=== PATIENT | male | born 1945 | race Caucasian/White ===

== ENCOUNTER 2018-09-05 14:09 | Inpatient (IN) | payer MEDICARE, OTHER ==
[~2018-09-05] VITALS: Ht 172.7 cm; Wt 86.2 kg
--- OUTSIDE RECORDS SUMMARY | ~2018-09-05 | XMS | Clinical Summary ---
Demographics + + + | Address | [address] | | | [place] [address] | + + + | Home Phone | | + + + | Preferred Language | Unknown | + + + | Marital Status | Single | + + + | Protestant Affiliation | Unknown | + + + | Race | Unknown | + + + | Ethnic Group | Unknown | + + + Author + + + | Author | [facility] | + + + | Organization | [facility] | + + + | Address | Unknown | + + + | Phone | Unavailable | + + + Support + + +---------+ + | Name | Relationship | Address | Phone | + + +---------+ + | Guero Lazo | ECON | Unknown | | + + +---------+ + Care Team Providers + +------+ + | Care Computer Equipment Repairer Name | Role | Phone | + +------+ + | Dr. Darshan | PP | Unavailable | + +------+ + Allergies Not on File Current Medications Not on file Active Problems Not on file Social History + +-------+ +--------+------+ | Tobacco Use | Types | Packs/Day | Years | Date | | | | | Used | | + +-------+ +--------+------+ | Never Assessed | | | | | + +-------+ +--------+------+ + + + | Sex Assigned at | Date Recorded | | | | + + + | Not on file | | + + + Plan of Treatment Not on file Results Not on filefrom Last 3 Months"
--- OUTSIDE RECORDS SUMMARY | ~2018-09-05 | XMS | Clinical Summary ---
Demographics + + + | Address | [address] | | | [place] [address] | + + + | Home Phone | | + + + | Preferred Language | Unknown | + + + | Marital Status | Single | + + + | Catholic Affiliation | Unknown | + + + | Race | Unknown | + + + | Ethnic Group | Unknown | + + + Author + + + | Author | [facility] | + + + | Organization | [facility] | + + + | Address | Unknown | + + + | Phone | Unavailable | + + + Support + + +---------+ + | Name | Relationship | Address | Phone | + + +---------+ + | Guero Lazo | ECON | Unknown | | + + +---------+ + Care Team Providers + +------+ + | Care Foreman Shipping Department Name | Role | Phone | + [...]
--- OUTSIDE RECORDS SUMMARY | ~2018-09-05 | XMS | Clinical Summary ---
Demographics + + + | Address | [address] | | | [place] [address] | + + + | Home Phone | | + + + | Preferred Language | Unknown | + + + | Marital Status | Single | + + + | Spiritism Affiliation | Unknown | + + + | Race | Unknown | + + + | Ethnic Group | Unknown | + + + Author + + + | Author | [facility] | + + + | Organization | [facility] | + + + | Address | Unknown | + + + | Phone | Unavailable | + + + Support + + +---------+ + | Name | Relationship | Address | Phone | + + +---------+ + | Guero Lazo | ECON | Unknown | | + + +---------+ + Care Team Providers + +------+ + | Care Gear Hobber Name | Role | Phone | + [...]
--- NOTE | 2018-09-05 18:20 | NUR ---
1811: PT ARRIVED TO MED-SURG VIA STRETCHER. HE STATES HIS ABD DISTENTION IS RATED AT 3/10 WHICH HE STATES IS ACCEPTABLE AND DENIES THE NEED FOR ANYTHING FOR IT AT THIS TIME. NG TUBE IN PLACE. NERUO INTACT.
--- NOTE | 2018-09-05 18:30 | NUR ---
NG CONNECTED TO LIWS AT THIS TIME. IV LR BOLUS STARTED OREDED.
--- NOTE | 2018-09-05 19:20 | NUR ---
BEDSIDE REPORT RECEIVED FROM OFFGOING RN. PT LYING IN BED, PARTICIPATES IN REPORT. DENIES NEEDS AT THIS TIME. CALL LIGHT IN REACH.
--- NOTE | 2018-09-05 20:28 | NUR ---
PT CALLED, IV WAS ALARMING, REQUESTED THE URINAL. STATES HE IS ABLE TO USE URINAL ON HIS OWN. INSTRUCTED TO CALL WHEN DONE.
--- NOTE | 2018-09-05 21:39 | NUR ---
PT ASSESSMENT COMPLETE. PT RESTING WITH EYES CLOSED. PT WAKES EASILY TO VOICE. PT RATES PAIN 2-3/10 TO ABD. DENIES SOB OR NAUSEA. PT ABD SEVERLY DISTENDED. BT'S ACTIVE. PT REPORTS TENDERNESS TO PALPTION. NG TO LIWS WITH SMALL AMOUNT OF LIGHT BROWN TO CLEAR DRAINAGE PRESENT. PT DENIES NEEDS AT THIS TIME. CALL LIGHT IN REACH. POC FOR THIS SHIFT DICUSSED WITH PT. PT DENIES QUESTIONS, UNDERSTANDING STATED.
--- NOTE | 2018-09-05 22:53 | NUR ---
V/S AND OUTPUT TAKEN AND RECORDED. ICE CHIPS REFILLED. NO OTHER NEEDS AT THIS TIME.
--- NOTE | 2018-09-05 23:15 | NUR ---
PT RESTING IN BED WITH EYES CLOSED. RESPIRATIONS EVEN AND UNLABORED. PT APPEARS TO BE SLEEPING. CALL LIGHT IN REACH.
--- NOTE | 2018-09-06 02:00 | NUR ---
PT RESTING IN BED WITH EYES CLOSED. RESPIRATIONS EVEN AND UNLABORED. PT APPEARS TO BE SLEEPING. CALL LIGHT WITHIN REACH.
--- NOTE | 2018-09-06 03:46 | NUR ---
PT ASSESSMENT COMPLETE. PT RESTING IN BED, AWAKE. PT REPORTS PAIN INCREASED TO 3/10. REQUESTS PRN PAIN MEDICATION, ADMINISTERED ORDERED. PT DENIES SOB. REPORTS OCCASIONAL NAUSEA, DENIES AT THIS TIME. LUNG SOUNDS DIMINISHED IN BILATERAL BASES. NG TUBE CONTINUES TO PUT OUT VERY LIGHT BROWN DRAINAGE. DRESSING SLIGHTLY COMING OFF, REAPPLIED BY THIS MONORAIL CAR OPERATOR. PT STATES HE HAD A "SNEEZING FIT" AND WAS WORRIED TUBE HAD BECOME DISLODGED. PT REASSURED BY THIS MONORAIL CAR OPERATOR THAT TUBE HAD ACTIVE DRAINAGE PRESENT. BT'S ACTIVE. ABD REMAINS TENDER TO PALPATION. PT DENIES NEEDS AT THIS TIME. CALL LIGHT IN REACH.
--- NOTE | 2018-09-06 06:25 | NUR ---
PT TO XRAY VIA WC. IV SL. NG TUBE DISCONNECTED.
--- NOTE | 2018-09-06 06:26 | NUR ---
PT SLEPT WELL THIS SHIFT. TORADOL X 1 FOR PAIN 3/10 TO ABD. BT'S ACTIVE. ABD SEVERLY DISTENDED, TENDER TO PALPATION. NG TUBE TO LIWS, CLEAR OUTPUT WITH SLIGHT BROWN TINGE. USING URINAL APPROPRIATELY, NEEDS ENCOURAGEMENT TO ATTEMPT TO VOID. SBA. D5LR@ 125. NPO WITH ICE CHIPS. VS Q4 NON ROUTINE. ZOSYN.
--- NOTE | 2018-09-06 06:49 | NUR ---
PT RETURNED FROM XRAY, RECONNECTED TO IV AND NG TO LIWS. PT ENCOURAGED TO VOID, NO VOID SINCE 199. PT STATES HE WILL TRY.
--- NOTE | 2018-09-06 07:49 | NUR ---
PATIENT IN BED RESTING WITH EYES CLOSED. CALL LIGHT IN REACH. NO FURTHER NEEDS AT THIS TIME.
--- NOTE | 2018-09-06 08:40 | NUR ---
PT RESTING QUIETLY IN BED. AROUSES EASILY TO VOICE. DENIES PAIN OR NAUSEA AT THIS TIME. NGT TO LOW INTERMITTENT SUCTION. SCANT AMOUNT OF PALE GREEN/YELLOW OUTPUT NOTED. ABD SEVERELY DISTENDED, HYPERACTIVE BT NOTED. PT DENIES FLATUS. IV INFUSING WNL. PT ALERT AND ORIENTED. CALL LIGHT WITHIN REACH.
--- NOTE | 2018-09-06 09:58 | NUR ---
PATIENT IN BED RESTING. CALL LIGHT IN REACH. NO FURTHER NEEDS AT THIS TIME. PATIENT REFUSED SHOWER AT THIS TIME.
--- NOTE | 2018-09-06 11:23 | NUR ---
FIRST TAP WATER ENEMA COMPLETED AT THIS TIME. INSERTED TIP 4INCH INTO RECTUM. ADMINISTERED 250ML OF TAP WATER, FLUID BEGAN LEAKING FROM ANUS. STOPPED FLUID FOR A COUPLE MINUTES AND ATTEMPTED TO ADMINISTER MORE BUT FLUID BEGAN LEAKING AGAIN. PT DENIED PAIN OR CRAMPING THROUGHOUT PROCEDURE. PT CURRENTLY RESTING IN BED ON LEFT SIDE. CALL LIGHT WITHIN REACH.
--- NOTE | 2018-09-06 12:15 | NUR ---
PT SBA TO RESTROOM. PASSED MOSTLY WATER FROM ENEMA, LIGHT BROWN LIQUID. SECOND TAP WATER ENEMA COMPLETED AT THIS TIME. AGAIN WAS ONLY ABOUT TO ADMINISTER APPROX 250ML OF WATER, MODERATE AMOUNT OF WATER CAME BACK OUT OF THE RECTUM UPON ADMINISTRATION. PT DENIED PAIN OR CRAMPING. NOW RESTING IN BED, CALL LIGHT WITHIN REACH.
--- NOTE | 2018-09-06 12:45 | NUR ---
PT SBA TO RESTROOM TO PASS ENEMA. MINIMAL STOOL NOTED. PT BACK TO BED. DENIES PAIN OR NAUSEA. NGT TO SUCTION PER ORDERS. CALL LIGHT WITHIN REACH.
--- NOTE | 2018-09-06 13:00 | NUR ---
PT ONLY HAD 50ML URINE OUT. BLADDER SCANNED FOR 60ML. DR. PINA NOTIFIED. 500ML LR BOLUS ORDERED.
--- NOTE | 2018-09-06 13:22 | NUR ---
CHESTER JESUS REQUESTED I NOT VISIT PT AT THIS TIME-HE IS INVOLVED IN BOWL PREP FOR SCOPE LATER TODAY. WILL FOLLOW NEEDED
--- NOTE | 2018-09-06 13:27 | NUR ---
PATIENT IN BED RESTING. CALL LIGHT IN REACH. NO FURTHER NEEDS AT THIS TIME.
--- NOTE | 2018-09-06 14:07 | NUR ---
PT OFF THE UNIT AT THIS TIME WITH MISSY BRIGGS FROM SURGERY.
--- NOTE | 2018-09-06 15:04 | NUR ---
PT COMPLETED PREOP WIPES. AMB TO STRETCHER AND TRANSPORTED TO OR AT THIS TIME.
--- NOTE | 2018-09-06 15:43 | NUR ---
09/06/18 1543 Samanta Ferreira 1515 PT ARRIVED IN PACU SLEEPY LAYING ON LEFT SIDE. ABD FIRM AND DISTENDED. NGT TO LCS. 1525 REPOSITIONED TO BACK. 1540 ANESTHESIA AT BEDSIDE WITH NEW ORDERS.
--- NOTE | 2018-09-06 16:29 | NUR ---
PT RETURNED FROM PACU VIA STRETCHER, AMB WITH MINIMAL ASSIST TO HOSPITAL BED. PT DROWSY BUT ORIENTED TO ALL. DENIES PAIN BUT REPORTS "A LOT OF DISCOMFORT" IN ABD. ABD SEVERLY DISTENDED AND FIRM. HYPER ACTIVE BT NOTED THROUTOUT. PT NOTED TO HAVE MOIST COUGH, STATES "I HAVE HAD A COLD FOR A FEW DAYS." SMALL AMOUNT OF SPUTUM PRODUCTION PER PT. DENIES SOB OR OTHER CONCERNS. CALL LIGHT WITHIN REACH.
--- NOTE | 2018-09-06 16:37 | NUR ---
NGT TO LOW INTERMITTENT WAL SUCTION PER ORDERS. PUTTING OUT BRIGHT GREEN DRAINAGE.
--- NOTE | 2018-09-06 17:00 | NUR ---
PT ATTEMPTED TO VOID UPON ARRIVING FROM PACU. UNABLE TO. BLADDER SCANNED FOR 170ML, DR. PINA AWARE.
--- NOTE | 2018-09-06 19:10 | NUR ---
REPORT RECEIVED FROM OFFGOING RN. PT IN SURGERY AT THIS TIME.
--- NOTE | 2018-09-06 19:22 | HP ---
[facility] [address], [place] [address] Signed ADMISSION DATE: 09/05/2018 REASON FOR ADMISSION: Colonic obstruction with rectosigmoid process. 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 He is well known to me socially for many years. He has had 48 hours of increasing abdominal pain, distention, and bloating. He had no associated nausea or vomiting. He presented to the emergency room, where he was evaluated by Dr. Jones. His abdominal distention was not associated with tenderness on examination. His stools have been very small and pellet-like, and he has had what he describes as "hemorrhoids," mainly manifestation of episodic rectal bleeding, but no protruding hemorrhoids that he is aware of. He was told that he had hemorrhoids on a free prostate exam a number of years ago, possibly 10 years ago. The patient has never had colonoscopy. His evaluation in the emergency room included a CT scan of the abdomen, which showed severe circumferential wall thickening in the rectosigmoid with surrounding fat stranding, and a 9 mm extraluminal fluid collection and gas suggestive of diverticulitis or peridiverticular abscess. There were diverticula described though not readily apparent to my examination. He had proximal obstructive findings including extreme small-bowel dilation and dilated colon as well. All of the stomach was not markedly distended, a nasogastric tube was passed and 200 mL of clear fluid was removed. Implement is not painful to him now that it is placed. Notable on CT scan, which I have reviewed, was the absence of any metastatic lesions to the liver nor other intraabdominal abnormalities. His laboratory studies show an elevated white count of 17.3 and hematocrit of 41.8. Liver enzymes are normal. He is admitted for further evaluation and care for rectosigmoid obstruction related either to neoplasm or diverticular process. PAST MEDICAL HISTORY: Significant for left inguinal hernia repair with mesh in [place], [place], about 8-10 years ago. He has no other medical problems that he is aware of. FAMILY HISTORY: Negative for colon cancer. His mother had breast cancer and his father lung cancer. A brother has had alcoholism and drug substance issues. Electronically Signed By: SUAD PINA MD 09/06/181921 PATIENT NAME: CLAUDIO PAZ HISTORY AND PHYSICAL DATE OF : 43 REPORT #: [id number] PHYSICIAN: SUAD PINA MD PCP: NO PRIMARY CARE PHYSICIAN REPORT IS CONFIDENTIAL AND NOT TO BE RELEASED WITHOUT AUTHORIZATION [facility] [address], [place] [address] Signed ALLERGIES: The patient has no known drug allergies. MEDICATIONS: He takes no medications on a routine basis. REVIEW OF SYSTEMS: He denies any shortness of breath or chest pain. He has felt "rundown" lately. He denies any prior or recent problems of cough, hematemesis, but has had occasions of blood per rectum in minimal amounts. PHYSICAL EXAMINATION: GENERAL: Pleasant white man, who does not look systemically toxic. HEENT: Trachea is midline. Mucous membranes are somewhat dry. NECK: He has no carotid bruit. There is no cervical adenopathy. CHEST: Clear. HEART: Regular without murmur. ABDOMEN: Tense and distended. It is not tender. There is no palpable mass. I detect no ascites clinically. EXTREMITIES: Show no clubbing, cyanosis, or edema. LABORATORY DATA: Lab studies show white count of 17.3, hematocrit 41.8, platelets 420,000. Electrolytes, creatinine 0.8, potassium 3.4, bicarb 22. Liver enzymes are normal. Albumin 3.8. DIAGNOSTIC DATA: I have reviewed the CT scan myself as well as the report as noted by Rebecca Le M.D., [facility]'s radiologist. ASSESSMENT AND PLAN: The patient has had progressive constipation and abdominal distention and now has rectosigmoid obstruction. The circumferential thickening of the colon is worrisome in my view for colon cancer, though the possibility of a diverticular process accounting for this is possible as well. A nasogastric tube was placed on the basis of his significant abdominal distention. He will likely benefit from fluid resuscitation, antibiotics, and consideration for a limited endoscopic evaluation to affirm or refute the possibility of obstructing neoplasm. If this does represent a diverticulitis issue rather than neoplasm, he may settle with antibiotics alone. Conversely, if obstruction persists or does not improve, then operative management may be required on that basis as well. I discussed all of this with him in detail. It is notable that he has no family history of colon cancer, but similarly has never had Electronically Signed By: SUAD PINA MD 09/06/181921 PATIENT NAME: CLAUDIO PAZ HISTORY AND PHYSICAL DATE OF : 43 REPORT #: [id number] PHYSICIAN: SUAD PINA MD PCP: NO PRIMARY CARE PHYSICIAN REPORT IS CONFIDENTIAL AND NOT TO BE RELEASED WITHOUT AUTHORIZATION [address] [address] Signed colon evaluation. He has no primary physician either, though admittedly he does appear to be in robust health otherwise. MD CLYDE Britt/LLUVIAL /[id number] cc: [facility] Copies: ~ Electronically Signed By: SUAD PINA MD 09/06/18 1922 PATIENT NAME: JACKSONCLAUDIO HISTORY AND PHYSICAL DATE OF : 43 REPORT #: [id number] PHYSICIAN: SUAD PINA MD PCP: NO PRIMARY CARE PHYSICIAN REPORT IS CONFIDENTIAL AND NOT TO BE RELEASED WITHOUT AUTHORIZATION
--- NOTE | 2018-09-06 19:24 | NUR ---
09/06/181923 Samanta Ferreira 190 PT ARRIVED IN PACU NON RESPOSIVE TO VERBAL/TACTILE STIMULI. SNORING. REU. 191 PT RESPOSIVE TO VERBAL STIMULI. FALLS BACK TO SLEEP WHEN NOT STIMULATED. 1919 PT WITH NO C/O'S AT THIS TIME.
--- NOTE | 2018-09-06 20:28 | NUR ---
PT ARRIVED TO FLOOR FROM PACU. PT PRIMARY RN, AND CREDENTIALING ANALYST PASSING OFF REPORT. PT ON 2 LITERS O2, WITH A HAY CATH. PT ABLE TO ASSIST IN SLIDING SELF OVER TO THE BED FROM THE STRETCHER. AWAKE, AWARE OF SURROUNDINGS.
--- NOTE | 2018-09-06 20:54 | NUR ---
PT ASSESSMENT COMPLETE. PT RETURNED FROM SURGERY AT 2024. PT STATES THAT PAIN IS WELL CONTROLLED, 1-06/06. O2 IN PLACE @ 2LPM VIA NC. CPOX IN PLACE. PT DENIES SOB. PT DENIES NAUSEA. BT'S ACTIVE. ABD MODERATELY DISTENDED. STOMA IS RED AND MOIST. COLOSTOMY BAG IN PLACE. PT STATES THAT HE "FEELS MUCH BETTER THAN HE HAS" WITHIN THE PAST FEW DAYS. PT PROVIDED WITH ICE WATER. PT TALKED ON THE PHONE WITH HIS SISTER AND UPDATED HER REGARDING SURGERY. PT DENIES QUESTIONS AT THIS TIME. CALL LIGHT IN REACH. POSTOP CARE AND POC DISCUSSED WITH PT.
--- NOTE | 2018-09-06 21:30 | NUR ---
INFORMED BY MUSICAL INSTRUMENT MAKER OR REPAIRER THAT COLOSTOMY BAG IS LEAKING. UPON ASSESSMENT, RED DRAINAGE LEAKING FROM SPACER APPARATUS BETWEEN WAFER AND COLLECTION BAG. SPACER PRESSED DOWN AROUND ALL EDGES. DOES NOT APPEAR TO BE LEAKING ANY FURTHER AT THIS POINT. STOMA IS LONGO RED, APPEARS MOIST, AND IS UNCHANGED FROM PREVIOUS. PT ASKS APPROPRIATE QUESTIONS ABOUT COLOSTOMY CARE AND INFECTION RISKS. EDUCATION PROVIDED. PT DENIES FURTHER NEEDS AT THIS TIME.
--- NOTE | 2018-09-06 22:30 | NUR ---
COLOSTOMY BAG ASSESSED. NO LONGER APPEARS TO BE LEAKING FROM SPACER, EXCEPT WHEN BAG AND SPACER ARE MANUALLY MANIPULATED. CHUX PLACED UDNER PT AND 2X2 GAUZE PLACED AT SPACER SITE IN CASE OF FURTHER DRAINAGE. PT READING A BOOK AT THIS TIME. DENIES FURTHER NEEDS. CALL LIGHT WITHIN REACH.
--- NOTE | 2018-09-07 00:45 | NUR ---
PT RESTING IN BED WITH PILLOW OVER HIS FACE. SA02 94%, HR 67. PT DOES NOT WAKE WHILE HUMAN CAPITAL CONSULTANT IN ROOM. APPEARS TO BE SLEEPING. CALL LIGHT IN REACH.
--- NOTE | 2018-09-07 02:49 | NUR ---
PT ASSESSMENT COMPLETE. PT DECLINES PAIN AT THIS TIME. STATES THAT HE EXPERIENCED SOME PAIN WHILE COUGHING. EDUCATION REGARDING SPLINTING THE ABDOMEN PROVIDED. PT STATES UNDERSTANDING. PT DENIES SOB OR NAUSEA. LUNG SOUNDS DIMINISHED IN BILATERAL BASES. O2 IN PLACE AT 2 LPM WITH SA02 OF 95%, O2 WEANED TO 1 LPM. ABDOMEN MODERATELY DISTENDING. BT'T ACTIVE. PT REPORTS TENDERNESS UPON PALPATION. STOMA IS RED AND MOIST, UNCHANGED FROM PREVIOUS. BLOOD TINGED FLUID WELL STOOL PRESENT IN COLOSTOMY BAG. COLOSTOMY APPLIANCE NO LONGER LEAKING. PT ICE WATER REFILLED, DENIES FURTHER NEEDS AT THIS TIME. CALL LIGHT IN REACH.
--- NOTE | 2018-09-07 03:40 | NUR ---
PT REPORTS FEELING "WAKEFUL". PT DENIES NEEDS AT THIS TIME. STATES THAT HE IS NOT UNCOMFORTABLE OR PAINFUL, JUST "WAKEFUL". CALL LIGHT IN REACH.
--- NOTE | 2018-09-07 05:45 | NUR ---
PT SLEPT WELL EARLY IN SHIFT. REPORTS ONLY "RESTING" AFTER 2 AM. NO REPORTS OF PAIN, NAUSEA, OR SOB. TOLERATING RA WELL. CPOX IN PLACE POST OP. LUNG SOUNDS DIM IN BASES. ABD MODERATELY DISTENDED. BT'S ACTIVE. PT REPORTS ABD TENDERNESS UPON PALPATION. STOMA RED AND MOIST. SANGUINEOUS DRAINAGE AND STOOL PRESENT IN COLOSTOMY BAG.HAY CATH WITH CONCENTRATED URINE.
--- NOTE | 2018-09-07 08:04 | NUR ---
PATIENT IN BED RESTING. CALL LIGHT IN REACH. NO FURTHER NEEDS AT THIS TIME.
--- NOTE | 2018-09-07 08:41 | NUR ---
PATIENT UP TO CHAIR FOR BREAKFAST. LINENS CHANGED. CALL LIGHT IN REACH. NO FURTHER NEEDS AT THIS TIME.
--- NOTE | 2018-09-07 10:00 | NUR ---
PT SITTING UP IN BED AWAKE. STATES "I'M FEELING MUCH BETTER." DENIES PAIN OR NAUSEA. TOLERATING CLEARS WELL. ABD DISTENTION HAS GREATLY IMPROVED. COLOSTOMY TO LEFT LOWER QUAD. OSTOMY APPLIANCE CDI. OSTOMY BRIGHT PINK/RED, MOIST. MODERATE AMOUNT OF AIR AND STOOL MOVEMENT FROM STOMA. BROWN LIQUID OUTPUT. SUTURES AND RED RUBBER TUBE NOTED AROUND EDGE OF STOMA.
[2018-09-07] MEDS ORDERED: IBU-200200 MG PO (10:27)
[2018-09-07] MEDS ORDERED: GUMMI BEAR MUL1 EACH PO (10:27)
--- NOTE | 2018-09-07 10:28 | NUR ---
MED REC COMPLETE
--- NOTE | 2018-09-07 12:10 | NUR ---
NOTED STOOL DRAINAGE UNDER COLOSTOMY APPLIANCE. APPLIANCE REMOVED, SKIN CLEANED THOROUGHLY AND NEW APPLIANCE APPLIED WITH SPACER ATTACHMENT. STOMA SITE BRIGHT RED AND MOIST, GOOD AIR AND STOOL MOVEMENT NOTED. PT REPORTS ONLY MILD TENDERNESS AT SITE WITH APPLIANCE CHANGE, OTHERWISE COMFORTABLE AND WITHOUT PAIN. SATNAM DECKER BY [facility] MANAGER FILM WITH SUPERVISION BY THIS RN. PT NOW RESTING IN BED WITH MULTIPLE VISITORS AT BEDSIDE. CALL LIGHT WITHIN REACH.
--- NOTE | 2018-09-07 13:34 | NUR ---
PT IS RESTING IN BED-NG TUBE OUT. PT WELCOMED ME IN, HAD JUST A MOMENT WITH HIM AND PHONE RANG. PT TOOK CALL, TOLD HIM I WOULD COME BACK. I LEFT, A PULP MIXER AND SOME OTHER VISITORS CAME TO CARE FOR PT. WILL CONTINUE TO FOLLOW NEEDED
--- NOTE | 2018-09-07 14:20 | NUR ---
PT SITTING UP IN BED. STOMA SITE REMAINS UNCHANGED. PT DENIES PAIN OR OTHER NEEDS OR CONCERNS. CALL LIGHT WITHIN REACH.
--- NOTE | 2018-09-07 16:00 | EKG ---
[facility] [address] [address] [place] [address] Signed Normal sinus rhythm Incomplete right bundle branch block Borderline ECG No previous ECGs available Confirmed by ANNELIESE FRASER MD ([id number]) on 09/07/2018 4:00:38 PM Electronically Signed By: ANNELIESE FRASER MD 09/07/18 1600 PATIENT NAME: CLAUDIO PAZ Electrocardiogram DATE OF : 43 PHYSICIAN: ANNELIESE FRASER MD REPORT #: [id number] REPORT IS CONFIDENTIAL AND NOT TO BE RELEASED WITHOUT AUTHORIZATION
--- NOTE | 2018-09-07 16:20 | NUR ---
PT AMB HALLWAY WITH SBA, KIRSTEN WELL.
--- NOTE | 2018-09-07 16:28 | NUR ---
PATIENT AMBLUATED IN HALLWAY 3 LAPS, SBA. NEW GOWN PROVIDED. PATIENT NOW IN BED RESTING. FRESH WATER GIVEN. CALL LIGHT IN REACH. NO FURTHER NEEDS AT THIS TIME.
--- NOTE | 2018-09-07 17:54 | OR ---
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 PROCEDURE PERFORMED: Decompressive loop, left-sided colostomy. ANESTHESIA: General endotracheal; Ivon Pereyra CRNA. INDICATION: This 72-year-old Kimmy montemayor was admitted by me yesterday, on September 05, 2018, presented to the emergency room and evaluated by Dr. Jones with marked abdominal distention. A CT scan showed obstruction in the region of the rectosigmoid. There appeared to be pericolonic and perirectal fat stranding and concern was maintained for possible diverticular process causing obstruction versus neoplasm. He was given a nasogastric tube for decompression, broad-spectrum antibiotics, and shows no improvement of his distention. Earlier today, he underwent limited colonoscopy after tap water enema preparation confirming a nearly completely obstructing rectosigmoid cancer starting in the midrectum. He has significant abdominal distention, persistent white cell elevation, decreased urine output, and emergency decompression is recommended. I discussed with him a tentative plan for emergency decompression of the colon, subsequent neoadjuvant chemoradiation therapy, and ultimately resection. He agrees to our current plan. FINDINGS: Marked abdominal distention was noted. Left colon was easily identified and a loop colostomy formed through a left-sided low lateral incision. A midline incision was not performed. The colostomy was matured allowing for some decompression and abdominal distention. Passage of a red rubber catheter retrograde and antegrade allowed for irrigation and decompression. I expect more full decompression to occur in the next day Electronically Signed By: SUAD PINA MD 09/07/18 1754 PATIENT NAME: CLAUDIO PAZ OPERATIVE REPORT DATE OF : 43 REPORT #: [id number] PHYSICIAN: SUAD PINA MD PCP: NO PRIMARY CARE PHYSICIAN REPORT IS CONFIDENTIAL AND NOT TO BE RELEASED WITHOUT AUTHORIZATION [facility] [address], [place] [address] Signed or two. DESCRIPTION OF PROCEDURE: The patient was brought to the operating room, given a general endotracheal anesthetic. Zosyn antibiotic was administered in the operating room close to his scheduled dose. A Hou catheter was placed by myself, which showed some turbid somewhat concentrated urine. The abdomen was clipped and prepared for chlorhexidine solution and draped sterilely. The anterior superior iliac spine and costal margin were marked and a relationship appropriate for colostomy identified. A transverse incision was made over that area in the left lateral abdomen. Dissection carried through the subcutaneous tissue with electrocautery. A somewhat Gridiron type incision was used allowing for entry into the peritoneal cavity. Inflammatory fluid was noted, but no purulence, no sign of perforation noted. Gram-stain and cultures were obtained. With careful manipulation, a segment of left colon was identified and gently grasped on the teniae libera with Tombstone clamp. The segment of colon was then rocked into position extruding it completely from the abdomen. It was tense and distended as would be expected. Kody clamps were applied to the inner table of the abdominal wall and using 3-0 silk sutures a portion of teniae was secured. A mesenteric window was created with blunt electrocautery dissection and a large red rubber catheter beneath the loop. Portions of the unopened colon were secured to the dermis with interrupted 3-0 silk suture and then a longitudinal colotomy made on the teniae libera. Egress of a small amount of stool and air was noted. The colostomy was then matured with interrupted 3-0 silk suture. A red rubber catheter was passed antegrade (downstream) allowing for egress of some liquid stool and air. Catheter was withdrawn and directed retrograde into the proximal colon and with more effort and irrigation and so forth decompression undertaken more fully. The abdomen was much softer than at the time of operation, but remains distended as might be expected. I will expect for good decompression over the next 24 hours. The colostomy was completely matured. The red rubber catheter was secured to the skin with 2-0 nylon suture and trimmed to appropriate length and an ostomy appliance applied. The patient was ultimately allowed to emerge from anesthesia, extubated, and transported to recovery in good condition having suffered no complications. Sponge, needle, and instrument counts reported as correct x3. Suad Pina MD Electronically Signed By: SUAD PINA MD 09/07/18 1754 PATIENT NAME: CLAUDIO PAZ OPERATIVE REPORT DATE OF : 43 REPORT #: [id number] PHYSICIAN: SUAD PINA MD PCP: NO PRIMARY CARE PHYSICIAN REPORT IS CONFIDENTIAL AND NOT TO BE RELEASED WITHOUT AUTHORIZATION [address] [address] Signed CLYDE/ANJUM /[id number] cc: [facility] Copies: ~ Electronically Signed By: SUAD PINA MD 09/07/18 1754 PATIENT NAME: CLAUDIO PAZ OPERATIVE REPORT DATE OF : 43 REPORT #: [id number] PHYSICIAN: SUAD PINA MD PCP: NO PRIMARY CARE PHYSICIAN REPORT IS CONFIDENTIAL AND NOT TO BE RELEASED WITHOUT AUTHORIZATION
--- NOTE | 2018-09-07 17:54 | OR ---
[facility] [address], [place] [address] Signed DATE OF OPERATION: 09/06/2018 SURGEON: Suad Pina MD PREOPERATIVE. DIAGNOSIS: Obstructed colon at rectosigmoid tumor versus diverticular process. POSTOPERATIVE DIAGNOSIS: Obstructing mid to low rectal neoplasm. PROCEDURE: Partial colonoscopy with biopsy of rectal mass and excision of rectal polyp. ANESTHESIA: Propofol infusion. 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 This was highly suspicious for obstructing neoplasm in my estimation, but was considered a diverticular process as there are peridiverticular inflammatory changes as well. The patient has had some rectal bleeding over time. He has never had colonoscopy and has no primary care physician. Fluid resuscitation was undertaken and broad-spectrum antibiotic Zosyn given. He maintains an elevated white count today at 18,000 and yesterday 17,000. A plain abdominal x-ray shows continued colonic obstruction. I have recommended colonoscopy to affirm and refute the etiology of the obstruction as neoplasm versus a diverticular phlegmon. The risks of bleeding, infection, and perforation were reviewed with him. He understands and wished to proceed. FINDINGS: Tumor was the obstructing problem. The tumor is in the mid to upper rectum. It is reachable by digital examination at the extent of my finger, which in aggregate is about 9 cm. There was a small polyp in the rectum additionally, which was separately excised. The colonoscope could not pass through the lesion to allow for decompression, though there is a slight window for such eventuality. Electronically Signed By: SUAD PINA MD 09/07/18 1754 PATIENT NAME: CLAUDIO PAZ OPERATIVE REPORT DATE OF : 43 REPORT #: [id number] PHYSICIAN: SUAD PINA MD PCP: NO PRIMARY CARE PHYSICIAN REPORT IS CONFIDENTIAL AND NOT TO BE RELEASED WITHOUT AUTHORIZATION [facility] [address], [place] [address] Signed DESCRIPTION OF PROCEDURE: The patient was brought to the endoscopy suite and placed in lateral decubitus position. He was given intravenous sedation with full cardiopulmonary monitoring by the accessioner with propofol infusional technique. Initial digital examination showed no sign of low rectal mass. An Olympus video colonoscope was passed in the rectum and passed into the rectosigmoid junction where immediately noted was a circumferential friable neoplasm. The scope was able to manipulate through the tumor to a degree, but then nearly complete obstruction was noted cephalad to that. The scope was withdrawn and a somewhat pedunculated polyp was noted inferior to the lesion itself. This was excised. Biopsies were then taken of the friable circumferential cancer. Scope was removed. Digital examination was again once undertaken this time extending the exam as high as possible in which case a somewhat fixed circumferential lesion could be identified on palpation. Mindful of the depth of the examination, I believe the tumor to be about at most 9 cm from the anal verge. The patient was taken to recovery room in good condition. CONCLUDING DIAGNOSIS: Nearly obstructing rectal cancer. PLAN: Decompression will likely be needed on an emergent basis. Standard therapy would be considered a neoadjuvant chemoradiation therapy and single stage resection in the future. I will review his options with him. MD CLYDE Britt/MODL /[id number] cc: [facility] Electronically Signed By: SUAD PINA MD 09/07/18 1754 PATIENT NAME: JACKSONCLAUDIO OPERATIVE REPORT DATE OF : 43 REPORT #: [id number] PHYSICIAN: SUAD PINA MD PCP: NO PRIMARY CARE PHYSICIAN REPORT IS CONFIDENTIAL AND NOT TO BE RELEASED WITHOUT AUTHORIZATION [facility] [address] [place], [place] [address] Signed Copies: ANNELIESE JOHNS MD Electronically Signed By: SUAD PINA MD 09/07/18 1754 PATIENT NAME: CLAUDIO PAZ OPERATIVE REPORT DATE OF : 43 REPORT #: [id number] PHYSICIAN: SUAD PINA MD PCP: NO PRIMARY CARE PHYSICIAN REPORT IS CONFIDENTIAL AND NOT TO BE RELEASED WITHOUT AUTHORIZATION
--- NOTE | 2018-09-07 18:47 | NUR ---
PATIENT IN BED RESTING. DINNER ERICK AT BEDSIDE. FRESH WATER GIVEN. CALL LIGHT IN REACH. NO FURTHER NEEDS AT THIS TIME.
--- NOTE | 2018-09-07 18:58 | NUR ---
PT SITTING UP IN BED. FINISHING CLEAR LIQUID TRAY. DENIES NAUSEA OR OTHER CONCERNS. COLOSTOMY CONT TO PUT OUT BROWN LIQUID STOOL AND MODERATE AMOUNT OF AIR. APPLIANCE INTACT. STOMA SITE BRIGHT RED, MOIST. CALL LIGHT WITHIN REACH.
--- NOTE | 2018-09-07 19:51 | NUR ---
ROUNDED CHARGE. PATIENT IS RESTING IN BED WITH EYES CLOSED. RR 18. CALL LIGHT IN REACH.
--- NOTE | 2018-09-07 19:55 | NUR ---
REPORT RECEIVED FROM DAY SHIFT RN. PT LAYING IN BED. PT ALERT AND ORIENTED, USING INCENTIVE SPIROMETER. PATIENT HAS COURSE SOUNDING PRODUCTIVE COUGH. PT DENIES PAIN OR NAUSEA. NO OTHER REQUESTS OR COMPLAINTS AT THIS TIME. CALL LIGHT IN REACH.
--- NOTE | 2018-09-07 21:16 | NUR ---
ASSESSMENT COMPLETE. BOWEL TONES ACTIVE, 50 ML STOOL EMPTIED FROM COLOSTOMY. PT MENTIONED THAT HE PASSED A SMALL AMOUNT OF BLOODY DRAINAGE FROM HIS ANUS. PT DENIES PAIN OR NAUSEA. PT AMBULATED 4X AROUND THE NURSING UNIT WITHOUT C/O DIZZINESS OR PAIN. PT DID OWN PM CARE, BACK TO BED. SCD'S IN PLACE. CALL LIGHT IN REACH.
--- NOTE | 2018-09-07 22:30 | NUR ---
PT OOB TO AMBULATE TO THE BR WITH MINIMAL ASSIST TO VOID 100 ML YELLOW URINE. PT C/O "BURNING" DURING URINATION. EXPLAINED TO PT THE HAY CATHETAR CAN CAUSE IRRITATION TO THE URETHRA BUT TO LET STAFF KNOW IF IT PERSISTS. 50 ML OF LIQ BROWN STOOL EMPTIED FROM COLOSTOMY. PT DENIES PAIN OR NAUSEA. BACK TO BED, SCD'S IN PLACE, CALL LIGHT IN REACH.
--- NOTE | 2018-09-08 01:20 | NUR ---
PT RESTING IN BED WTIH EYES CLOSED, RR EVEN AND UNLABORED. CALL LIGHT IN REACH.
--- NOTE | 2018-09-08 04:15 | NUR ---
PT BUMPED IV IN LEFT HAND, IV STARTED LEAKING FLUID AND BECAME SORE. IV IN LEFT HAND DC'D, NEW 22G IV STARTED BY SOULEYMANE BRIGGS IN RIGHT WRIST. PT KIRSTEN WELL, IV FLUIDS INFUSING WITHOUT DIFFICULTY. PT DENIES OTHER NEEDS AT THIS TIME, CALL LIGHT IN REACH.
--- NOTE | 2018-09-08 04:40 | NUR ---
PT CALLED TO REPORT PAIN IN THE RIGHT WRIST WHERE THE NEW IV HAD BEEN PLACED. MINIMAL SWELLING AND SLIGHT REDNESS NOTED, PT STATES "IT JUST THROBS:. IV DC'D, CATHETAR INTACT. WARM PACK PROVIDED FOR COMFORT. AWAITING RN FOR RE-START. CALL LIGHT IN REACH.
--- NOTE | 2018-09-08 05:56 | NUR ---
PT HAS RESTED WELL THROUGH OUT THE NIGHT WITH NO COMPLAINTS OF PAIN OR NAUSEA. BOWEL TONES ARE ACTIVE, COLOSTOMY DRAINING BROWN LIQUID STOOL AND AIR. PT MENTIONED BURNING WITH URINATION HAS GOTTEN BETTER OVER NIGHT, URINE OUTPUT HAS INREASED OVER NIGHT. STOMA IS RED AND MOIST, RED RUBBER TUBE IS STILL IN TACT. ABDOMEN REMAINS DISTENDED AND SOFT, TENDER NEAR THE STOMA UPON PALPATION. PT ON RA.
--- NOTE | 2018-09-08 07:38 | NUR ---
REPORT RECEIVED FROM ROSS. PT ASLEEP WITH PILLOW ON HEAD.
--- NOTE | 2018-09-08 09:14 | NUR ---
DID ASSESSMENT AND MED PASS WITH STUDENT CHESTER GREENFIELD. PT AWAKE AND DENIES PAIN OTHER THAN SLIGHT WITH MOVEMENT. EDUCATED PT AND STUDENT ON OSTOMY. STOMA WNL, RED AND BEEFY. PT GIVEN GREEN TEA. LUNGS CLEAR, BT HYPOACTIVE.
--- NOTE | 2018-09-08 10:11 | NUR ---
PT RESTING WITH EYES CLOSED. WILL GO FOR WALK BEFORE LUNCH.
--- NOTE | 2018-09-08 11:28 | NUR ---
ADMINSITERED ZOSYN PER ORDER WNL. FATHER DESIRAE IN VISITING PT.
--- NOTE | 2018-09-08 13:02 | NUR ---
FINALLY TALKED PT INTO NO VISITORS FOR AWHILE, HAD BEEN UNABLE TO WALK FOR ALL THE GUESTS. WALKED FOUR LAPS IN JORD[place]. PASSED MORE STOOL AND COPIOUS FLATUS. PT NOW SITTING UP IN CHAIR. CALL LIGHT IN REACH. EMPTIED AND BURPED OSTOMY BAG TWICE AND SHOWED PT EACH TIME. WILL HAVE HIM DO NEXT TIME.
--- NOTE | 2018-09-08 14:14 | NUR ---
TRIED NUMEROUS TIMES TO VISIT PT. HE HAS HAD NUMEROUS VISITORS. CHESTER CHRISTENSEN PLACED NO VISITORS SIGN TO GIVE PT SOME REST TIME. WILL CONTINUE TO FOLLOW NEEDED
--- NOTE | 2018-09-08 14:39 | NUR ---
PT UP TO SHOWER. SITTING ON SHOWER CHAIR. CALL LIGHT IN REACH.
--- NOTE | 2018-09-08 15:36 | NUR ---
PT SITTING UP IN CHAIR. REHOOKED TO IVF. OSTOMY EMPTIED. STOMA WNL. PT STATES HE WALKED AROUND IN ROOM FOR 10 MINUTES. WOULD NOW LIKE TO TAKE A NAP IN CHAIR.
--- NOTE | 2018-09-08 18:55 | NUR ---
PALEOLOGY PROFESSOR REPORTED TEMP ON 99.9. PT EDUCATED ON IS USE. WILL CONT TO MONITOR
--- NOTE | 2018-09-08 19:25 | NUR ---
REPORT RECEIVED FROM DAY SHIFT RN, ANDREE. PT RESTING IN BED WITH EYES CLOSED. ELEVATED TEMP OF 99.6 NOTED, ENCOURAGED PT TO AMBULATE, PT AGREED. POST AMBULATION TEMP NOTED AT 98.6. WILL CONTINUE TO MONITOR TEMP. PT DENIES PAIN OR NAUSEA. NO OTHER COMPLAINTS OR REQUESTS AT THIS TIME. CALL LIGHT IN REACH.
--- NOTE | 2018-09-08 21:25 | NUR ---
ASSESSMENT COMPLETE. PM MEDICATIONS GIVEN WITHOUT DIFFICULTY. PT DENIES PAIN OR NAUSEA. BOWEL TONES HYPOACTIVE. PT STATES HE "HASN'T BEEN GASSY TODAY". IV CHANGED TO RIGHT WRIST PER PT REQUEST DUE TO LEFT AC OCCLUDING. FLOAT CHESTER ROSAS PUT A 22 G IN THE RIGHT WRIST, IVF INFUSING WITHOUT ISSUE. STOMA APPEARS PINK AND MOIST, PT HAS BEEN TENDING TO HIS OSTOMY INDEPENDENTLY. NO OTHER REQUESTS AT THIS TIME. CALL LIGHT IN REACH.
--- NOTE | 2018-09-08 21:30 | NUR ---
SPOKE WITH DR PINA ABOUT PT'S TEMP AND THE PT'S LACK OF SLEEP THE NIGHT PRIOR. AGREED TO LET THE PT SLEEP WITHOUT DISTURBING HIM FOR VS'S, IF THE PATIENT HAPPENS TO WAKE ASSESS THE TEMP AT THAT POINT.
--- NOTE | 2018-09-08 21:47 | NUR ---
ROUNDED CHARGE. PATIENT DENIES ANY COMMENTS, QUESTIONS OR CONCERNS. ALISON RN IN ROOM TO PLACE NEW IV. ROSS STUDENT RN IN ROOM TO ASSES PATIENT. NO NEEDS NOTED. CALL LIGHT IN REACH.
--- NOTE | 2018-09-08 23:26 | NUR ---
PT UP TO BR INDEPENDENTLY TO VOID 400 ML OF YELLOW URINE AND DRAIN 150 ML OF BROWN LIQUID STOOL FROM OSTOMY. IV BEEPING OCCLUDED, FLUSHED WITH 10 ML OF NS. SITE REMAINS PATENT. INSTRUCTED PT TO CALL FOR ASSISTANCE WHEN GETTING OOB DUE TO IV AND SCD'S. PT CONFIMS UNDERSTANDING. CALL LIGHT IN REACH.
--- NOTE | 2018-09-09 00:10 | NUR ---
PT RESTING IN BED WITH PILLOW OVER HIS HEAD. RR EVEN AND UNLABORED. CALL LIGHT IN REACH.
--- NOTE | 2018-09-09 03:31 | NUR ---
IN TO ADMINISTER IV ABX, PT RESTING WITH PILLOW OVER HIS HEAD. WARM BLANKETS PROVIDED PER PT REQUEST. TEMP 98.5 NO OTHER COMPLAINTS OR REQUESTS AT THIS TIME. CALL LIGHT IN REACH.
--- NOTE | 2018-09-09 05:27 | NUR ---
PT HAS RESTED WELL ALL NIGHT WITH NO COMPLAINTS OF PAIN OR NAUSEA. STOMA IS RED AND BEEFY. OSTOMY DEVIDE REMAINS PATENT. PT INDEPENDENTLY BURPRING AND EMPTYING APPLIANCE. PT WAS NOTED TO BE FEBRILE LAST EVENING. PT WAS ENCOURAGED TO AMBULATE AND CONTINUE TO USE THE IS WHICH BROUGHT HIS TEMP DOWN BELOW 98.6. ABDOMEN STILL DISTENDED WITH HYPOACTIVE BOWEL TONES.
--- NOTE | 2018-09-09 06:43 | NUR ---
PT UP TO BR WITH MINIMAL ASSISTANCE TO VOID 220 ML AND EMPTY 250 ML OF LIQUID BROWN STOOL FROM OSTOMY DEVICE. PT C/O OF URGENCY AND "BLADDER IRRITATION" WHEN VOIDING. WILL PASS ALONG IN MORNING CHARGE NURSE REPORT TO DISCUSS WITH MD.
--- NOTE | 2018-09-09 08:07 | NUR ---
PATIENT UP TO CHAIR FOR BREAKFAST, SBA. STUDENT NURSE IN ROOM. CALL LIGHT IN REACH. NO FURTHER NEEDS AT THIS TIME.
--- NOTE | 2018-09-09 08:36 | NUR ---
PT IS UP SITTING IN CHAIR FOR BREAKFAST. CALL LIGHT IS IN REACH
--- NOTE | 2018-09-09 08:50 | NUR ---
PT SITTING IN CHAIR. PT DENIES PAIN. PT ON ROOM AIR, LUNG SOUNDS CLEAR. PT TOLERATING FULL LIQUID DIET, DENIES NAUSEA. PT ABLE TO EMPTY COLOSTOMY, DISCUSSED PLAN ON FURTHER EDUCATION REGARDING APPLIANCE CHANGES AND EMPTYING BAG. PT WITHOUT EDEMA, CMS INTACT. IV INFUSING D5LR 125. PT INDEPENDENT IN ROOM. DISCUSSED PLAN OF CARE FOR THE DAY. PT DENIES OTHER NEEDS AT THIS TIME.
--- NOTE | 2018-09-09 08:54 | NUR ---
YESTERDAY I CALLED AND GOT AN APPOINTMENT WITH DR RO AND FAXED THEM THE RECORDS THEY NEEDED. I CALLED TO ESTABLISH CARE WITH DR CANADA IN [place] AND THEY NEEDED PATHOLOGY RECORDS. THEY WERE NOT AVAILABLE YESTERDAY AND TODAY THEY WERE ON THE CHART. FAXED THEM THIS MORNING AND THEY WILL CONTACT HIM WITH AN APPOINTMENT AFTER THE DOCTOR REVIEWS THE RECORDS.
--- NOTE | 2018-09-09 09:15 | NUR ---
PT SALINE LOCKED PER ORDER. PV DESIGN AND INSTALLATION TECHNICIAN ADMINISTERED PEPCID WITH SUPERVISION. PT DNEIES OTHER NEEDS AT THIS TIME.
--- NOTE | 2018-09-09 09:23 | NUR ---
PT IS SALINE LOCKED. SITTING IN CHAIR WITH VISITOR IN ROOM. CALL LIGHT IS IN REACH.
--- NOTE | 2018-09-09 09:34 | NUR ---
THE ROLLING MILL OPERATOR FROM DR CANADA OFFICE CALLED TO REQUEST A DEMOGRAPHIC SHEET, SHE WILL BE CALLING ME BACK TO SET UP AN APPOINTMENT.
--- NOTE | 2018-09-09 09:41 | NUR ---
SCHEDULED PATIENT WITH DR CANADA FOR NEXT THURSDAY AT 12:30 IN [place]
--- NOTE | 2018-09-09 10:30 | NUR ---
THIS RN ASSUMING CARE OF PT. REPORT RECEIVED FORM CHESTER LYON. THIS RN TO ROOM WITH MD FOR ROUNDS. PT UPDATED ON PLAN OF CARE. FURTHER EXPLANATION OFFERED BY THIS RN. PT VERBALIZES UNDERSTANDING AND STATES HIS QUESTIONS HAVE BEEN ANSWERED. PT VISITING WITH WORKSITE WELLNESS PRACTITIONER. NO ADDITIONAL REQUESTS OR COMPLAINTS AT THIS TIME. CALL LIGHT WITHIN REACH.
--- NOTE | 2018-09-09 12:12 | NUR ---
MEDICATIONS DUE. GIVEN ORDERED (SEE MAR). PT TALKING WITH VISITORS AND EATING LUNCH. NO ADDITIONAL REQUESTS OR COMPLAINTS AT THIS TIME. CALL LIGHT WITHIN REACH.
--- NOTE | 2018-09-09 13:17 | NUR ---
CHESTER DÍAZ TAKING OVER CARE OF PT. REPORT GIVEN. QUESTIONS ASKED AND ANSWERED.
--- NOTE | 2018-09-09 14:19 | NUR ---
PT SITTING IN CHAIR-ALERT, ORIENTED AND VISITING WITH A FRIEND. JUST WANTED TO CHECK IN BRIEFLY WITH PT, HAD POSITIVE TIME. HE HASN'T LOST HIS SENSE OF HUMOR AND SEEMS TO ENJOY COMPANY-MAYBE A LITTLE TOO MUCH! EXTENDED A BLESSING, WILL FOLLOW NEEDED
--- NOTE | 2018-09-09 15:28 | NUR ---
THIS RN ASKED TO ASSIST WITH IV START. PIV STARTED PER PROTOCOL IN RIGHT HAND. BLOOD RETURN NOTED. PIV SALINE LOCKED AT THIS TIME. PTS RN, BRE, INFORMED. PT STATES HE HAS NO ADDITIONAL REQUESTS OR COMPLAINTS AT THIS TIME.
--- NOTE | 2018-09-09 15:50 | NUR ---
POTASSIUM INFUSION RESTARTED TO RIGHT HAND IV. PT ON PHONE.
--- NOTE | 2018-09-09 16:27 | NUR ---
POTASSIUM INFUSION DUE. THIS RN TO BEDSIDE TO ASSIST PRIMARY RN. SBA UP TO RESTROOM AND BACK TO BED. MEDICATION STARTED (SEE MAR). PT REQUESTS TIME TO REST. NO ADDITIONAL REQUESTS OR COMPLAINTS AT THIS TIME. CALL LIGHT WITHIN REACH.
--- NOTE | 2018-09-09 17:34 | NUR ---
PT GIVEN AUGMENTIN PER ORDER. PT EATING DINNER, PT DENIES NEEDS AT THIS TIME.
--- NOTE | 2018-09-09 17:44 | NUR ---
PT ALERT/ORIENTED. PT ON ROOM AIR, LUNG SOUNDS CLEAR. PT ADVANCED TO REGULAR DIET, TOLERATING WELL, BOWEL TONES ACTIVE. PT DOING SELF CARE FOR OSTOMY EMPTYING, ORDER GIVEN TO DAYSURGERY FOR OUTPATIENT OSTOMY CARE, PLAN TO START TOMORROW. PT INDEPENDENT IN ROOM. IV FLUIDS DC, POTASSIUM RIDER AND MAG RIDER GIVEN. PT HAS NOT REQUIRED PRN PAIN MEDICATION, DENIES PAIN. PLAN FOR DC TOMORROW.
--- NOTE | 2018-09-09 19:08 | NUR ---
RECIEVED BEDSIDE REPORT FROM BRE BRIGGS. PATIENT LAYING AWAKE IN BED. FRESH WATER PROVIDED TO PATIENT. OSTOMY ASSESSED, WNL. WHITE BOARD UPDATED. CALL LIGHT WITHIN REACH. PATIENT DENIES ANYMORE NEEDS AT THIS TIME.
--- NOTE | 2018-09-09 20:51 | NUR ---
ASSESSMENT COMPLETE. MEDICATION ADMINISTERED PER ORDER. PT DENIES HAVING PAIN, CHEST PAIN, SHORTNESS OF BREATH, OR DIFFICULTY BREATHING. PATIENT DENIES ABD TENDERNESS, PT REPORTS PASSING FLATUS. STOMA ASSESSED, WNL, PINK IN COLORATION, APPLICATION AROUND STOMA IS WNL AND DRAINING STOOL. PT DENIES HAVING ANY QUESTIONS ABOUT COLOSTOMY AT THIS TIME, PT REPORT EMPTING COLOSTOMY INDEPENDENTLY. PT DENIES NUMBNESS AND TINGLING IN EXTREMITIES. DENIES NAUSEA. FOOD TRAY REMOVED FROM ROOM. IV ASSESSED, WNL. PT REFUSED TO WEAR SCDs. CALL LIGHT WITHIN REACH. PT DENIES ANYMORE NEEDS AT THIS TIME.
--- NOTE | 2018-09-09 22:08 | NUR ---
VITALS AND I&OS DONE AND CHARTED. INFORMED CHESTER SCHNEIDER OF B\P AND TEMP. HELPED PT TO THE BATHROOM AND BACK TO BED. BEDSIDE TABLE AND CALL LIGHT IN REACH.
--- NOTE | 2018-09-10 00:15 | NUR ---
ROUNDED ON PATIENT RESTING IN BED WITH EYES CLOSED, RESPIRATORY RATE IS EVEN AND UNLABORED. CALL LIGHT WITHIN REACH. NO SIGNS OF DISTRESS.
--- NOTE | 2018-09-10 02:55 | NUR ---
ASSESSMENT COMPLETE. PT DENIES CHEST PAIN, SHORTNESS OF BREATH, OR DIFFICULTY BREATHING. ORAL TEMPERATURE OF "99.3", ASKED PT IF PT WOULD LIKE TO REMOVE EXTRA BLANKETS AND PT DECLINED, DISCUSSED WITH CHARGE NURSE BARB, PRN TYLENOL ADMINISTRED PER ORDER. CLEAR LUNG SOUNDS NOTED, NO SIGNS OF DISTRESS. ACTIVE BOWEL TONES NOTED, PT REPORTS PASSING FLATUS. PT DENIES NAUSEA. PT REPORTS TENDERNESS AROUND STOMA IN LLQ AND DENIES TENDERNESS IN ALL OTHER QUADRANTS. STOMA ASSESSED, WNL. COLOSTOMY IN PLACE AND FUNCTIONING WNL. CALL LIGHT WITHIN REACH. POSSESSIONS AT BEDSIDE. PT DENIES ANYMORE NEEDS AT THIS TIME.
--- NOTE | 2018-09-10 03:00 | NUR ---
FRESH WATER AT BEDSIDE PER PT REQUEST. PT DENIES ADDITIONAL NEEDS, CALL LIGHT IN REACH. DOOR SHUT PER PT REQUEST.
--- NOTE | 2018-09-10 05:42 | NUR ---
VITALS AND I&OS DONE AND CHARTED. GARBAGES EMPTIED. BEDSIDE TABLE AND CALL LIGHT IN REACH.
--- NOTE | 2018-09-10 07:41 | NUR ---
Report recieved from Adela BRIGGS. Pt sleeping at this time, call pham within reach.
--- NOTE | 2018-09-10 09:31 | NUR ---
PT DENIES ANY PAIN AT THIS TIME. LARGE RED RASH NOTED ON THE PT'S BACK WHICH IS CAUSING SOME ITCHING. THE RASH DOES NOT APPEAR ANYWHERE ELSE. DR PINA NOTIFIED AND THE PT'S MEDICATIONS WERE CHANGED DUE TO THIS, SEE EMAR. PT DENIES ANY OTHER PROBLEMS.
--- NOTE | 2018-09-10 10:07 | NUR ---
PT DID 4 LAPS THIS MORNING INDEPENDENTLY. PT JUST SHOWERED. BED WAS CHANGED
--- NOTE | 2018-09-10 10:25 | NUR ---
WALKED WITH PT HE AMBULATED DOWN THE JORDAN. HE HAS PROCESSED HIS HEALTH NEWS AND IS READY TO TAKE THE NEXT STEP. PT MENTIONED HE WILL START RADIATION NEXT WEEK AND MEET CANCER CLINIC HERE IN HOUSE. HAD POSITIVE VISIT-COLLEGUE TO COLLEGUE, FRIEND TO FRIEND. PLAN IS TO DC TODAY, AND HE HAS A RIDE ARRANGED. I EXTENDED A BLESSING, WILL FOLLOW NEEDED
--- NOTE | 2018-09-10 10:53 | NUR ---
PT RESTING IN HIS CHAIR WITH NO COMPLAINTS AT THIS TIME.
--- NOTE | 2018-09-10 11:00 | NUR ---
PT CONTINUES TO DENIE ANY PAIN.
--- NOTE | 2018-09-10 11:14 | NUR ---
CALL LIGHT ANSWERED. PATIENT ASKS FOR LUNCH. PATIENT'S LUNCH ORDERED. CALL LIGHT WITHIN REACH. NO OTHER NEEDS AT THIS TIME
--- NOTE | 2018-09-10 13:01 | NUR ---
PT'S OSTOMY SITE WAFER AND BAG CHANGED ORDERED WITH CATALINO BRIGGS FROM DAY SURGERY ASSISTING. PT TOLERATED THE CHANGE WELL AND HE WAS GIVEN TEACHING WHILE THE CHANGE WAS TAKING PLACE. THE STOMA SITE APPEARS LA RED IN COLOR WITH AND THE SURROUNDING TISSUE IS INTACT WITH NO S/S OF INFECTION NOTED. THERE IS A RED RUBBER TUBE IN PLACE FROM HIS SURGERY.
--- NOTE | 2018-09-10 13:07 | NUR ---
PATIENT HAS APPOINTMENTS FOR THE NEXT 6 WEEKS IN DAY SURGERY AT 1330 OR AFTER HE IS DONE WITH [facility] FOR HSI COLOSTOMY BAG CHANGES. HE IS EDUCATED THAT SHOULD HE HAVE A PROBLEM BETWEEN DRESSINGS CHANGES THAT HE CAN COME IN AT ANYTIME AND THIS RN WOULD COME IN AND HELP HIM CHANGE/PROBLEM SHOOT HIS COLOSTOMY BAG.
--- NOTE | 2018-09-10 13:41 | NUR ---
PATIENT SITTING UP IN CHAIR. VITAL SIGNS AND I&O DONE. ICE WATER AND ORANGE SHERBET GIVEN. CALL LIGHT WITHIN REACH. NO OTHER NEEDS AT THIS TIME
[2018-09-10] MEDS ORDERED: LEVOFLOXACIN500 MG PO (14:07)
[2018-09-10] MEDS ORDERED: TYLENOL325 MG PO (14:08)
[2018-09-10] MEDS ORDERED: POTASSIUM CHLO10 ME1 PO (14:08)
[2018-09-10] MEDS ORDERED: METRONIDAZOLE250 MG PO ×2 (14:08→14:24)
[2018-09-10] MEDS ORDERED: CHANTIX1 MG PO (14:10)
[2018-09-10] MEDS ORDERED: IBUPROFEN600 MG PO (14:11)
--- NOTE | 2018-09-10 14:40 | NUR ---
PT RESTING IN HIS CHAIR WITH NO COMPLAINTS AT THIS TIME. PT HAD A TEMP OF 100.0 PER THE AUTOMATIC SERGING MACHINE OPERATOR. PT ENCOUARGED TO DEEP BREATH AND COUGH AND USE HIS IS.
--- NOTE | 2018-09-10 16:26 | NUR ---
1545: PT'S RASH ON HIS BACK APPEARS UNCHANGED. THE PT STATES THAT THE ITCHING HAS NOW DECREASED.
--- NOTE | 2018-09-14 11:41 | DS ---
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 He is well known to me socially for many years. He was admitted to the hospital with 48 hours of increasing abdominal pain, distention, and bloating. A CT scan performed under the direction of Dr. Jones in the emergency room showed findings of obstruction of the colon in the distal portion. It is uncertain whether this represented a diverticular inflammatory process or neoplasm. He is admitted for further evaluation and care. PERTINENT PHYSICAL EXAMINATION: GENERAL: Showed a pleasant white man who did not look systemically toxic. HEENT/NECK: Trachea is midline. Mucous membranes are dry. He had no carotid bruit. No cervical adenopathy. CHEST: Clear. HEART: Regular without murmur. ABDOMEN: Tense and distended, but not tender. There is no palpable mass. There is no ascites clinically. LABORATORY STUDIES: Showed a white count of 17.3, hematocrit 41.8, platelets 420,000. Electrolytes, 0.8 creatinine, potassium 3.5, bicarbonate 22. Liver enzymes normal. Albumin 3.8. HOSPITAL COURSE: The patient had marked abdominal distention and nasogastric tube was placed to allow for gastric decompression. About 200 mL of clear fluid was aspirated from there, but there was no impact on his distention. Broad-spectrum antibiotics were initiated on the possibility he may have perforated diverticulitis based on CT scan findings. He did not have generalized free air, however. He was admitted late in the evening. By morning, he felt somewhat better but he still had markedly tense distention of his abdomen. Abdominal x-ray showed no sign of improvement particularly. His white count had actually gone up to 18.2, hematocrit decreased to 37.2. My initial suspicion was this represented an obstructing rectosigmoid cancer,though considered less likely a diverticular process causing obstruction. He underwent tap water enemas and flexible sigmoidoscopy to determine which. Procedure was performed at approximately 03:30 p.m. and confirmed the suspicion of Electronically Signed By: SUAD PINA MD 09/14/18 1141 PATIENT NAME: CLAUDIO PAZ DISCHARGE SUMMARY DATE OF : 43 REPORT #: [id number] PHYSICIAN: SUAD PINA MD PCP: NO PRIMARY CARE PHYSICIAN REPORT IS CONFIDENTIAL AND NOT TO BE RELEASED WITHOUT AUTHORIZATION [facility] [address], [place] [address] Signed obstructing neoplasm. The process was in the rectum and rectosigmoid. Limited colonoscopy confirmed a rectal cancer extending from approximately 9 cm from the anal verge more proximally. The scope could not go beyond the obstruction. Digital examination confirmed the lesion to be at the very distal portion of index finger on my examination, which could be approximately 9 cm from the anal verge. It was circumferential and not fully fixed, but definitely not mobile. He underwent emergent decompression of the colon that evening with a decompressive left-sided loop colostomy. This was placed through the ostomy site itself on the left abdomen without midline incision. He had egress of stool and air quite promptly. He had progressive improvement from that point forward with decompression of the colon quite markedly. He was noted to have some level of hypokalemia and therefore was repleted with intravenous magnesium and potassium and subsequently oral potassium repletion initiated. The plan has been outlined to anticipate neoadjuvant chemoradiation therapy. The chemotherapeutic agent will be an oral agent after conferring with Dr. Ro. He has an appointment to see Dr. Ro and Dr. Akhtar, radiation oncologist in [place] in the coming week. Arrangements have been made for assistance with his colostomy as an outpatient through day surgery area. Prior to discharge, his ostomy appliance was changed. He does have ostomy supplies at the time of discharge as well. The patient has no wound to care for, since he has a colostomy that goes through the left-sided abdominal incision site forming the ostomy itself. It is noted that there is a red rubber catheter as a strut for the loop, which will be removed in due course. Additional plans were anticipated to perform low anterior resection with primary anastomosis with or without a protective ileostomy no sooner than 4 and probably no later than 6 weeks after completion of his chemoradiation therapy. Additionally, the patient is noted to smoke 1/2 pack of cigarettes a day. He has had successful smoking cessation in the past with Chantix, being abstinent of smoking for 3 years prior to resumption of his smoking in the past few years. He is interested and is encouraged to maintain a smoking cessation pattern at this point. Given the inflammatory mass, it appeared to be a possible localized perforation with extraluminal free air (very small). Antibiotic therapy was maintained, which included initially Timentin, subsequently Augmentin, ultimately changed to Flagyl and Levaquin based on a Electronically Signed By: SUAD PINA MD 09/14/18 1141 PATIENT NAME: CLAUDIO PAZ DISCHARGE SUMMARY DATE OF : 43 REPORT #: [id number] PHYSICIAN: SUAD PINA MD PCP: NO PRIMARY CARE PHYSICIAN REPORT IS CONFIDENTIAL AND NOT TO BE RELEASED WITHOUT AUTHORIZATION [facility] [address], [place] [address] Signed rash the patient developed on his back, likely related to Augmentin, that will be maintained for 5 days. DISCHARGE MEDICATIONS: 1. Levofloxacin 500 mg p.o. daily. 2. Flagyl 250 mg p.o. t.i.d. with meals #15. 3. Chantix 1 mg p.o. daily #30, refill 2. 4. Motrin 600 mg p.o. q.6 hours as needed for pain. 5. Tylenol plain 650 mg p.o. q.6 hours as needed for pain. 6. Potassium chloride 10 mEq tablets two tablets p.o. t.i.d. #15, no refill. 7. He will resume his usual multivitamin. DISCHARGE DIAGNOSES: 1. 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 2. Smoking history. 3. Perioperative hypokalemia, now treated. 4. Perirectal and sigmoidal inflammatory process, uncertain if localized perforation (treated). FOLLOWUP PLANS: He is to return to see Dr. Mcclelland and Dr. Ro next week. I will be seeing him in the next 2-3 weeks. He will have ostomy assistance through Day Surgery at [facility] in the meantime. MD CLYDE Britt/ANJUM /[id number] cc: Kylie Ro MD [facility] Electronically Signed By: SUAD PINA MD 09/14/18 1141 PATIENT NAME: CLAUDIO PAZ DISCHARGE SUMMARY DATE OF : 43 REPORT #: [id number] PHYSICIAN: SUAD PINA MD PCP: NO PRIMARY CARE PHYSICIAN REPORT IS CONFIDENTIAL AND NOT TO BE RELEASED WITHOUT AUTHORIZATION [address] [address] Signed Roxanna Akhtar M.D. Copies: KYLIE RO MD ~ Electronically Signed By: SUAD PINA MD 09/14/18 1141 PATIENT NAME: CLAUDIO PAZ DISCHARGE SUMMARY DATE OF : 43 REPORT #: [id number] PHYSICIAN: SUAD PINA MD PCP: NO PRIMARY CARE PHYSICIAN REPORT IS CONFIDENTIAL AND NOT TO BE RELEASED WITHOUT AUTHORIZATION
== END 2018-09-10 15:55 | disposition home or self-care (01) | DRG 329 ==
LOC: ED 14:09 → MS 17:51
PROVIDERS: ADMIT Surgery
PROC: 0D9N0ZZ Drainage of Sigmoid Colon, Open Approach (ICD-10-PCS; 2018-09-06)
PROC: 0DBP8ZX Excision of Rectum, Via Natural or Artificial Opening Endoscopic, Diagnostic (ICD-10-PCS; 2018-09-06)
PROC: 0D1N0Z4 Bypass Sigmoid Colon to Cutaneous, Open Approach (ICD-10-PCS; principal; 2018-09-06 15:30)
DX: C20 Malignant neoplasm of rectum (principal); K63.1 Perforation of intestine (nontraumatic); F17.210 Nicotine dependence, cigarettes, uncomplicated; L27.0 Generalized skin eruption due to drugs and medicaments taken internally; T36.0X5A Adverse effect of penicillins, initial encounter; Y92.239 Unspecified place in hospital as the place of occurrence of the external cause; E87.6 Hypokalemia
CPT/HCPCS: 00840; 36415; 71045; 74018; 74019; 74177; 80048; 80053; 82247; 82378; 82465; 83615; 83690; 83735; 84100; 84478; 84550; 85025; 87070; 87075; 87205; 88305; 93005; 93010; 94762; 99285-25; 99406; J0131; J0330; J0694; J0744; J1100; J1885; J2405; J2543; J2704; J2795; J3475; J3480; J7030; J7060; J7120

== ENCOUNTER 2019-01-11 07:49 | Inpatient (IN) | payer MEDICARE, OTHER ==
[~2019-01-11] VITALS: Ht 172.7 cm; Wt 81.7 kg
[~2019-01-11 07:49] MED LIST: BENEFIBER1 EAC1 PO; CHANTIX1 MG PO; GUMMI BEAR MUL1 EACH PO; IBU-200200 MG PO; IBUPROFEN600 MG PO; LEVOFLOXACIN500 MG PO; METRONIDAZOLE250 MG PO; POTASSIUM CHLO10 ME1 PO; PROBIOTIC1 EAC1 PO; TYLENOL325 MG PO; XELODA150 MG PO; XELODA500 MG PO
--- NOTE | 2019-01-18 13:05 | NUR ---
01/18/19 1305 Samanta Ferreira 1249 PT ARRIVED IN PACU NON RESPONSIVE TO VERBAL/TACTILE STIMULI. 1300 PT REACTIVE.
--- NOTE | 2019-01-18 14:00 | NUR ---
PT ARRIVED TO UNIT VIA HOSPITAL BED. PT DROSWY BUT ORIENTED TO ALL. REPORTS SOME PAIN IN LOWER BACK BUT OTHERWISE NO CONCERNS. DENIES NAUSEA. LARGE MIDLINE ABD DRESSING, DRESSED WITH MEPILEX AND OPSITE. BOTTOM PORTION OF MIDLINE INCISION DRESSED WITH SILVER DRESSING AND OPSITE. GAUZE AND TAPE DRESSING TO RIGHT LOWER QUAD WHERE PREVIOUS COLECTOMY WAS, CDI. BRADEN DRAIN TO RIGHT LOWER QUAD, MODERATE AMOUNT OF SEROSANGUINOUS DRAINAGE NOTED. ILEOSTOMY TO LEFT UPPER QUADRANT. VERY SMALL AMOUNT OF PINK AND BROWN MUCOUSY OUTPUT. OSTOMY SITE IS BRIGHT PINK AND APPEARS MOIST, OSTOMY APPLIANCE INTACT. BOTH IV SITES INTACT, FLUSH EASILY, IVF INFUSING WNL. HAY PUTTING OUT SMALL AMOUNT OF DARK YELLOW, CLOUDY URINE. WILL CONTINUE TO MONITOR. PT EDUCATED ON PLAN OF CARE, PT AGREEABLE. CALL LIGHT WITHIN REACH.
--- NOTE | 2019-01-18 15:39 | NUR ---
PATIENT REQUESTED TO AMBULATE IN THE HALLWAY. THIS HAND CROCHETER SAT PATIENT UP AND ASKED IF HE FELT LOOPY STILL HE SAID "A LITTLE". I ALSO ASKED IF HE FELT DIZZY AND NAUSEATED PATITENT STATED THAT HE DID. I TOLD PATIENT THAT HE SHOULD REST A LITTLE LONGER BEFORE AMBULATING IN THE HALLWAY AND HE AGREED. PATIENT SITTING UP IN CHAIR WITH LEGS ELEVATED. CALL LIGHT IN REACH. PATIENT WILL CALL IF HE WOULD LIKE ANY ANTI NAUSEA MEDICATION. NO OTHER NEEDS AT THIS TIME.
--- NOTE | 2019-01-18 15:40 | NUR ---
PT UP TO CHAIR WITH ASSISTANCE TO HELP WITH BACK PAIN. PT REPORTS DIZZINESS AND NAUSEA WITH AMB. DR. PINA AWARE. PT SITTING UP IN CHAIR LOOKING OUT WINDOW. PT KIRSTEN WATER AND CLEAR LIQUIDS AT THIS TIME. CALL LIGHT WITHIN REACH.
--- NOTE | 2019-01-18 17:26 | NUR ---
PT REPORTS NUMBNESS OF THUMB AND FIRST AND MIDDLE FINGER ON LEFT HAND. AFTER ABOUT 30 MIN REPORTED THAT THE NUMBESS HAD MOVED UP TO FOREARM AND RIGHT THUMB WELL. NEURO ASSESSMENT COMPLETED AND BENIGN. GOOD CAP REFILL AND MOVEMENT OF BILAT UPPER AND LOWER EXTREMITIES. NOTIFIED CHARGE NURSE FERMIN AND DR. PINA. NO NEW ORDERS AT THIS TIME, WILL CONTINUE TO MONITOR CLOSELY. PT SITTING UP IN RECLINER LOOKING OUT WINDOW. CALL LIGHT WITHIN REACH.
--- NOTE | 2019-01-18 17:38 | NUR ---
SITTING UP IN CHAIR CHATTING WITH A COUPLE VISITORS. REPORTS NUMBNESS UNCHANGED. NO OTHER CONCERNS AT THIS TIME. CALL LIGHT WITHIN REACH.
--- NOTE | 2019-01-18 18:44 | NUR ---
DR. PINA ROUNDING ON PT. QUESTIONS ANSWERED. PT DENIES NEEDS OR CONCERNS AT THIS TIME.
--- NOTE | 2019-01-18 19:15 | NUR ---
IN ROOM FOR REPORT, PT'S VISITORS ARE LEAVING. PT WOULD LIKE TO MOVE BACK TO THE BED AND OK TO WAIT A FEW MIN UNTIL THIS RN CAN RETURN WITH MATHS TUTOR TO ASSIST INCASE HE NEEDS MORE HELP. CALL LIGHT IS CLOSE.
--- NOTE | 2019-01-18 19:24 | NUR ---
pt assessed pt 99% on ra with clear breath sounds. pt fred is 2. per protocol stopbang orders will be dc'd
--- NOTE | 2019-01-18 20:02 | NUR ---
IN ROOM TO ADMINISTER MEDICATIONS AND ASSESS PT. HE REPORTS PAIN AT 1/10 AT THIS TIME AND NUMBESS IN HIS LEFT FOREARM AND ALL FINGERS EXEPT PINKY. IELOSTOMY LOOKS BEEFY RED AND IS DRAINING SOME BROWN LIQUID. DRESSINGS ARE CDI AND THERE IS SOME SHADOWING ON LLQ DRESSING. PT DENIES FURTHER NEEDS AT THIS TIME. CALL LIGHT IS WITHIN REACH.
--- NOTE | 2019-01-18 20:48 | NUR ---
warm pack for patient's back, provided.
--- NOTE | 2019-01-18 22:10 | NUR ---
PT CALLED BECAUSE ABOUT A BEEPING COMING FROM HIS ROOM. CORRECTED THE PROBLEM AND PT REPORTS 4/10 BACK PAIN AT THIS TIME. ADMINISTERED OFIRMEV IV. PT DENIES FURTHER NEEDS. CALL LIGHT IS WITHIN REACH.
--- NOTE | 2019-01-18 23:06 | NUR ---
PT REPORTS PAIN IS NOT BETTER WITH TYLENOL. ADMINISTERED TORADOL IV FOR 4/10 BACK PAIN. ALSO GAVE PT NEW HEAT PACK. HE DENIES FURTHER NEEDS AT THIS TIME. IV IS INFUSING FINE AND PT DENIES FURTHER NEEDS. CALL LIGHT IS WITHIN REACH.
--- NOTE | 2019-01-19 00:15 | NUR ---
PT CALLED REPORTING A FEELING OF HICUPS/SPASMS. HE SAYS THEY WENT ON FOR A WHILE SO HE DECIDED TO CALL AND UPON ENTERING THE ROOM HE SAID IT STOPPED. HE WAS WORRIED THAT IT IS RELATED TO THE TORADOL HE HAD AT 11PM. LOOKED UP ADVERSE REACTIONS AND DID NOT SEE ANYTHING THAT SEEMED RELATED. TOLD PT THAT WE CAN WATCH FOR IT NEXT TIME TORADOL IS ADMINISTERED AND SEE IF IT RETURNS. PT DENIES FURTHER NEEDS, IV IS INFUSING FINE AND CALL LIGHT IS CLOSE.
--- NOTE | 2019-01-19 02:15 | NUR ---
IN ROOM TO ASSESS PT, GET VS/I&O'S, AND ADMINISTER IV ABX. PT DENIES NEEDS AT THIS TIME. INCISIONS REMAIN THE SAME AND 10MLS EMPTIED FROM BRADEN DRAIN. NO CHANGES TO LEFT ARM NUMBNESS. PT DENIES NEEDS, IV IS INFUSING FINE, AND CALL LIGHT IS CLOSE.
--- NOTE | 2019-01-19 04:25 | NUR ---
PT CALLED TO REPORT THAT THE HICCUPS/SPASMS HAVE RETURNED FOR 30 MINUTES OR SO. WE TALKED ABOUT HOW IT MAY BE GAS OR JUST THE NERVES AND MUSLCES FROM THE MANIPULATION OF SURGERY. PT AGREED TO WALK THE HALLS TO SEE IF IT WOULD HELP. HE FELT THE SPASMS GO AWAY SHORTLY AFTER STARTING TO WALK. HE WALKED 2 LAPS AND REPORTED BURPING. ADMINISTERED OFIRMEV FOR 3/10 PAIN. PT DENIES FURTHER NEEDS AT THIS TIME. CALL LIGHT IS WITHIN REACH AND IV IS INFUSING FINE.
--- NOTE | 2019-01-19 05:31 | NUR ---
PT DID NOT SLEEP MUCH LAST NIGHT. HE HAD SPASMS/HICCUPS ON AND OFF. HIS BACK PAIN WAS WELL CONTROLLED WITH OFIRMEV AND TORADOL AND HE HAD VERY LITTLE ABD PAIN D/T BLOCK. OSTOMY IS DRAINING A SMALL AMOUNT OF BROWN/GREEN AND IS BEEFY RED IN COLOR. HE IS A SBA WITH FWW IN THE HALLS, HE AMBULATED X2 LAPS WHICH STOPPED HELPED SPASMS. HE HAS D5LA INFUSING AT 125 AND IS WEARING SCDS. HE HAS A HAY CATHETER IN PLACE AND UO IS GOOD. HE IS TOLERATING CLEAR LIQUIDS. DRESSINGS ARE CDI, BUT BRADEN IN LLQ HAS A SMALL SPOT OF DRIED DRAINAGE.
--- NOTE | 2019-01-19 06:30 | NUR ---
PATIENT AMBUALTED X2 LAPS IN THE HALLWAY A SBA. PATIENT HAS THE HICCUPS WHICH ARE CAUSING DOSCOMFORT. PATIENT IS BACK IN RECLINER RESTING. PATIENT PROVIDED WITH WARM PACK AND WARM TEA. PATIENT DENIES ANY FURTHER NEEDS. CALL LIGHT IN REACH.
--- NOTE | 2019-01-19 07:30 | NUR ---
PATIENT SITTING UP IN CHAIR. PATIENT'S BREAKFASR ORDERED. CALL LIGHT WITHIN REACH. NO OTHER NEEDS AT THIS TIME
--- NOTE | 2019-01-19 08:21 | NUR ---
Pt resting reclined in chair, pt assessment completed. Am meds adminsitered. Pt reports some gas, crampinmg and hiccups that come and go. Pt states it is tolerable at this time and denies needs for pain medications. Colostomy appears to be producing gas and some small green liquid stool. Pt denies nausea. Call light and h2o in reach. Pt denies needs or concerns at this time.
--- NOTE | 2019-01-19 10:00 | NUR ---
SPOKE WITH PATIENT IN ROOM. PATIENT UP TO CHAIR. 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 NO STAIRS, NO AMBULATION ISSUES. PATIENT DOES NOT HAVE PCP, DISCUSSED IMPORTANCE OF THIS. HE WILL FOLLOW UP WITH DR PINA AT DISCHARGE. NO KNOWN BARRIERS TO RETURNING HOME DESIRED AT DISCHARGE. HE WILL LET STAFF KNOW OF ANY CONCERNS OR QUESTIONS. WILL FOLLOW DESIRED.
--- NOTE | 2019-01-19 10:16 | NUR ---
PATIENT SITTING UP IN CHAIR. VITAL SIGNS AND I&O TAKEN BY RN STUDENT BUT CHARTING BY THIS STAFF TOXICOLOGIST. CALL LIGHT WITHIN REACH. NO OTHER NEEDS AT THIS TIME
--- NOTE | 2019-01-19 12:53 | NUR ---
Pt reports increased pain to abdomen, pt requested and received IV toradol. Call light and h2o in reach. Pt educated on burping colostomy bag and BRADEN drain emptied of 10 mls of ss drainage. Call light and h2o in reach. No further needs or concerns voiced. SCD's in place and on. IVF continue to infuse at prescribed rate.
--- NOTE | 2019-01-19 14:14 | NUR ---
PATIENT RESTING IN BED. VISITORS IN ROOM. VITAL SIGNS AND I&O TAKEN BY STUDENT RN BUT CHARTING BY THIS PRODUCTION COUNTER. CALL LIGHT WITHIN REACH. NO OTHER NEEDS AT THIS TIME
--- NOTE | 2019-01-19 14:22 | NUR ---
PT RESTING IN SEMIFOWLERS POSITION IN BED, ALERT AND ORIENTED AND SPEAKING ON CELL PHONE. VISITORS AT BEDSIDE WITH PATIENT. ASSESSMENT COMPLETED. PT STATES HIS PAIN LEVEL IS NOW TOLERABLE AND THAT HE IS NO LONGER EXPERIENCING SPASMING, HICCUPS OR PAIN. NO SOB OR NAUSEA REPORTED AND PT APPEARS TO BE IN NO ACUTE DISTRESS.
--- NOTE | 2019-01-19 18:52 | NUR ---
PATIENT AMBULATING IN THE HALLWAY. ONE PERSON ASSISTING. PATIENT BACKS TO BED. HOT TE GIVEN. CALL LIGHT WITHIN REACH. NO OTHER NEEDS AT THIS TIME
--- NOTE | 2019-01-19 19:05 | NUR ---
PT REPORTS 4/10 ABD PAIN NO PAIN MEDS AVAILABLE SO SILVANA NOTIFIED, NEW ORDER FOR PRN IV AND PO ACETAMINOPHEN -SEE ORDERS.
--- NOTE | 2019-01-19 19:31 | NUR ---
IN ROOM FOR REPORT, PT IS AWAKE IN BED. HE DENIES NEEDS AT THIS TIME. CALL LIGHT IS WITHIN REACH. IV IS INFUSING FINE.
--- NOTE | 2019-01-19 20:34 | NUR ---
IN ROOM TO ASSESS PT AND ADMINISTER MEDICATIONS. HE REPORTS PAIN AT 0 AT THIS TIME AFTER RECEIVING THE OFIRMEV. MIDLINE DRESSING IS PEELING BACK SOME ON THE SIDE OF THE OSTOMY BUT THE REST IS INTACT. GAS IS NOTED IN THE OSTOMY BAG AND BT ARE ACTIVE. PT DENIES NEEDS AT THIS TIME. CALL LIGHT IS WITHIN REACH AND IV IS INFUSING FINE.
--- NOTE | 2019-01-19 23:01 | NUR ---
PT CALLED REQUESTING PAIN MEDICINE FOR 4/10 PAIN. ADMINISTERED TORADOL AND PT DENIES FURTHER NEEDS AT THIS TIME. IV IS INFUSING FINE. CALL LIGHT IS CLOSE.
--- NOTE | 2019-01-19 23:10 | NUR ---
PT REPORTS FEELING SOB BUT DENIES OTHER SYMPTOMS. HE IS LAYING IN BED WITH HEAD ELEVATED AND LOOKS TO BE A LITTLE LOWER THAN HE SHOULD BE PLACING PRESSURE ON HIS ABD/CHEST. ASKED PT IF HE COULD SCOOT UP A LITTLE TO TAKE THE PRESSURE OFF HIS ABDOMEN. HE TRIED BUT SAYS HE HAS LESS SPASMS IN THIS POSITION. HAD PT TAKE SOME DEEP BREATHS IN AND OUT AND CHECK O2 SAT WHICH WAS BETWEEN 95 TO 97%. ASKED PT IF HE WOULD LIKE TO TRY WALKING AND HE AGREED. WILL SEE IF CHRISS SPECIFICATIONS WRITER CAN WALK WITH HIM.
--- NOTE | 2019-01-19 23:25 | NUR ---
WALKED WITH THE PT AROUND THE MED SURG FLOOR WITH HIS FWW. 2 LAPS, PER HIS REQUEST. HELPED PT BACK TO BED. SCD'S PLUGGED BACK IN. BEDSIDE TABLE AND CALL LIGHT IN REACH. PT NEEDS NOTHING MORE AT THIS TIME.
--- NOTE | 2019-01-20 00:49 | NUR ---
PT IS RESTING WITH EYES CLOSED, RESPIRATIONS ARE EVEN AND NONLABORED. IV IS INFUSING FINE AND CALL LIGHT IS WITHIN REACH.
--- NOTE | 2019-01-20 01:20 | NUR ---
PT'S IV PUMP WAS BEEPING, NEW BAG OF DRLR IS NOW INFUSING. PT CONTINUES TO REPORT SOME NUMBNESS TO HIS LEFT INDEX FINGER AND THUMB. ILEOSTOMY IS PRODUCING GAS AND SMALL AMTS OF BROWN DRAINAGE. BRADEN HAS A SMALL AMOUNT OF SEROUS DRANAGE WITH SOME DRIED DRAINAGE NOTED ON GAUZE. PT DENIES NEEDS AT THIS TIME, PAIN IS WELL CONTROLLED. CALL LIGHT IS CLOSE.
--- NOTE | 2019-01-20 02:35 | NUR ---
PT IS RESTING WITH EYES CLOSED, RESPIRATIONS ARE EVEN AND NONLABORED. CALL LIGHT IS WITHIN REACH.
--- NOTE | 2019-01-20 05:35 | NUR ---
PT CALLED REQUESTING TYLENOL FOR 4/10 PAIN. HE DENIES FURTHER NEEDS AT THIS TIME. CALL LIGHT IS WITHIN REACH.
--- NOTE | 2019-01-20 06:10 | NUR ---
PT STATES HE SLEPT BETTER LAST NIGHT THAN PREVIOUS NIGHT. HE HAD SOME NAUSEA WHICH DID NOT REQUIRE ZOFRAN. BRADEN ONLY PUT OUT 5MLS OVER NIGHT. HE AMBULATED IN THE HALLS LAST NIGHT SBA WITH FWW. HE HAS D5LR INFUSING AT 125. HIS PAIN IS WELL CONTROLLED WITH TYLENOL AND TORADOL.
--- NOTE | 2019-01-20 06:55 | NUR ---
BEDSIDE HANDOFF REPORT RECEIVED FROM CHOIR DIRECTOR RN. PT SLEEPING, LEFT UNDISTURBED.
--- NOTE | 2019-01-20 08:30 | NUR ---
PT RESTING IN BED. PT RATING PAIN 3/10, STATES HE FEELS LIKE THE IV TYLENOL IS STARTING TO WEAR OFF, GIVEN IV TORADOL PER EMAR. PT ON ROOM AIR, LUNG SOUNDS CLEAR. PT WITH OCCASIONAL NAUSEA, STATES HE FEELS NAUSEATED WITH PAIN, DECLINING NAUSEA MEDICATION AT THIS TIME, BOWEL TONES ACTIVE. PT WITH ILEOSTOMY TO RIGHT ABD, DRAINING GREENISH/BROWN FLUID. MIDLINE INCISION CDI. LEFT ABD DRESSING CDI. LEFT BRADEN DRAIN WITH SEROSANGUINOUS FLUID. CMS INTACT, PT STATES NUMBNESS TO LEFT HAND HAS RESOLVED. IV FLUIDS INFUSING D5LR AT 125ML/HR. PT REQUESTING TO GET TO CHAIR WHEN PAIN IS A LITTLE BETTER. DISCUSSED PLAN OF CARE FOR THE DAY. PT DENIES OTHER NEEDS AT THIS TIME.
--- NOTE | 2019-01-20 10:44 | NUR ---
PT ASSITED TO CHAIR, SBA WITH WALKER. PT DENIES OTHER NEEDS AT THIS TIME.
--- NOTE | 2019-01-20 11:30 | NUR ---
MD TO BEDSIDE. PLAN TO ADVANCE TO REGULAR DIET. PT DENIES OTHER NEEDS AT THIS TIME.
--- NOTE | 2019-01-20 12:56 | NUR ---
MED REC COMPLETE
--- NOTE | 2019-01-20 14:17 | NUR ---
I HAVE KNOWN FR SMITH MANY YEARS. WHEN I WAS IN LAST I SAW SOME ON HIS PARRISHENERS AND THEY ASKED ME TO VISIT HIM. HE IS IN GOOD SPIRITS AND DOING WELL. I KEPT VISIT SHORT SO HE CAN GET REST. I PRAYED WITH HIM BEFORE I LEFT, THAT HE HAVE A GOOD AND COMPLETE RECOVERY.
--- NOTE | 2019-01-20 17:48 | NUR ---
PT ON ROOM AIR, LUNG SOUNDS CLEAR. PT PAIN WELL CONTROLLED WITH TORADOL, TRANSITIONED TO ORAL TYLENOL. PT WITH MIDLINE INCISION DRESSING CDI. ILEOSTOMY TO RIGHT ABD, BRADEN DRAIN TO LLQ. PT AMBULATED IN JORDAN AND SAT IN CHAIR FOR MOST OF SHIFT. HAY CATH DRAINING QS. D5LR INFUSING AT 125ML/HR. ADVANCED TO REGULAR DIET TOLERATED.
--- NOTE | 2019-01-20 19:25 | NUR ---
SHIFT REPORT RECEIVED FROM KRISTY DÍAZ AT BEDSIDE. PT RESTING IN BED, APPEARS COMFORTABLE. NO DISTRESS NOTED. IV FLUIDS INFUSING, IV SITE WNL. MEPILEX TO ABDOMEN, SITE C/D/I. OLD YELLOW-KIRK SHADOWING TO BRADEN GAUZE SITE. BRADEN CONTENTS SEROSANGUINEOUS IN COLOR. OSTOMY SITE WNL, LIQUID OUTPUT BROWN IN COLOR. NO NEEDS AT THIS TIME. CALL LIGHT IN REACH.
--- NOTE | 2019-01-20 20:38 | NUR ---
VITALS AND I&OS DONE AND CHARTED. TEA GIVEN PER PT REQUEST. BEDSIDE TABLE AND CALL LIGHT IN REACH.
--- NOTE | 2019-01-21 00:57 | NUR ---
NEW BAG OF IV FLUIDS INFUSING AT 125 MLS/HR, IV SITE WNL. HAY CATHETER EMPTIED, 800 MLS OUTPUT RECORDED. PT DENIES PAIN OR ADDITIONAL NEEDS. CALL LIGHT IN REACH.
--- NOTE | 2019-01-21 03:19 | NUR ---
PT RESTING IN BED, EYES CLOSED. RR WNL, PT APPEARS COMFORTABLE, NO DISTRESS NOTED. IV FLUIDS INFUSING PER MD ORDERS, IV SITE WNL. CALL LIGHT IN REACH.
--- NOTE | 2019-01-21 04:52 | NUR ---
ASSESSMENT COMPLETE, NO NEW CHANGES OR CONCERNS. VSS, PT ON RA. AFEBRILE. IV FLUIDS INFUSING PER MD ORDERS, IV SITE WNL. PT A/OX4. DENIES PAIN. NO CHANGES REGARDING ABDOMINAL DRESSINGS, SEE ASSESSMENT FOR DETAILS. CALL LIGHT IN REACH.
--- NOTE | 2019-01-21 06:00 | NUR ---
PT CALLED REQUESTING TYLENOL FOR 4/10 PAIN. HE STATES HE DID NOT TAKE A WALK LAST NIGHT. OFFERED TO WALK WITH PT AND HE AGREED. HE AMBLATED A LAP AROUND THE UNIT SBA WITH FWW. HE IS BACK IN THE ROOM NOW WITH THE ASSISTANCE OF CHRISS DICK.
--- NOTE | 2019-01-21 07:36 | NUR ---
RECIEVED BEDSIDE REPORT FROM CHESTER RICK. PT IS AWAKE AND ALERT. DRESSINGS ARE CLEAN/DRY/INTACT. PT IS SLOWING TRANSITIONING TO SOLID FOOD, TOLERATING WELL.
--- NOTE | 2019-01-21 11:57 | NUR ---
PT VOIDING AFTER HAY REMOVAL, TOTAL OF 300ML SINCE HAY REMOVED. PT IS OUT OF THE SHOWER.
--- NOTE | 2019-01-21 15:48 | NUR ---
PT UP AMBULATING WITH RN, 2 LAPS AROUND THE UNIT. PT TOLERATED WELL, MENTIONED THE SKIN OF HIS ABD WAS TENDER. PT WANTED BACK IN BED.
--- NOTE | 2019-01-21 18:23 | NUR ---
DRESSINGS DC, EXCEPT ONE GUAZE ON LEFT SIDE, HAY DC. VOIDING WELL. UP AMBULATING IN HALLS. MULTIPLE VISITORS AND PHONE CALLS, ASK PRIOR TO ALLOWING VISITORS.
--- NOTE | 2019-01-21 19:07 | NUR ---
RECEIVED REPORT FROM CHESTER FLAHERTY. pt RESTING IN BED. RATED PAIN 2/10. NO REQUESTS AT THIS TIME. WHITEBOARD UPDATED. CALL LIGHT WITHIN REACH.
--- NOTE | 2019-01-21 20:40 | NUR ---
ASSESSMENT DONE. pt REPORTED 4/10 PAIN, PRN MED GIVEN WITH SCHEDULED MEDS (SEE JUN). MIDLINE INCISION CDI WITH STERISTRIPS. LEFT WOUND COVERED, CDI. OSTOMY BAG EMPTIED. DRAIN EMPTIED, SEROSANGUINOUS OUTPUT. MD ASSESSED pt, AFTER MD LEFT ROOM pt REPORTED HE WAS "UNSURE IF I'M READY TO GO HOME, I HOPE IT IS THURSDAY AND NOT THURSDAY" DISCUSSED RECOVERY. pt REPORTED FEELING "DISCOMFORT" WHEN MOVING SUGGESTED WAYS TO MODIFY PAIN MANAGMENT. pt AGREABLE TO SUGGESTIONS. UP TO AMBULATE IN [place] WITH OFFICE RN, 1PA FWW.
--- NOTE | 2019-01-21 21:17 | NUR ---
SBA AMBULATED AROUND THE NURSE'S STATION X3.
--- NOTE | 2019-01-21 21:37 | OR ---
[facility] [address], [place] [address] Signed DATE OF OPERATION: 01/18/2019 SURGEON: Suad Pina MD PREOPERATIVE DIAGNOSES: 1. Low rectal carcinoma. 2. History of total colonic obstruction with diverting loop sigmoid colostomy. 3. Status post neoadjuvant chemoradiation therapy completed on November 13, 2018. POSTOPERATIVE DIAGNOSES: 1. Low rectal carcinoma. 2. History of total colonic obstruction with diverting loop sigmoid colostomy. 3. Status post neoadjuvant chemoradiation therapy completed on November 13, 2018. 4. Marked radiation related perirectal fibrosis. PROCEDURES PERFORMED: 1. Rigid proctoscopy. 2. Very low anterior resection with side-to-end coloproctostomy (stapled 29 mm). 3. Mobilization of splenic flexure. 4. Removal of loop sigmoid colostomy with repair of abdominal wall defect. 5. Formation of protective diverting loop ileostomy, right abdominal area. 6. Flexible sigmoidoscopy (fiberoptic). 7. Omental pedicle graft to pelvis. RETAIL TEAM LEADER: Zeke Pina MD. ANESTHESIA: 1. General endotracheal; Ivon AguilaersonCONSTANTIN. 2. Tap block postoperatively. 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 Digital rectal examination revealed a low rectal mass, complete obstruction, and colonoscope was unable to pass through the obstructed area. He underwent on September 05, 2018, a diverting loop sigmoid colostomy for decompression of his completely obstructed colon. CT scan showed no evidence of metastatic disease, but an obviously large mass in the rectum and rectosigmoid. There was no evidence of distant metastatic disease. Electronically Signed By: SUAD PINA MD 01/21/19 2137 PATIENT NAME: CLAUDIO PAZ OPERATIVE REPORT DATE OF : 43 REPORT #: [id number] PHYSICIAN: SUAD PINA MD PCP: NO PRIMARY CARE PHYSICIAN REPORT IS CONFIDENTIAL AND NOT TO BE RELEASED WITHOUT AUTHORIZATION [facility] [address], [place] [address] Signed Given the clinical findings, neoadjuvant chemoradiation therapy was initiated under the direction of Dr. Ferraro and Dr. Cross. His treatment concluded on November 13, 2018. He underwent repeat CT scan showing inflammatory changes in the rectosigmoid and perirectal areas as would be expected and had uncertain lesion in the dome of the liver. Attempts at colonoscopy per rectum still showed obstruction of the rectum. Colonoscopy via the colostomy itself both antegrade and retrograde showed no sign of other lesions, particularly no synchronous lesions in the more proximal colon. We waited 8 weeks between the end of his chemoradiation therapy for definitive resection based on current data showing advantage as regards survival with that interval of time anticipating definitive resection. The patient is now admitted to undergo a rectosigmoid resection with low coloproctostomy and probably a protective diverting loop ileostomy. The risks of bleeding, infection, anastomotic leak, failure to cure the problem, and other unforeseen complications were reviewed with him in great detail on several occasions. Of note, in the past two weeks, he has had a fair amount of urinary frequency, which was initially improved by antibiotics, but still with some urgency likely related to radiation therapy. He has had no pneumaturia. A repeat CT scan was recently performed showing thickening of the bladder wall as might be expected and the lesion on the dome of the liver was in fact found to be almost certainly hemangioma rather than a metastatic lesion. FINDINGS: A dense brick like mass was noted in the rectosigmoid and at the pelvic peritoneum. He has a narrow pelvis as well. Despite the odds, complete resection was undertaken and I believe most of the density was related to fibrosis from radiation rather than malignancy in any way. Low resection was required. All of the sigmoid, small amount of the descending, and all of the rectosigmoid and rectum down to the lowest portion of the rectum was resected. A side-to-end coloproctostomy was accomplished with a 29 mm stapling device in a side-to-end configuration. The left ureter was identified and unharmed. There was no direct penetration into the bladder, but there was marked fibrosis likely related to radiation therapy in the posterior wall of the bladder. Sigmoidoscopy to evaluate the anastomosis was accomplished and small air leak anteriorly was secured with silk sutures additionally. A drain was placed via the left lower quadrant into the deep pelvis. An omental pedicle graft was fashioned to the anastomosis also. The diverting loop colostomy was resected allowing for a low pelvic anastomosis after splenic flexure mobilization. Electronically Signed By: SUAD PINA MD 01/21/19 2134 PATIENT NAME: CLAUDIO PAZ OPERATIVE REPORT DATE OF : 43 REPORT #: [id number] PHYSICIAN: SUAD PINA MD PCP: NO PRIMARY CARE PHYSICIAN REPORT IS CONFIDENTIAL AND NOT TO BE RELEASED WITHOUT AUTHORIZATION [address] [address] Signed A diverting loop ileostomy was accomplished as well, which has good projection. A drain was placed in the pelvis as well. DESCRIPTION OF PROCEDURE: The patient was brought to the operating room, given a general endotracheal anesthetic. He underwent a complete bowel prep including oral antibiotics at home. Fleets enemas were used at home as well. After satisfactory general endotracheal anesthesia, a Hou catheter was placed. The legs were placed in Yellofin stirrups. Rigid proctoscopy was undertaken showing the lowest portion of the neoplasm to be about 6 to 8 cm from the anal verge. There was no retained fecal material in the rectum, thanks to the enemas that have been given. The legs were put into a neutral safe position and the abdomen was then prepared with Betadine based solution. A small gauze was placed over the loop colostomy site after reducing it as it had a somewhat proboscoid appearance. An Ioban dressing was then applied. A specialized drape was placed over the abdominal wall including that modified for pelvic access. An incision was made cephalad to the umbilicus and dissected through the subcutaneous tissue with electrocautery entering the abdomen without problem. A Bookwalter retractor was used for exposure. Intraabdominal inspection showed no sign of ascites or carcinomatosis. Small bowel appeared normal. A rock like mass was noted at the rectosigmoid with significant fibrotic changes in the anterior lateral pelvic sidewall areas. The small bowel was packed to the right side of the abdomen. The loop colostomy was well visualized emanating through the abdominal wall. The sigmoid was mobilized with electrocautery incising the white line of Toldt. Dissection was carried to the left anterolateral aspect. Firm fibrotic peritoneum was noted, no doubt related to radiation therapy. Dissection anteriorly showed a dense inflammatory connection to the posterior wall of the bladder, but no sign of direct penetration of tumor into the bladder. Meticulous care was made dissecting laterally. Ultimately, it was deemed most advisable to dissect from the posterior aspect. The distal descending colon was transected with a DAO stapling device and the sigmoid mesentery sequentially clamped and secured with 0 silk ties, dissecting down to the presacral space. With a total mesorectal excision technique, the mesorectum was freed from the sacral hollow. Dissection was notable for inflammatory changes related no doubt to the radiation therapy. This allowed for good purchase on the lateral side, and using electrocautery and blunt dissection, reasonable dissection plane could be obtained. Wide resection of the perirectal fat was undertaken to the limits of the pelvic sidewalls. He had a very deep and narrow pelvis indeed. Dissection was then undertaken more anteriorly, ultimately freeing the rectum from the posterior aspect of the bladder area. The left ureter was identified and unharmed. Further dissection was undertaken posteriorly and the tip of the coccyx could be palpated. The distal extent of the tumor could be ultimately determined. Fibrotic and the tevin rectal tissue with Electronically Signed By: SUAD PINA MD 01/21/19 2137 PATIENT NAME: CLAUDIO PAZ OPERATIVE REPORT DATE OF : 43 REPORT #: [id number] PHYSICIAN: SUAD PINA MD PCP: NO PRIMARY CARE PHYSICIAN REPORT IS CONFIDENTIAL AND NOT TO BE RELEASED WITHOUT AUTHORIZATION [address] [address] Signed fibrosis and fibrotic lymph nodes maintained in continuity with the specimen itself. Flexible sigmoidoscopy was undertaken to better demarcate the distal margin. It was emphasized this was a very low and deep dissection in relation to the rectum itself. Once the adequate distal margin was determined, a plan for transection was made. Using a TA 60 stapling device, the rectum was transected. There was blue dye related to injection in the past in the region of the tumor previously noted. The specimen was then explanted from the pelvis, opened on the back table, and found to have a generous margin distally at least 2 cm and possibly more. There was no untoward bleeding in the pelvis. Photographs were taken. The pelvis was packed with laparotomy pack and attention turned towards the loop colostomy. The loop colostomy was freed from the abdominal wall using electrocautery and the open ends ultimately secured with a stapling device and pulled back into the abdominal cavity. The distal segment of diverted colon was then transected with the DAO stapling device and the mesentery corresponded to it secured with 0 silk ties as well. Although there was the ability for the colon edges to stretch to the pelvic brim, more mobility was required. On that basis, using electrocautery and blunt dissection, the splenic flexure was freed allowing for completely tension-free anastomosis. Irrigation was undertaken. There was no sign of untoward bleeding or other problems. The left ureter was identified and found to be unharmed. The area of pelvic sidewall on the right side which had particular fibrosis was excised and sent as separate specimen, so as to ascertain this did not represent any sign of local infiltration of tumor. Plans were then made for anastomosis. The stapled end of the colon was excised and a 29 mm anvil was inserted into the colonic segment exiting the teniae libera. The open site for anvil access was transected with a DAO stapling device. A side-to-end coloproctostomy was deemed most appropriate. assistant director of public works manipulated the EEA stapling device into the rectum from below, noting that there was retained rectum, but not very much of it. The two portions of the stapling device were secured per manufacture's instructions and gently closed and transection undertaken. Extraction of the device allowed for inspection of the excised donuts. Proximal and distal segments both had intact donuts. Flexible sigmoidoscopy was then once again performed with occlusion of the distal left colon and installation of saline into the pelvis. There were few bubbles leaking in the anterior aspect of the anastomosis, but it was otherwise quite optimal. Electronically Signed By: SUAD PINA MD [id number] PATIENT NAME: CLAUDIO PAZ OPERATIVE REPORT DATE OF : 43 REPORT #: [id number] PHYSICIAN: SUAD PINA MD PCP: NO PRIMARY CARE PHYSICIAN REPORT IS CONFIDENTIAL AND NOT TO BE RELEASED WITHOUT AUTHORIZATION [facility] [address], [place] [address] Signed Interrupted 3-0 silk suture was used to bolster the anastomosis anteriorly. Irrigation was undertaken more fully. Gloves were changed several times in the course of these maneuvers to maintain a sterile abdominal cavity. Through a left lower quadrant incision, a 7 mm flat Chato drain was placed and manipulated into the pelvis. The omentum was mobilized on the left side and a long vascularized pedicle secured to the pelvic anastomosis with interrupted 3-0 Vicryl suture. The defect in the left abdominal wall was freed of its peritoneal lining and the muscular edges reapproximated with running #1 PDS suture. Peritoneum was then closed with running 0 PDS suture. On the external aspect, the muscular layers were reapproximated with interrupted 0 PDS suture. Subcutaneous tissue was later debrided of its peritoneal sac. Attention was then turned towards formation of the loop ileostomy. Approximately 15 to 20 cm from the terminal ilium proper as identified by the antimesenteric fat pad of Angela, a loop of ileum was designated as appropriate for a diverting loop protective ileostomy. An incision was made in the right lateral abdominal wall freeing a circular piece of dermis and skin. An opening was created in the right rectus abdominis in a cruciate fashion, and through the rectus abdominis muscle, 2 finger dilation undertaken. A [place] clamp was used to deliver the segment of ileum to the outside of the abdominal wall. The upper and lower ends of the ileum were well identified. The ileostomy was matured after a transverse incision of the ileum. A projecting nipple of the proximal segment of ileum was fashioned with good patency proximally and distally. Interrupted 3-0 Vicryl was used for that purpose. Inspection on the internal aspect showed no sign of torsion or other problem. Gloves were changed. Once again, irrigation was undertaken of the abdomen. Photographs were taken throughout the operation as well. The drain was manipulated into optimal position and plans were then made for closure. The midline fascia was reapproximated with running bidirectional #1 PDS suture. Subcutaneous tissue was irrigated and skin closed with running subcuticular 3-0 Vicryl. Steri-Strips were applied. An ostomy wafer was applied to the ileostomy site as well. The wound in the left abdomen with having had the takedown of the colostomy was packed with some gauze after single interrupted 3-0 Vicryl in deep dermis in the midportion. The patient was then given a TAP block by the cable reeler. Sponge, needle, and instrument counts reported as correct x3. Blood loss was estimated about 100 mL. The operation was prolonged, complicated, and difficult lasting from approximately 8 a.m. to 12:45 p.m. but was accomplished Electronically Signed By: SUAD PINA MD 01/21/19 2137 PATIENT NAME: CLAUDIO PAZ OPERATIVE REPORT DATE OF : 43 REPORT #: [id number] PHYSICIAN: SUAD PINA MD PCP: NO PRIMARY CARE PHYSICIAN REPORT IS CONFIDENTIAL AND NOT TO BE RELEASED WITHOUT AUTHORIZATION [facility] [address] [place], [place] [address] Signed safely. MD CLYDE Britt/ANJUM /[id number] cc: Pedro Carlos MD [facility] MD Griselda, FACS Copies: PEDRO CARLOS MD ~ Electronically Signed By: SUAD PINA MD 01/21/19 2137 PATIENT NAME: CLAUDIO PAZ SUAD OPERATIVE REPORT DATE OF : 43 REPORT #: [id number] PHYSICIAN: SUAD PINA MD PCP: NO PRIMARY CARE PHYSICIAN REPORT IS CONFIDENTIAL AND NOT TO BE RELEASED WITHOUT AUTHORIZATION
--- NOTE | 2019-01-21 23:22 | NUR ---
ROUNDED ON pt. RESTING WITH EYES CLOSED, SNORING. RESPIRATIONS REGULAR AND UNLABORED. CALL LIGHT WITHIN REACH.
--- NOTE | 2019-01-22 02:03 | NUR ---
ROUNDED ON pt. ALERT LAYING IN BED. REPORTED VOIDING MULTIPLE TIMES. EMPTIED OSTOMY BAG. REPORTED SMALL AMOUNT OF URINARY INCONTINENCE. DENIED PAIN AT THIS TIME. ASSESSMENT DONE. DRESSING CDI. CALL LIGHT WITHIN REACH.
--- NOTE | 2019-01-22 05:46 | NUR ---
pt RESTED MOST OF SHIFT. UP TO VOID INDEPENDENTLY. AMBULATED IN HALLS. PAIN CONTROLLED WITH PRN TYLENOL. MIDLINE INCISION CDI, STERISTRIPS. OSTOMY DRAINING BROWN STOOL, pt CARING FOR OSTOMY BAG. USES CALL LIGHT APPROPRIATELY.
--- NOTE | 2019-01-22 06:00 | NUR ---
WOKE pt FOR VITALS, I&O RECORDED. pt UP TO VOID. REQUESTED PAIN MEDS FOR 4/10 PAIN (SEE MAR). NO FURTHER REQUESTS AT THIS TIME. CALL LIGHT WITHIN REACH.
--- NOTE | 2019-01-22 07:35 | NUR ---
RECIEVED BEDSIDE REPORT FROM CHESTER GUERRA. PT IS SLEEPING SOUNDLY. RN REPORTED A GOOD NIGHT, UP SEVERAL TIMES TO VOID. ANXIOUS ABOUT POSSIBLE DC, BUT DISCUSSED OTHER MEDICATIONS WE HAVE TO REDUCE DISCOMFORT DURING MOVEMENT.
--- NOTE | 2019-01-22 10:55 | NUR ---
PATIENT IN CHAIR. FRESH WATER GIVEN. LINENS CHANGED. PATIENT UP TO BATHROOM EARLIER AND DID AM CARE AND SHAVED. PATIENT REFUSED SHOWER. CALL LIGHT IN REACH. NO FURTHER NEEDS AT THIS TIME.
--- NOTE | 2019-01-22 14:54 | NUR ---
PATIENT AMBULATED IN HALLWAY, IND. PATIENT NOW IN BED READING. CALL LIGHT IN REACH. NO FURTHER NEEDS AT THIS TIME.
--- NOTE | 2019-01-22 14:57 | NUR ---
RN WENT IN TO DO TEACHING ON OSTOMY AND WOUND CARE. PT STATED HE WAS COMFORTABLE WITH HIS OSTOMY CARE AND HAS SUPPLIES AT HOME. PT WAS IN BATHROOM INDEPENDENTLY EMPTYING HIS OSTOMY WHEN RN WENT IN THE ROOM. BOND CLERK TEACHING. DISCUSSED WASHING HANDS PRIOR TO STARTING, ONE PIECE OF GUAZE FOLDED OVER AND APPLYING TAPE TO THE GAUZE. PT VERBALIZED UNDERSTANDING OF INSTRUCTIONS.
--- NOTE | 2019-01-22 18:53 | NUR ---
PATIENT IND IN ROOM. FRESH WATER GIVEN. CALL LIGHT IN REACH. NO FURTHER NEEDS AT THIS TIME.
--- NOTE | 2019-01-22 19:45 | NUR ---
RECEIVED UPDATE ON pt FROM CHESTER DÍAZ. pt UP AMBULATING IN [place]. STATES "I'M DOING OKAY" NO REQUESTS AT THIS TIME.
--- NOTE | 2019-01-22 21:52 | NUR ---
V/S AND I&O TAKEN AND RECORDED.
--- NOTE | 2019-01-22 22:00 | NUR ---
ASSESSMENT DONE. VITALS AND I&O RECORDED. MIDLINE INCISION CDI, LEFT WOUND DRESSED, SLIGHT SHADOWING NOTED. OSTOMY BAG HAS SMALL AMOUNT OF BROWN DRAINAGE. pt REQUESTED PAIN MEDS FOR 3/10 PAIN, GIVEN WITH SCHEDULED MEDS (SEE MAR). NO FURTHER REQUESTS AT THIS TIME. CALL LIGHT WITHIN REACH.
--- NOTE | 2019-01-22 22:14 | NUR ---
DIE MAKER APPRENTICE ROUNDING NOTE. PT'S CELL PHONE PLUGGED INTO THE WOOD HEEL ATTACHER, FRESH WATER PROVIDED, MARTIN WATERED PER REQUEST. PT DENIES FURTHER NEEDS, QUESTIONS OR CONCERNS. CALL LIGHT IN REACH. WHITE BOARD UPDATED.
--- NOTE | 2019-01-23 00:05 | NUR ---
ROUNDED ON pt. AMBULATING TO TOILET. NO REQUESTS AT THIS TIME. CALL LIGHT WITHIN REACH.
--- NOTE | 2019-01-23 00:16 | NUR ---
CALL LIGHT ANSWERED. PATIENT EMPTIED ILEOSTOMY BAG AND VOIDED. THIS CHECK WRITER EMPTIED THE VOIDINGS, DUMPED THE OSTOMY CONTENTS AND RECORDED. NO OTHER NEEDS AT THIS TIME.
--- NOTE | 2019-01-23 02:13 | NUR ---
ROUNDED ON pt. RESTING WITH EYES CLOSED, RESPIRATIONS REGULAR AND UNLABORED. CALL LIGHT WITHIN REACH.
--- NOTE | 2019-01-23 04:24 | NUR ---
ROUNDED ON pt. RESTING IN BED, REPORTED HAVING JUST VOIDED, HAT EMPTIED. DENIES PAIN AT THIS TIME. CALL LIGHT WITHIN REACH.
--- NOTE | 2019-01-23 06:36 | NUR ---
ASSESSMENT DONE. VITALS AND I&O RECORDED. pt DENIED PAIN AT THIS TIME. OPTIMISTIC ABOUT GOING HOME TODAY. NO REQUESTS AT THIS TIME. CALL LIGHT WITHIN REACH.
--- NOTE | 2019-01-23 06:39 | NUR ---
pt RESTED WELL DURING SHIFT. DRESSING CDI. PAIN CONTROLLED WITH PRN X1, DENIED PAIN THIS AM. INDEPENDENT IN ROOM. IV SL. USES CALL LIGHT APPROPRIATELY.
--- NOTE | 2019-01-23 07:13 | NUR ---
RECIEVED BEDSIDE REPORT FROM CHESTER GUERRA. PT AWAKE AND PLEASANT. VERY HAPPY WITH HIS CARE. PAIN IS WELL CONTROLLED.
--- NOTE | 2019-01-23 08:52 | NUR ---
PT IS AWAKE AND ALERT. UP TO CHAIR. WILLING TO TRY TO CHANGE THE DRESSING WITH GUIDEANCE AFTER BREAKFAST.
--- NOTE | 2019-01-23 09:25 | NUR ---
PT ABLE TO DO DRESSING CHANGE INDEPENDENTLY WITH RN WATCHING. STATED HE FEELS COMFORTABLE CHANGING THE DRESSING AT HOME. HE STATES HE IS COMFORTABLE CHANGING HIS OSTOMY DEVICE.
--- NOTE | 2019-01-23 10:00 | NUR ---
PT IS WALKING INDEPENDENTLY IN THE HALLS.
[2019-01-23] MEDS ORDERED: FERROUS SULFAT325 MG PO (12:46)
[2019-01-23] MEDS ORDERED: IBUPROFEN600 MG PO (12:47)
[2019-01-23] MEDS ORDERED: VITAMIN C250 MG PO (12:48)
--- NOTE | 2019-01-23 14:30 | NUR ---
DISCHARGE TEACHING COMPLETE, IV REMOVED CATH ITACT. DISCUSSED FOLLOW UP, WHEN TO CALL THE DOCTOR, MEDICAITONS, AND ACTIVITY. PT HAD QUESTIONS ABOUT AMOUNT OF ACTIVITY, RN ANSWERED. VS TAKEN AND CHARTED.
--- NOTE | 2019-01-23 14:33 | NUR ---
[facility] HAS BEEN CALLED, THEY ARE ON THEIR WAY. WILL TAKE PT AND BELONGINGS OUT ONCE THE [facility] GETS HERE.
--- NOTE | 2019-01-24 08:34 | DS ---
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 A low rectal mass was noted on digital examination. He underwent a colonoscopy, but unable to pass the scope through the obstructed area. Biopsies confirmed adenocarcinoma. On September 05, 2018, he underwent a diverting loop sigmoid colostomy for decompression of his completely obstructed colon. CT scan showed no evidence of metastatic disease, but a large mid to low rectal tumor was noted. The patient underwent neoadjuvant chemotherapy and radiation therapy under the direction of Dr. Ro and Dr. Cross. His treatment concluded on November 13, 2018. A repeat CT scan showed inflammatory change of the rectosigmoid and perirectal area as would be expected and an uncertain lesion on the dome of the liver. Colonoscopy was undertaken, which could not pass from the rectal side. Colonoscopy undertaken through the colostomy itself both antegrade and retrograde was undertaken. There were no other findings of concern other than diverticular changes of the left colon. The patient waited the requisite 8 weeks from the completion of his chemoradiation therapy to now undergo definitive resection of the low rectal cancer anticipating primary anastomosis as well as diverting loop ileostomy. PERTINENT PHYSICAL EXAMINATION: GENERAL: A white man in no distress. Trachea midline. CHEST: Clear. HEART: Regular without murmur. ABDOMEN: Soft and nondistended. Functioning left-sided colostomy was noted. There is a proboscoid appearance with some prolapse, but no sign of peristomal hernia proper. EXTREMITIES: Showed no clubbing, cyanosis, or edema. HOSPITAL COURSE: On January 18, 2019, he underwent resection of the rectal tumor with an essentially coloanal anastomosis. They were a few centimeters of residual rectum cephalad to the dentate line, but it was a very low resection and anastomosis indeed. Marked fibrosis of the pericolonic tissue as well as the bladder itself was noted. Not mentioned previously was urinary urgency that he had in a few weeks leading up to operation, which was initially benefitted by antibiotics, but subsequently rather persistent despite no evidence of urinary tract infection. Electronically Signed By: SUAD PINA MD 01/24/19 0834 PATIENT NAME: CLAUDIO PAZ DISCHARGE SUMMARY DATE OF : 43 REPORT #: [id number] PHYSICIAN: SUAD PINA MD PCP: NO PRIMARY CARE PHYSICIAN REPORT IS CONFIDENTIAL AND NOT TO BE RELEASED WITHOUT AUTHORIZATION [facility] [address], [place] [address] Signed His operation was prolonged, complicated, and difficult and included not only a resection of the lesion in question, but also a stapled coloanal anastomosis and diverting loop ileostomy (protective) as well as splenic flexure mobilization, rigid proctoscopy at outset of procedure and flexible sigmoidoscopy during the operation otherwise. An omental pedicle flap was constructed also. He was maintained in an opiate free anesthetic approach with a TAP block placed by Ivon Pereyra CRNA at conclusion of the procedure. IV tylenol and toradol were also used with benefit and considered essential in his management. Although his operation was prolonged, complicated, and difficult, there was not much blood loss actually. A drain was placed in the pelvis and fully decompress the bladder. In hopes of an early recovery after surgery approach, he was begun on liquids the night of operation and encouraged to ambulate, which he did with assistance. He had a remarkable recovery and improvement. He had effluent from the ileostomy the following day, was advanced in his clear liquid diet. Pelvic drain showed serosanguineous fluid which cleared over the ensuing few days. He had no need for opiate medication preoperatively, intraoperatively or postoperatively to an extent. He was managed with intravenous Tylenol and Toradol as well as a TAP block. He was transitioned to oral medication, Tylenol and Motrin, which he tolerated well. His Hou catheter was removed after 48 hours given the low extent of dissection. He had good continence during daylight hours, but in the first two nights following Hou removal did have urinary incontinence at night, which was imperceptible to him overall. This resolved entirely as well. He had no further urinary urgency following operation either. By time of discharge, he is ambulating well. His pelvic drain has been removed. His Hou catheter has been removed. He has good bowel and bladder function. The ileostomy is functioning well and he knows how to use it. The resected colostomy site is being managed by a simple gauze dressing changed on a daily basis. He will be returning to his home. He is encouraged to ambulate on a daily basis. Nothing per rectum should be inserted including enemas and so forth without physician approval at this point. He will use his usual measures for ileostomy management as he is familiar with colostomy care. Especially emphasized to avoid contact with the ileostomy effluent to the skin, which is more irritating to the skin by far then his previous colostomy effluent. We anticipate to see him in about a month following operation. He is free to resume his duties as he sees fit in the near future. He will lift no more than 20 pounds for the Electronically Signed By: SUAD PINA MD 01/24/19 0834 PATIENT NAME: CLAUDIO PAZ DISCHARGE SUMMARY DATE OF : 43 REPORT #: [id number] PHYSICIAN: SUAD PINA MD PCP: NO PRIMARY CARE PHYSICIAN REPORT IS CONFIDENTIAL AND NOT TO BE RELEASED WITHOUT AUTHORIZATION [facility] [address], [place] [address] Signed next month. He is permitted to shower, bathe and keep Steri-Strips. It is anticipated he will have a clinical assessment of his situation in a month or so in my office after which a barium enema contrast study will be initiated most likely to assess for leakage. Takedown of the ileostomy will be considered in 6 weeks or more depending on how he recovers. If he has any problems, he is free to call me. He has my cell number. The patient was noted to have a hematocrit as low as 23.86 postoperatively (preoperatively 32), but scant blood loss at time of operation, needs one to believe his anemia is largely related to delusional causes, though he will be treated with iron sulfate for improvement of his hematocrit. Transfusion therapy was not initiated. DISCHARGE DIAGNOSES: 1. Low to mid rectal cancer with complete obstruction, status post diverting loop sigmoid colostomy. 2. Status post neoadjuvant chemoradiation therapy to rectal tumor. 3. Takedown of colostomy and definitive resection (low anterior resection with coloanal anastomosis), January 18, 2019 with protective loop ileostomy formation, splenic flexure mobilization and rigid and flexible sigmoidoscopy. 4. History of smoking, (resolved). MEDICATIONS: At discharge: 1. Iron sulfate 325 mg one p.o. b.i.d. with meals #60, refill zero. 2. Ibuprofen 600 mg p.o. q.6 hours as needed for pain, #30. 3. Vitamin C 250 mg tablets one p.o. b.i.d. #60, refill three. 4. He will continue with his probiotic as he desires two caps daily and a multivitamin one p.o. daily. MD CLYDE Britt/MODL /[id number] Electronically Signed By: SUAD PINA MD 01/24/19 0834 PATIENT NAME: CLAUDIO PAZ DISCHARGE SUMMARY DATE OF : 43 REPORT #: [id number] PHYSICIAN: SUAD PINA MD PCP: NO PRIMARY CARE PHYSICIAN REPORT IS CONFIDENTIAL AND NOT TO BE RELEASED WITHOUT AUTHORIZATION [facility] [address] [place] [id number] Signed cc: MD Pedro Terry MD Patrick G McBee, MD Dr. Christian Rigert Copies: KYLIE RO MD, MALCOLM MD MCBEE,GAGANDEEP Monroe MD ~ Electronically Signed By: SUAD PINA MD 01/24/19 0834 PATIENT NAME: CLAUDIO PAZ DISCHARGE SUMMARY DATE OF : 43 REPORT #: [id number] PHYSICIAN: SUAD PINA MD PCP: NO PRIMARY CARE PHYSICIAN REPORT IS CONFIDENTIAL AND NOT TO BE RELEASED WITHOUT AUTHORIZATION
== END 2019-01-23 14:40 | disposition home or self-care (01) | DRG 331 ==
LOC: MS 01-18 05:50 → DSVR 01-18 05:50 → MS 01-18 06:45
PROVIDERS: ADMIT Surgery
PROC: 0D1B0Z4 Bypass Ileum to Cutaneous, Open Approach (ICD-10-PCS; 2019-01-18)
PROC: 0DTN0ZZ Resection of Sigmoid Colon, Open Approach (ICD-10-PCS; 2019-01-18)
PROC: 0DBM0ZZ Excision of Descending Colon, Open Approach (ICD-10-PCS; 2019-01-18)
PROC: 0DQN0ZZ Repair Sigmoid Colon, Open Approach (ICD-10-PCS; 2019-01-18)
PROC: 3E0T3BZ Introduction of Anesthetic Agent into Peripheral Nerves and Plexi, Percutaneous Approach (ICD-10-PCS; 2019-01-18)
PROC: 3E0T33Z Introduction of Anti-inflammatory into Peripheral Nerves and Plexi, Percutaneous Approach (ICD-10-PCS; 2019-01-18)
PROC: 0DBP0ZZ Excision of Rectum, Open Approach (ICD-10-PCS; principal; 2019-01-18 06:45)
DX: C19 Malignant neoplasm of rectosigmoid junction (principal); G89.18 Other acute postprocedural pain; T66.XXXS Radiation sickness, unspecified, sequela; K62.89 Other specified diseases of anus and rectum; Y84.2 Radiological procedure and radiotherapy as the cause of abnormal reaction of the patient, or of later complication, without mention of misadventure at the time of the procedure; Z88.0 Allergy status to penicillin; Z87.891 Personal history of nicotine dependence
CPT/HCPCS: 00840; 36415; 64488; 76942; 80048; 80053; 81275; 81276; 83735; 85025; 88304; 88305; 88307; 88341; 88342; 94760; J0131; J0330; J0694; J1100; J1644; J1885; J2250; J2405; J2704; J2795; J3475; J7060; J7120; J7121

== ENCOUNTER 2019-02-28 12:58 | Inpatient (IN) | payer MEDICARE, OTHER ==
[~2019-02-28] VITALS: Ht 172.7 cm; Wt 82.5 kg
--- OUTSIDE RECORDS SUMMARY | ~2019-02-28 | XMS | Clinical Summary ---
Demographics + + + | Address | [address] | | | [place] [address] | + + + | Home Phone | | + + + | Preferred Language | Unknown | + + + | Marital Status | Single | + + + | Anglican Affiliation | Unknown | + + + | Race | Unknown | + + + | Ethnic Group | Unknown | + + + Author + + + | Author | [facility] [employer] (Historical as of | | | 12-11-18) | + + + | Organization | [facility] [employer] (Historical as of | | | 12-11-18) | + + + | Address | Unknown | + + + | Phone | Unavailable | + + + Support + + +---------+ + | Name | Relationship | Address | Phone | + + +---------+ + | Guero Lazo | ECON | Unknown | | + + +---------+ + Care Team Providers + +------+ + | Care Knuckler Name | Role | Phone | + [...]
--- OUTSIDE RECORDS SUMMARY | ~2019-02-28 | XMS | Clinical Summary ---
Demographics + + + | Address | [address] | | | [place] [address] | + + + | Home Phone | | + + + | Preferred Language | Unknown | + + + | Marital Status | Single | + + + | Anabaptism Affiliation | Unknown | + + + | Race | Unknown | + + + | Ethnic Group | Unknown | + + + Author + + + | Author | [facility] | | | and [place] | + + + | Organization | [facility] | | | and [place] | + + + | Address | Unknown | + + + | Phone | Unavailable | + + + Support + + +---------+ + | Name | Relationship | Address | Phone | + + +---------+ + | Sid Madrid | ECON | Unknown | | + + +---------+ + | Nanette | ECON | Unknown | | | Meg | | | | + + +---------+ + Care Team Providers + +------+ + | Care Ethologist Name | Role | Phone | + +------+ + | Unknown, Physician | PCP | | + +------+ + Allergies + + + + + + | Active Allergy | Reactions | Severity | Noted | Comments | | | | | Date | | + + + + + + | Amoxicillin | Rash | Low | 09/16/19 | | | | | | 19 | | + + + + + + | Penicillins | Rash | Low | 10/28/19 | | | | | | 19 | | + + + + + + Medications + + + +---------+------+------+-------+ | Medication | Sig | Dispensed | Refills | Star | End | Statu | | | | | | t | Date | s | | | | | | Date | | | + + + +---------+------+------+-------+ | ibuprofen | Take 600 mg by mouth | | 0 | | | Activ | | (ADVIL,MOTRIN) 600 | every 6 hours as | | | | | e | | MG tablet | needed for Pain. | | | | | | + + + +---------+------+------+-------+ | acetaminophen | Take 650 mg by mouth | | 0 | | | Activ | | (TYLENOL) 325 mg | every 6 hours as | | | | | e | | tablet | needed for Pain. | | | | | | + + + +---------+------+------+-------+ | Multiple | Take 1 tablet by | | 0 | | | Activ | | Vitamins-Minerals | mouth Daily. | | | | | e | | (MULTIVITAMIN ADULT | | | | | | | | PO) | | | | | | | + + + +---------+------+------+-------+ | Wheat Dextrin | Take 1 tablet by | | 0 | | | Activ | | (BENEFIBER PO) | mouth Daily. | | | | | e | + + + +---------+------+------+-------+ | Probiotic Product | Take 2 capsules by | | 0 | | | Activ | | (PROBIOTIC-10) CAPS | mouth Daily. | | | | | e | + + + +---------+------+------+-------+ | loperamide | Take 2 mg by mouth 4 | | 0 | | | Activ | | (IMODIUM) 2 mg | times daily as | | | | | e | | capsule | needed for Diarrhea. | | | | | | + + + +---------+------+------+-------+ Active Problems + + + | Problem | Noted Date | + + + | Rectal cancer | | + + + Encounters +--------+ + + + + | Date | Type | Specialty | Care Team | Description | +--------+ + + + + | 02/28/ | Telephone | Radiation Oncology | Roxanna Akhtar | Other | | 2019 | | | MD Dwain | | +--------+ + + + + from Last 3 Months Family History + + +------+ + | Medical History | Relation | Name | Comments | + + +------+ + | Lung cancer | Father | | | + + +------+ + | Cervical cancer | Maternal | | | | | Grandmoth | | | | | er | | | + + +------+ + | Breast cancer | Mother | | | + + +------+ + | Prostate cancer | Paternal | | | | | Grandfath | | | | | er | | | + + +------+ + + +------+ + + | Relation | Name | Status | Comments | + +------+ + + | Father | | | | + +------+ + + | Maternal Grandmother | | | | + +------+ + + | Mother | | | | + +------+ + + | Paternal Grandfather | | | | + +------+ + + Social History + +-------+ +--------+ + | Tobacco Use | Types | Packs/Day | Years | Date | | | | | Used | | + +-------+ +--------+ + | Former Smoker | | 1 | 36 | Quit: 2019 | + +-------+ +--------+ + + +---+---+---+ | Smokeless Tobacco: | | | | | Never Used | | | | + +---+---+---+ + + +---------+ + | Alcohol Use | Drinks/We | oz/Week | Comments | | | ek | | | + + +---------+ + | Yes | 14 | 8.4 | not currently drinking | | | Glasses | | | | | of wine | | | + + +---------+ + + + + | Sex Assigned at | Date Recorded | | | | + + + | Not on file | | + + + + + + + | Job Start Date | Occupation | Industry | + + + + | Not on file | Not on file | Not on file | + + + + + + + + | Travel History | Travel Start | Travel End | + + + + + + | No recent travel history available. | + + Last Filed Vital Signs + + + + | Vital Sign | Reading | Time Taken | + + + + | Blood Pressure | 146/77 | 11/04/2018 1443 PDT | + + + + | Pulse | 95 | 11/04/20181442 PDT | + + + + | Temperature | 35.7 C (96.3 F) | 11/04/20181441 PDT | + + + + | Respiratory Rate | 16 | 10/27/20181430 PDT | + + + + | Oxygen Saturation | 100% | 11/04/20181441 PDT | + + + + | Inhaled Oxygen | - | - | | Concentration | | | + + + + | Weight | 83 kg (182 lb 15.7 | 11/04/20181441 PDT | | | oz) | | + + + + | Height | 177 cm (5' 9.69") | 09/15/2018 125 PDT | + + + + | Body Mass Index | 26.49 | 09/15/2018 125 PDT | + + + + Plan of Treatment + + + + + | Health Maintenance | Due Date | Last Done | Comments | + + + + + | Hepatitis C | | | | | Screening | 5 | | | + + + + + | Vaccine: | | | | | Dtap/Tdap/Td (1 - | 4 | | | | Tdap) | | | | + + + + + | Colorectal Cancer | | | | | Screening | 5 | | | | (Colonoscopy) | | | | + + + + + | Vaccine: Zoster (1 | | | | | of 2) | 5 | | | + + + + + | Lung Cancer | | | | | Screening | 0 | | | + + + + + | Vaccine: | | | | | Pneumococcal 65+ | 0 | | | | High/Highest Risk (1 | | | | | of 2 - PCV13) | | | | + + + + + | Adult Annual | | | | | Wellness Visit | 9 | | | + + + + + | Vaccine: Influenza | | 03/16/2018, 01/25/2018, | | | (#1) | 9 | 04/12/2016, Additional history | | | | | exists | | + + + + + | AAA Screening | Completed | 09/05/2018 | | + + + + + Results Not on filefrom Last 3 Months Insurance + +--------+ +--------+ +---------+--------+ | Payer | Benefi | Subscriber | Effect | Phone | Address | Type | | | t Plan | ID | tony | | | | | | / | | Dates | | | | | | Group | | | | | | + +--------+ +--------+ +---------+--------+ | MEDICARE | MEDICA | [id number] | 09/26/19 | [phone] | | Medica | | | RE | | 10-Pre | 5 | | re | | | PART A | | sent | | | | | | AND B | | | | | | + +--------+ +--------+ +---------+--------+ | AETNA | AETNA | [id number] | 10/26/19 | | | Indemn | | | INDEMN | | 17-Pre | | | ity | | | ITY | | sent | | | | + +--------+ +--------+ +---------+--------+ + +--------+ +--------+ + + | Guarantor Name | Accoun | Relation to | Date | Phone | Billing Address | | | t Type | Patient | of | | | | | | | | | | + +--------+ +--------+ + + | Gregory Fitzpatrick | Person | Self [birth year] | [address] | | Edgardo | ollie/Nicolas | | 1946 | [phone] | [place] | | | [address] | | | [address] (Home) | [place] [address] | + +--------+ +--------+ + + Advance Directives Patient has advance care planning documents on file. For more information, please contact:[facility] [place] [address]
--- OUTSIDE RECORDS SUMMARY | ~2019-02-28 | XMS | Encounter Summary ---
Demographics + + + | Address | [address] | | | [place] [address] | + + + | Home Phone | | + + + | Preferred Language | Unknown | + + + | Marital Status | Single | + + + | Mosque Affiliation | Unknown | + + + | Race | Unknown | + + + | Ethnic Group | Unknown | + + + Author + + + | Author | [facility] | | | and [place] | + + + | Organization | [facility] | | | and [place] | + + + | Address | Unknown | + + + | Phone | Unavailable | + + + Support + + +---------+ + | Name | Relationship | Address | Phone | + + +---------+ + | Sid Madrid | ECON | Unknown | | + + +---------+ + | Nanette | JENNIFER | Unknown | | | Meg | | | | + + +---------+ + Care Team Providers + +------+ + | Care Gluing Machine Operator Name | Role | Phone | + +------+ + | Unknown, Physician | PCP | | + +------+ + Reason for Visit +--------+ + | Reason | Comments | +--------+ + | Other | | +--------+ + Encounter Details +--------+ + + + + | Date | Type | Department | Care Team | Description | +--------+ + + + + | 02/28/ | Telephone | [facility] | Roxanna Akhtar | Other | | 2019 | | [facility] | MD Dwain [address] | | | | | [facility] [address] | [place], [place] | | | | | [facility] | [address] | | | | | [place] [address] | | | | | | [phone] | | | +--------+ + + + + Social History + +-------+ +--------+ [...] recent travel history available. | + + documented as of this encounter Plan of Treatment Not on filedocumented as of this encounter Visit Diagnoses Not on filedocumented in this encounter"
[~2019-02-28 12:58] MED LIST changes: +FERROUS SULFAT325 MG PO; +VITAMIN C250 MG PO
--- NOTE | 2019-03-01 10:57 | NUR ---
PT IS ALERT,ORIENTED AND SEEMS VERY AT EASE WITH HIS SURGERY TODAY. HE STATED HE IS FEELING BETTER NOW THAN HE HAS IN MONTHS, AND IS LOOKING FORWARD TO THE POSITIVE RESULTS OF SURGERY TODAY. PT HAD FEW QUESTIONS AND WAS SUPPORTED BY FRIENDS. PT HAD PRAYER, WILL FOLLOW NEEDED
--- NOTE | 2019-03-01 15:15 | NUR ---
03/01/19 [address] PT ARRIVED TO PACU WITH DIRECT SERVICE PROFESSIONAL DOING JAW THRUST TO MAINTAIN AIRWAY, ORAL AIRWAY PLACED TO MAINTAIN AIRWAY FREE OF JAW THRUST. RESP EVEN AND UNLABORED. PT NONAROUSABLE TO PAINFUL STIMULI. PT ON 6L VIA MASK.
--- NOTE | 2019-03-01 15:33 | NUR ---
MED REC COMPLETE
--- NOTE | 2019-03-01 16:00 | NUR ---
PT ARRIVED TO FLOOR VIA STRETCHER. PT IS DROWSY BUT ALERT AND ORIENTED. PAIN REPORTED 5/10. OFIMEV ADMISNTERED. LR AT [address]DRESSING TO ABDOMEN WITH SOME LIGHT SHADOWING. ORDERS ACKNOWLEDGED. PT REPORTS SLIGHT NAUSEA, ZOFRAN GIVEN BEFORE TRANSFER TO FLOOR. CALL LIGHT IN REACH. WATER PROVIDED.
--- NOTE | 2019-03-01 17:00 | NUR ---
VITALS TAKEN AND STABLE. DENEIS PAIN/ NAUSEA. UP TO BATHROOM. VOIDED UNMEASURED. SBA OUT IN HALLS FOR 3 LAPS. TOLERATED WELL. UP TO CHAIR, CALL LIGHT IN REACH.
--- NOTE | 2019-03-01 18:00 | NUR ---
VITALS TAKEN AND STABLE. PT UP IN CHAIR.; BOWEL TONES HYPOACTIVE. DRESSING WITH SHADOWING. DENIES PAIN OR NAUSEA. CALL LIGTH IN REACH.
--- NOTE | 2019-03-01 18:44 | NUR ---
PT SITTING IN CHAIR. PT HAS NO NEEDS AT THIS TIME.
--- NOTE | 2019-03-01 19:06 | NUR ---
IN ROOM FOR REPORT, PT IS AWAKE IN CHAIR. HE DENIES NEEDS AT THIS TIME. CALL LIGHT IS WITHIN REACH.
--- NOTE | 2019-03-01 20:45 | NUR ---
IN ROOM TO ADMINISTER MEDICATIONS AND ASSESS PT. HE IS IN THE CHAIR AT THIS TIME AND WILL CALL WHEN HE IS READY TO GO FOR A WALK THEN TO BED. HE DENIES ANY PAIN OR NAUSEA AT THIS TIME. HE IS TOLERATING CLEAR LIQUIDS. SHADOWING NOTED ON DRESSING. BOWEL TONES ARE ACTIVE AND PT IS BELCHING BUT NO FLATUS AT THIS TIME. PT DENIES FURTHER NEEDS AND CALL LIGHT IS CLOSE.
--- NOTE | 2019-03-02 00:58 | NUR ---
PT'S DRESSING WAS SATURATED, CHANGED DRESSING AND PACKING WITH STERILE GAUZE WET TO DRY DRESSING. NONADHERENT PAD IN PLACE AND GAUAZE OVER INCASE THERE IS MORE DRAINAGE. COVERED WITH SILK TAPE. PT DENIES FURTHER NEEDS AT THIS TIME. CALL LIGHT IS CLOSE.
--- NOTE | 2019-03-02 02:15 | NUR ---
PT IS AWAKE IN BED, HE DENIES PAIN AT THIS TIME. SCDS ARE IN PLACE AND HE DENIES ANY NEEDS. CALL LIGHT IS CLOSE.
--- NOTE | 2019-03-02 04:28 | NUR ---
PT IS RESTING WITH EYES CLOSED, RR IS EVEN AND NONLABORED AND CPOX IS WNL. CALL LIGHT IS CLOSE AND IV IS INFUSING FINE.
--- NOTE | 2019-03-02 04:36 | NUR ---
PT DID WELL THROUGH THE NIGHT. NO COMPLAINTS OF PAIN D/T THE TAP BLOCK. NO N/V AND PT IS TOLERATING CLEARLIQUIDS. HE AMBULATES SBA. SCDS AND CPOX ON ALL NIGHT AND PT DID WELL ON RA. NO BM YET AND NO FLAUTUS. PT WALKED LAST NIGHT IS HALLS.
--- NOTE | 2019-03-02 04:55 | NUR ---
SBA PT TO RESTROOM AND BACK TO BED. ADMINISTERED OFIRMEV FOR 4/10 PAIN WHICH THE PT REPORTS SORENESS. VS AND I&O'S ENTERED AND PT DENIES FURTHER NEEDS. CALL LIGHT IS WITHIN REACH.
--- NOTE | 2019-03-02 07:19 | NUR ---
REPORT RECEIVED FROM [place]. PT RESTING WITH EYES CLOSED. PT ALLOWED TO REST. BARB STATES PT "DIDN'T SLEEP VERY MUCH." BED RAILS UP. CALL LIGHT WITHIN REACH.
--- NOTE | 2019-03-02 09:30 | NUR ---
MORNING ASSESSMENT AND MEDICATION DUE. PT RESTING IN BED. PT REPORTS HE "SLEPT OFF AND ON." O2 SATURATION 99-100% ON ROOM AIR. COPX DC'D. PTS BLOOD PRESSURE NOTED TO BE 99/55. WILL CONTINUE TO MONITOR. PT REPORTS DISCOMFORT OF 2-3/10, SEE MAR FOR MEDICATION GIVEN. DRESSING SHOWS MODERATE AMOUNT OF SHADOWING. DRESSING CHANGE DONE PER MD ORDER. PT DENIES NAUSEA. TOLERATING CLEAR LIQUID DIET. TEA PROVIDED PER PT REQUEST. LUNG SOUNDS CLEAR. NO ADDITIONAL REQUESTS OR COMPLAINTS AT THIS TIME. CALL LIGHT WITHIN REACH.
--- NOTE | 2019-03-02 10:51 | NUR ---
THIS RN TO ROOM TO CHECK ON PT. PT DENIES PAIN AND NAUSEA. PT UP TO AMBULATE IN JORDAN X 6 LAPS, INDEPENDANT WITH AMBULATION, STEADY ON FEET. NO ADDITIONAL REQUESTS OR COMPLAINTS AT THIS TIME.
--- NOTE | 2019-03-02 12:26 | NUR ---
NOON ASSESSMENT DUE. PT VISITING WITH CASE MANAGEMENT ABOUT OBTAINING A PRIMARY CARE DOCTOR. PT HESITANT BUT WILLING TO TRY AN APPOINTMENT WITH PRIMARY CARE. PT EXCITED ABOUT ADVANCEMENT TO FULL LIQUID DIET. ICE CREAM AND CREAM OF CHICKEN SOUP ORDERED PER PT REQUEST. PT REPORTS A GOOD APPITITE. ASSESSMENT DONE. DRESSING C/D/I, NO SHADOWING NOTED. PT REPORTS 05/06 PAIN STATING "IT'S PRACTICALY NOT THERE." PT DENIES NEED FOR PAIN MEDICATION. PT EATING LUNCH (ICE CREAM AND SOUP), NO ADDITIONAL REQUESTS OR COMPLAINTS AT THIS TIME, CALL LIGHT WITHIN REACH.
--- NOTE | 2019-03-02 12:57 | NUR ---
Met with Father Miguel. He feels he is doing well, walking in [place] and now beginning soft diet. Feels he can dc to home when discharged as he has several people who will assist him. Friends cook and provide his food, some cleans his house, he does his own laundry. He has never had a PCP. Called and scheduled an appt with PFM Dr. Jenniefr Irwin for Mar 30 at 2 pm, as this worked with Father Miguel's schedule. 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 Cautioned him to not over due. Denies need for any DME.
--- NOTE | 2019-03-02 14:14 | NUR ---
PT ALERT, ORIENTED AND SITTING IN CHAIR JUST FINISHING LUNCH. HE SAID IT WAS A GOOD LUNCH AND WAS FEELING WELL. HE DID ADMIT THAT HE DOES NEED TO GET UP AND WALK MORE TO GET HIS "GUT" WORKING MORE. GOOD, OPEN AND HONEST VISIT ABOUT LIFE AND HOW CHANGES IN OUR HEALTH CAN CHANGE OUR PERSPECTIVE ON OUR APPROACH TO LIFE AND NEHA. HAD PRAYER WITH PT, WILL FOLLOW NEEDED
--- NOTE | 2019-03-02 14:48 | NUR ---
PATIENT'S VITAL SIGNS WERE OBTAINED BY STUDENT RN AND RECORDED BY THIS MANAGER REVIEW
--- NOTE | 2019-03-02 15:01 | NUR ---
PATIENT USIGN THE BATHROOM. PATIENT BACKS TO CHAIR. I&O DONE. CALL LIGHT WITHIN REACH. NO OTHER NEEDS AT THIS TIME
--- NOTE | 2019-03-02 16:30 | NUR ---
AFTERNOON ASSESSMENT DUE. THIS RN TO BEDSIDE. PT UP TO CHAIR. PT REPORTS DIARRHEA X2 THAT APPEARED NORMAL BUT "VERY LOOSE." DEPENDS PROVIDED FOR PT. PT UP TO AMBULATE IN HALLS X5 LAPS. EDUCATION DONE WITH PT REGARDING DIET AND ELEMINATION. PT REQUESTS TO TRY REGULAR FOOD. PT ASSISTED WITH FOOD CHOICES. EDUCATION DONE REGARDING EATING SLOWING AND SLOW ADVANCEMENT OF FOODS. MASHED POTATOES, SOUP, AND COTTAGE CHEESE ORDERED FOR PT. ASSESSMENT DONE. DRESSING C/D/I. PT REPORTS / PAIN AT SURGICAL SITE. PT ALSO REPORTS CRAMPING IN RUQ. PT DENIES NEED FOR PAIN MEDICATION AT THIS TIME. CRACKES IN LUNG BASES NOTED. I.S. USED, PT REACHES 1750ML ON I.S. SBA UP TO RESTROOM. PT HAS AN ADDITIONAL LOOSE BM, NOMRAL IN APPERANCE. YOEL CARE DONE BY PT. DEPENDS IN PLACE. PT BACK TO CHAIR. NO ADDITIONAL REQUESTS OR COMPLAINTS AT THIS TIME. CALL LIGHT WITHIN REACH.
--- NOTE | 2019-03-02 17:53 | NUR ---
PT HERE POST TAKE DOWN OF LOOP ILEOSTOMY. DRESSING CHANGE DONE THIS SHIFT. PT LEARNING TO CHANGE DRESSING. DRESSING REMAINS C/D/I THROUGHOUT SHIFT. MINIMAL PAIN THIS SHIFT -07/04, PRN PAIN MEDICAITONS GIVEN. LOOSE BMS X3 NOTED THIS EVENING. PT ADVANCED TO REGULAR DIET. EDUCATION DONE REGARDING SLOW INCRASE OF FOODS. QUESTIONS ANSWERED FOR PT REGARDING ONCOLOGY PLAN OF CARE. PT VOIDING QUANITY SUFFIENT. PT AMBULATES INDEPENDANTLY AND IS FREQUENTLY UP IN HALLWAYS. PT USES CALL LIGHT APPROPRIATLY.
--- NOTE | 2019-03-02 18:02 | NUR ---
PT CALL LIGHT ON. PT REPORTS 8/10 "MUSCLE SPASM" PAIN IN LLL AREA OF RIB CAGE. IV TYLENOL GIVEN. LUNGS SOUNDS CLEAR. PT REPORTS THIS PAIN IS WORSE WITH MOVEMENT. PT BACK TO BED, SBA, RESTING ON BACK. IV TYLENOL GIVEN. PT UP TO AMBULATE IN HALLS WITH SBA FROM THIS RN X 6 LAPS. WARM PACK AND WARM BLANKETS PROVIDED. PT REPORTS AMBULATION AND TYLENOL "HELPED." PT REPORTS 0/10 PAIN "WHEN THE SPASMES AREN'T THERE." PT ENCOURAGED TO SLOW DOWN WITH EATING. 10% OF DINNER CONSUMED. CALLED AND UPDATED. PT READING BOOK UP IN CHAIR. NO ADDITIONAL REQUESTS OR COMPLAINTS AT THIS TIME. CALL LIGHT WITHIN REACH.
--- NOTE | 2019-03-02 18:53 | NUR ---
MD CALLED AND UPDATED. EDUCATION DONE WITH PT REGARDING DIET. DIET REGRESSED TO FULL LIQUIDS. PT VERBALIZES UNDERSTANDING OF EATING/DRINKING MORE SLOWLY BACKING OFF ON FOOD AT THIS TIME.
--- NOTE | 2019-03-02 19:00 | NUR ---
IN ROOM FOR REPORT, PT IS AWAKE IN THE CHAIR. HE REPORTS HIS PAIN IS UNDER CONTROL AT THIS TIME. HE DENIES NEEDS AND CALL LIGHT IS CLOSE.
--- NOTE | 2019-03-02 21:45 | NUR ---
IN ROOM TO ADMINISTER MEDICATIONS AND ASSESS PT. HE DENIES PAIN AT THIS TIME AND HIS DRESSING IS CDI. IV IS INFUSING WELL. PT DENIES N/V. HE WANTS TO WALK AGAIN LATER TONIGHT. HE DENIES FURTHER NEEDS AT THIS TIME AND CALL LIGHT IS CLOSE.
--- NOTE | 2019-03-02 23:22 | NUR ---
PT CALLED FOR TORADOL FOR PAIN. HE DENIES FURTHER NEEDS AT THIS TIME AND CALL LIGHT IS WITHIN REACH.
--- NOTE | 2019-03-03 00:56 | NUR ---
PT IS RESTING WITH EYES CLOSED, RR IS EVEN AND NONLABORED. CALL LIGHT IS WITHIN REACH.
--- NOTE | 2019-03-03 02:58 | NUR ---
PT IS RESTING WITH EYES CLOSED, RR IS EVEN AND NONLABORED. CALL LIGHT IS WITHIN REACH AND IV IS INFUSING FINE.
--- NOTE | 2019-03-03 05:11 | NUR ---
ASSISTED PT TO RESTROOM AND BACK TO BED. HE REPORTS 4 BMS THROUGH THE NIGHT AND STATES HE HAS MORE CONTROL OVER GETTING TO THE RESTROOM INTIME. HE DENIES PAIN AT THIS TIME. CALL LIGHT IS CLOSE AND PT DENIES FURTHER NEEDS.
--- NOTE | 2019-03-03 05:15 | NUR ---
PT AMBULATED IN THE J[place]AN SEVERAL LAPS LAST NIGHT. HE IS SBA/INDEPENDENT IN THE ROOM. LR IS INFUSING AT 85 AND URINE OUTPUT IS GOOD HE ALSO HAD 4 BMS WHICH ARE LESS WATERY. PAIN IS WELL CONTROLLED WITH TORADOL. HE HAS NO N/V AND IS TOLERATING FULL LIQUIDS. DRESSING CHANGES QD AND PRN, DRESSING IS CDI. PT HAS SCDS ON WHILE IN BED.
--- NOTE | 2019-03-03 07:10 | NUR ---
BEDSIDE HANDOFF REPORT RECEIVED FROM DISTRICT COURT BAILIFF RN. PT SLEEPING, LEFT UNDISTURBED.
--- NOTE | 2019-03-03 08:40 | NUR ---
PATIENT WAS RESTING, WATER WAS FULL AND CALL LIGHT IN REACH.
--- NOTE | 2019-03-03 09:45 | NUR ---
PT RESTING IN BED. PT ON ROOM AIR, LUNG SOUNDS CLEAR, DENIES SOB. PT SLOWLY EATING FULL LIQUID DIET, DENIES NAUSEA, BOWEL TONES ACTIVE. PT WITHOUT EDEMA, CMS INTACT. PT STATES HE FEELS A LOT OF GAS, ENCOURAGED WALKING IN JORDAN AFTER BREAKFAST. PT CONCENR ABOUT INCONTINENCE OF BOWEL, WILL DISCUSS WITH MD. IV FLUIDS INFUSING LR AT 85 ML/HR. PT VOIDING QS. PLAN FOR DRESSING CHANGE AFTER BREAKFAST AND WALK, PT AGREEABLE TO ATTEMPT DRESSING CHANGE WITH ASSISTANCE NEEDED. PT DENIES OTHER NEEDS AT THIS TIME.
--- NOTE | 2019-03-03 10:24 | NUR ---
PT ENCOURAGED TO AMBULATE, AND MADE APPX 3 LAPS AROUND THE UNIT. PT TOLERATED ACTIVITY. PT DENIES PAIN WITH AMBULATION.
--- NOTE | 2019-03-03 11:18 | NUR ---
PT APPEARS TO BE VERY INVOLVED IN HIS RECOVERY. UP AMBULATING IN J[place] WITH STUDENT. JOINED THEM AND VISITED HE WALKED. FEELING WELL, MENTIONED THAT BOWELS WERE STARTING TO WORK, AND JOKED WE WALKED. WILL FOLLOW NEEDED
--- NOTE | 2019-03-03 11:59 | OR ---
[facility] [address] [place], [place] [address] Signed DATE OF OPERATION: 03/01/2019 SURGEON: Suad Pina MD PREOPERATIVE DIAGNOSIS: History of low rectal cancer, status post low anterior resection with protective loop ileostomy. POSTOPERATIVE DIAGNOSIS: History of low rectal cancer, status post low anterior resection with protective loop ileostomy. PROCEDURE: Takedown of loop ileostomy (segmental bowel resection with end-to-end ileo-ileostomy). ANESTHESIA: General endotracheal; Ivon Hafsa, TELETYPE ADJUSTER, and TAP block unilateral right side. 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 It is recalled he presented with an obstructing low to mid rectal cancer requiring a diverting loop colostomy for decompression, subsequent neoadjuvant chemoradiation therapy and ultimately a low anterior resection with a protective loop ileostomy takedown of the colostomy. He has been getting along well and is here for takedown of the ileostomy. A recent contrast study has shown no evidence of anastomotic leak and he is doing well clinically. He understands the risks of bleeding, infection, and of course failure of the anastomosis with takedown of the ileostomy and wishes to proceed. FINDINGS: The ileostomy was viable. Both segments were quite viable as well. The defunctionalized end (distal ileum) is slightly smaller than the active more proximal end, but an end-to-end anastomosis was deemed most optimal and was accomplished by hand-sewn technique. There were no complications. DESCRIPTION OF PROCEDURE: The patient was brought to the operating room, given a general endotracheal anesthetic. Preoperative bowel prep was primarily that of low-fiber diet. Preoperative antibiotic Electronically Signed By: SUAD PINA MD 03/03/19 1159 PATIENT NAME: CLAUDIO PAZ OPERATIVE REPORT DATE OF : 43 REPORT #: [id number] PHYSICIAN: SUAD PINA MD PCP: NO PRIMARY CARE PHYSICIAN REPORT IS CONFIDENTIAL AND NOT TO BE RELEASED WITHOUT AUTHORIZATION [facility] [address] [place], [place] [address] Signed cefoxitin had been given. A Hou catheter was placed. The abdomen was prepared with a Betadine based solution and draped sterilely. An incision was made around the edge of the ileostomy site on the right side of the abdomen. Dissection carried through the subcutaneous tissue with electrocautery. Ultimately, the fascial layer was encountered. With meticulous care, the attachments of the peritoneum to the loop ileostomy were freed, mobilizing well proximal and distal segments of the ileum in relation to the loop ileostomy itself. The mesentery was scored with electrocautery and secured with hemostats and the vascular pedicles divided. A DAO stapling device was used to transect both segments. The proximal and distal segments of the ileum were somewhat discordant in size. Further distal segment (toward the cecum) was withdrawn more fully. An additional segment of ilium excised which had less scarring and more in line with the diameter of the more proximal loop. An end-to-end ileoileostomy was then undertaken in two layer technique with interrupted 3-0 silk suture and interrupted 3-0 Vicryl suture for the inner layer. Mesenteric defect was secured with interrupted silk suture. The fascia was incised a bit to allow for reduction of the segment of bowel. The posterior sheath and its attendant peritoneum were reapproximated with running #1 PDS suture, the rectus muscle, which had been divided somewhat was secured for hemostasis and closed with interrupted PDS and subsequently the anterior rectus sheath and external oblique reapproximated with interrupted 0 PDS suture. Irrigation was undertaken more fully, and the subcutaneous tissue was then packed with gauze, anticipating delayed closure. A TAP block was then performed by the global compensation director on the right side of the abdomen only. The patient was ultimately extubated and transferred to recovery room in good condition having suffered no known complications. Blood loss was about 25 mL in total. Sponge, needle, instrument counts were correct x3. MD CLYDE Britt/MODL /[id number] cc: Roxanna Ro MD Electronically Signed By: SUAD PINA MD 03/03/19 1159 PATIENT NAME: CLAUDIO PAZ OPERATIVE REPORT DATE OF : 43 REPORT #: [id number] PHYSICIAN: SUAD PINA MD PCP: NO PRIMARY CARE PHYSICIAN REPORT IS CONFIDENTIAL AND NOT TO BE RELEASED WITHOUT AUTHORIZATION [address] [address] Signed Copies: KYLIE RO MD ~ Electronically Signed By: SUAD PINA MD 03/03/19 1159 PATIENT NAME: CLAUDIO PAZ OPERATIVE REPORT DATE OF : 43 REPORT #: [id number] PHYSICIAN: SUAD PINA MD PCP: NO PRIMARY CARE PHYSICIAN REPORT IS CONFIDENTIAL AND NOT TO BE RELEASED WITHOUT AUTHORIZATION
--- NOTE | 2019-03-03 12:15 | NUR ---
PT ATTEMPTED TO DO DRESSING CHANGE, PT WITH MODERATE BLEEDING FROM WOUND, SATURATED APPROXIMATELY 1 TUB OF FLUFF GAUZE. WOUND PACKED WITH SALINE SOAKED GAUZE ROLL, COVERED WITH GAUZE AND ABD, PRESSURE HELD. PT ASSISTED TO CHAIR AND INSTRUCTED TO CONTINUE TO HOLD PRESSURE. WILL CONTINUE TO MONITOR SITE. CALLED, MESSAGE LEFT.
--- NOTE | 2019-03-03 12:35 | PATH ---
[facility] [address] [place], [place] [address] Signed SPECIMEN(S): A SEGMENT OF SMALL BOWEL SPECIMEN(S): B ADDITIONAL SEGMENT OF ILEUM SPECIMEN SOURCE: A. SEGMENT OF SMALL BOWEL B. ADDITIONAL SEGMENT OF ILEUM CLINICAL HISTORY: Loop sigmoid colostomy, malignant tumor of rectosigmoid. FINAL PATHOLOGIC DIAGNOSIS: A. Small bowel segment, ostomy takedown: - Ostomy sites with chronic inflammation, reactive epithelial changes and suture granulomas. - Small bowel mucosa with mild chronic inflammation. - Viable surgical margins. - Negative for dysplasia or malignancy. B. Ileum, additional segment, excision: - Ileum with chronic inflammation and reactive epithelial changes. - Viable surgical margins. - Negative for dysplasia or malignancy. NAL:caw:[id number] MICROSCOPIC EXAMINATION: Histologic sections of all submitted blocks are examined by light microscopy. These findings, together with the gross examination, support the pathologic diagnosis. GROSS DESCRIPTION: Two specimens are received in two containers, labeled "MF." A. The specimen, labeled "MF, segment of small bowel," is received in formalin and consists of two side by side segments of small bowel with a stapled margin at one end. The side opposite of the stapled margin of each segment of small bowel is opened and bordered by a 0.3-0.6 cm wide portion of dark brown skin. The first segment measures 4.2 cm in length by 2.7 cm diameter and the second segment is 4.7 cm in length by 3.9 cm diameter. The mucosa of both segments is mclaughlin-pink with regular folds. No lesions or lymph nodes are grossly identified. Cassette summary: (A1) First dictated segment (A2) Second dictated segment PATIENT NAME: CLAUDIO PAZ PATHOLOGY DATE OF : 43 REPORT #: [id number] PHYSICIAN: SOBIA PATHOLOGY PCP: NO PRIMARY CARE PHYSICIAN REPORT IS CONFIDENTIAL AND NOT TO BE RELEASED WITHOUT AUTHORIZATION [facility] [address] [place], [place] [address] Signed (A3) Area between the two segments B. The specimen, labeled "MF, additional segment of ileum," is received in formalin and consists of a 3.6 cm in length by 3.4 cm circumference segment of small bowel that is open at both ends and includes a undesignated suture at one end. The serosa of the specimen is mclaughlin-pink and smooth and the mucosa is mclaughlin-pink with regular folds. No lesions or lymph nodes are grossly identified. Cassette summary: (B1) Sutured margin en face with risk control field representative sections of ileum (B2) Opposite margin of suture en face with additional sections of ileum. AM (under the direct supervision of a pathologist) After initial examination of the HE slides Dr. Demarco has requested additional sections of the bowel. (A4-A5) Margins of each segment, longer segment in A4. AM The Gross Description was prepared using a voice recognition system. The report was reviewed for accuracy; however, sound-alike word errors, addition and/or deletions may occur. If there is any question about this report, please contact Client Services. PERFORMING LABORATORY: The technical component was performed by [employer], [address] [place] [id number] (Optical Lens Manufacturing Tech: Jany Roy MD; CLIA# [id number]). [facility], [address] [address] (Optical Lens Manufacturing Tech: Gaudencio Null MD; CLIA# [id number]). Diagnostician: Paty Demarco MD Pathologist Electronically Signed 03/03/2019 Copies: ~ PATIENT NAME: CLAUDIO PAZ PATHOLOGY DATE OF : 43 REPORT #: [id number] PHYSICIAN: [facility] PATHOLOGY PCP: NO PRIMARY CARE PHYSICIAN REPORT IS CONFIDENTIAL AND NOT TO BE RELEASED WITHOUT AUTHORIZATION
--- NOTE | 2019-03-03 13:15 | NUR ---
PT CALLED FOR ASSISTANCE. PT STOOD UP AND HAD ADDITIONAL BLEEDING, CHESTER CANDELARIO ASSISTED PT TO BED AND HOLDING PRESSURE. ABD REMOVED, GAUZE SATURATED AND PT WITH BLEEDING FROM WOUND DRY GAUZE PLACED OVER WOUND AND DIRECT PRESSURE HELD TO SITE. [employer] DEVELOPER YVETTE INSTRUCTED TO CALL MD. GIRON.
--- NOTE | 2019-03-03 13:37 | NUR ---
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 He is walking long distance in the [place] with PT. Many people in and out of his room. States he received a call from [facility] asking for Nicole. Informed I will call and see if there was an error as they were planning to call him today. Called and spoke with office and she states they misdialed. She will call and confirm with Father Miguel his appt.
--- NOTE | 2019-03-03 13:45 | NUR ---
PT CONTINUES TO HAVE BLEEDING WITH DIRECT PRESSURE. 5LB SAND BAG PLACED OVER WOUND AND PRESSURE CONTINUE TO BE HELD.
--- NOTE | 2019-03-03 14:00 | NUR ---
BLEEDING FROM WOUND SLOWING DOWN, NOT SPREADING FROM GAUZE OR PILLOW CASE AROUND SAND BAG, PRESSURE CONTINUED TO BE HELD.
--- NOTE | 2019-03-03 14:23 | NUR ---
DR. PINA TO BEDSIDE TO EVALUATE WOUND AND BLEEDING.
--- NOTE | 2019-03-03 17:15 | NUR ---
PT SITTING IN CHAIR, VISITORS AT BEDSIDE. WOUND SITE ASSESS, DRESSSING CDI. PT DENIES OTHER NEEDS AT THIS TIME.
--- NOTE | 2019-03-03 18:11 | NUR ---
PT WITH BLEEDING FROM ILEOSTOMY TAKE DOWN WOUND FROM AFTER REMOVAL OF DRESSING, DR. PINA ASSESSED AND PLACED STITCH TO AREA WITH BLEEDING, INCREASED DRESSING CHANGE TO BID. PT WALKED IN THE JORDAN INDEPENDENTLY. SALINE LOCKED, TOLERATING REGULAR DIET, EATING SLOWLY.
--- NOTE | 2019-03-03 18:22 | NUR ---
Patient demonstrated dressing change. Light/moderate bleeding was noted after the wound packing was removed, and acknowledged by Dr. Villalobos. Wound was repacked by patient with assistance and dressed. Planning was made to recheck interventions to assess effectiveness of dressing.
--- NOTE | 2019-03-03 18:37 | NUR ---
Backtime 1300 CALL LIGHT ACTIVATED BY PATIENT. UPON ARRIVING IN ROOM, SIGNIFICANT BLEEDING WAS NOTED AND ADDRESSED. SATURATED DRESSING WAS REMOVED, AND PRESSURE APPLIED. PRESSURE HELD FOR APPROXIMATELY [address] PINA ARRIVED AT ABOUT 1430 TO ADDRESS THE BLEEDING. WOUND THEN REPACKED AND DRESSED.
--- NOTE | 2019-03-03 19:00 | NUR ---
RECEIVED REPORT FROM CHESTER DÍAZ. WATER PROVIDED. WHITEBOARD UPDATED. CALL LIGHT WITHIN REACH. NO REQUESTS AT THIS TIME.
--- NOTE | 2019-03-03 19:09 | NUR ---
STABLE VITAL SIGNS THROUGHOUT THE SHIFT. PT REPORTED MILD PAIN AT BEGINNING OF SHIFT, AND WAS GIVEN TORADOL ORDERED. PT STATED THAT MEDICATION WAS EFFECTIVE. DENIED PAIN THROUGHOUT THE REST OF THE SHIFT. THE PATIENT IS INDEPENDENT FOR ADL'S. TOLLERATES AMBULATION EVIDENCED BY WALKING 6 OR MORE LAPS TWICE DURING SHIFT; OXYGEN MEASURED AT 95% AT RETURN TO ROOM. AT APPX 1130 PT CHANGED DRESSING WITH ASSISTANCE; BLEEDING NOTED, REPACKED AND DRESSED WITH PLAN TO REASSESS FREQUENTLY. AT APPX. 1300 INCREASED BLEEDING NOTED AND ADDRESSED WITH CLEAN MATEUSZ AND CONSTANT PRESSURE FOR [address] PINA ARRIVED AT THAT TIME AND ADDRESSED THE BLEEDING, REPACKED AND DRESSED THE WOUND. AT END OF SHIFT DRESSINGS WERE CDI.
--- NOTE | 2019-03-03 22:27 | NUR ---
IN TO DO ASSESSMENT AND MEDS. pt UP TO VOID. DRESSING CHANGED, SEROSANGINUOUS DRAINAGE NOTED. pt DID DRESSING CHANGE WITH COACHING. ASSESSMENT DONE. MEDICATIONS GIVEN (SEE MAR). NO REQUESTS AT THIS TIME. CALL LIGHT WITHIN REACH.
--- NOTE | 2019-03-04 01:00 | NUR ---
CALL LIGHT ON. pt UP TO VOID AND BACK TO BED. DRESSING CDI. ASSESSMENT DONE. CALL LIGHT WITHIN REACH.
--- NOTE | 2019-03-04 03:24 | NUR ---
PT CALLED TO GET SCDS PLUGGED IN AFTER USING THE RESTROOM. FRESH WATER PROVIDED AND PT DENIES FURTHER NEEDS. CALL LIGHT IS CLOSE.
--- NOTE | 2019-03-04 05:06 | NUR ---
HELPED PT TAKE HIS SCD'S OFF SO HE CAN USE THE BATHROOM.
--- NOTE | 2019-03-04 05:19 | NUR ---
PT CALLED TO HAVE SCDS PLUGGED BACK IN AFTER USING THE RESTROOM. FRESH WATER AT BEDSIDE AND VS/I&O ENTERED. PT DENIES FURTHER NEEDS.
--- NOTE | 2019-03-04 05:19 | NUR ---
pt RESTED ON AND OFF. DRESSING ON WOUND CHANGED AT BEGINNING OF SHIFT BY pt. DRESSING CDI. pt INDEPENDENT IN ROOM. ONLY 1 BM AT BEGINNING OF SHIFT. IV SL. USES CALL LIGHT APPROPRIATELY.
--- NOTE | 2019-03-04 06:55 | NUR ---
HANDOFF REPORT RECEIVED FROM SANE NURSE RN MARI. PT SLEEPING, LEFT UNDISTURBED.
--- NOTE | 2019-03-04 08:00 | NUR ---
PATIENT RESTING IN BED. STUDENT RN IN ROOM. CALL LIGHT WITHIN REACH.
--- NOTE | 2019-03-04 08:25 | NUR ---
ENTERED PT ROOM FOR MORNING ASSESSMENT. PT APPARENTLY SLEEPING BUT ROUSED EASILY. VITALS STABLE. ALERT AND ORIENTED X4. ADMITTED CARE ASST BM, DESCRIBED MOSTLY GAS WITH LITTLE FECAL MATTER. DRESSING CDI. RATES PN 2/10, DOES NOT WANT PN MEDICATIONS AT THIS TIME.
[2019-03-04] MEDS ORDERED: IBUPROFEN600 MG PO (09:12)
[2019-03-04] MEDS ORDERED: TYLENOL325 MG PO (09:12)
--- NOTE | 2019-03-04 09:44 | NUR ---
PATIENT USING BATHROOM. PATIENT ASKS FOR SHAVING CREAM. SHAVING CREAM PROVIDED. CALL LIGHT WITHIN REACH. NO OTHER NEEDS AT THIS TIME
--- NOTE | 2019-03-04 09:56 | NUR ---
PATIENT AMBULATING IN THE HALLWAY
--- NOTE | 2019-03-04 10:24 | NUR ---
PT SITTING WHEN ENTERED ROOM. AMBULATING FREELY, AND MOVING AROUND THE ROOM AT EASE. FOCUSED ASSESSMENT: LUNG SOUNDS CLEAR, DRESSING CDI, DENIES TTP, ADMITS SORENESS AT INCISION SITE, RATES PN 05/06, WITHIN PATIENT EXPECTATIONS.
--- NOTE | 2019-03-04 10:44 | NUR ---
PATIENT SITTING UP IN CHAIR. STUDENT RN IN ROOM. VITAL SINGS DONE BY STUDENT RN. I&O DONE. CALL LIGHT WITHIN REACH. NO OTHER NEEDS AT THIS TIME
--- NOTE | 2019-03-04 11:20 | NUR ---
PT PERFORMED DRESSING CHANGE WITH MINIMAL ASSISTANCE. WOUND CARE EDUCATION PERFORMED, PT DEMONSTRATED UNDERSTANDING OF PROCEDURES EVIDENCE BY SUCCESSFUL DRESSING CHANGE.
--- NOTE | 2019-03-04 11:30 | NUR ---
PT COMPLETED DRESSING CHANGE. SEROSANGUINOUS DRAINAGED ON GAUZE PACKING, NO ACTIVE BLEEDING NOTED. PT ABLE TO PACK WOUND WITH SALINE SOAKED GAUZE WITHOUT DIFFICULTY. PT PROVIDED SUPPLIES FOR DRESSING CHANGES FOR A FEW DAYS AND WILL BE ABLE TO GET SUPPLIES FROM [employer].
--- NOTE | 2019-03-04 12:00 | NUR ---
DISCHARGE INSTRUCTIONS COMPLETED WITH PT. IV CATH RMEOVED. PT DRESSED AND BELONGINGS PACKED. PT GOING TO EAT LUNCH AND IS AWAITING RIDE TO ARRIVE AROUND 1300.
--- NOTE | 2019-03-04 12:38 | NUR ---
STAFF WORKING TO GET PT READY FOR DC TODAY. HE SAYS HE FEELS GREAT. GAVE ENCOURAGEMENT, WILL FOLLOW NEEDED
--- NOTE | 2019-03-05 21:39 | DS ---
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 As recalled, he presented in August 2018 with an obstructing low-to-mid rectal cancer, requiring an emergency diverting loop colostomy. He underwent neoadjuvant chemoradiation therapy following the diverting loop colostomy on the left side. 8 weeks following his cori adjuvant chemo radio therapy he underwent definitive very low anterior resection with side-to-end coloproctostomy and protective loop ileostomy. Recent gastrograffin enema confirms no sign of anastomotic leak. He is admitted at this time to undergo takedown of the ileostomy to include segmental small bowel resection with anastomosis. PERTINENT PHYSICAL EXAMINATION: GENERAL: A well-developed, well-nourished white man, in no acute distress. HEENT: Trachea midline. CHEST: Clear. HEART: Regular without murmur. ABDOMEN: Soft and midline incision is well healed. A healed left-sided prior colostomy site is noted. He has a viable well-positioned right sided loop ileostomy. HOSPITAL COURSE: His bowel prep prior to operation was simply a low-fiber diet and preoperative IV antibiotics, cefoxitin. He underwent operation without problem, which included coring out of the loop portion of the ileostomy site, withdrawal of proximal and distal ends of ileum, and the end-to-end ileoileostomy. Closure of mesenteric defect was accomplished as well. Fascial closure was with PDS suture. Rather than close the subcutaneous space and skin which would hazard a wound infection, gauze packing was used anticipating secondary healing. Postoperatively, he was begun immediately on clear liquid diet. A right sided unilateral TAP block was provided by the electrical integrator at the conclusion of operation. He required no opioid Electronically Signed By: SUAD PINA MD 03/05/19 2139 PATIENT NAME: CLAUDIO PAZ DISCHARGE SUMMARY DATE OF : 43 REPORT #: [id number] PHYSICIAN: SUAD PINA MD PCP: NO PRIMARY CARE PHYSICIAN REPORT IS CONFIDENTIAL AND NOT TO BE RELEASED WITHOUT AUTHORIZATION [facility] [address] [place] [id number] Signed medication postoperatively, using only IV Tylenol, IV Toradol, and ultimately oral Motrin and oral Tylenol. He was advanced in his diet as tolerated, ultimately tolerating a regular solid diet. He has had multiple bowel movements. Initially, he had some incontinence issues, likely related to unused rectum since August, but has regained good continence since that time. The day prior to discharge when doing a gauze dressing exchange, he did have bleeding of the subcutaneous area, which required a single suture of 2-0 Vicryl for hemostatic control. He had no further bleeding problems. His dressing regimen was changed to b.i.d. I believe the etiology of the bleeding was disruption of an eschar on a subcutaneous bleeding site. There was no further bleeding at this point. FOLLOWUP PLANS: He will return to see me in approximately a month. He will do b.i.d. dressing changes with gauze in the meantime. He is encouraged to shower daily and to allow the water to go inside the subcutaneous area and keep the area clean. He is to lift no more than 20 pounds for the next 4 weeks. If he has problems, of course, he will call me. He has my cell phone number. MD CLYDE Britt/MODL /[id number] cc: Kylie Godfrey MD Copies: KYLIE GODFREY DMD ~ Electronically Signed By: SUAD PINA MD 03/05/19 2139 PATIENT NAME: CLAUDIO PAZ DISCHARGE SUMMARY DATE OF : 43 REPORT #: [id number] PHYSICIAN: SUAD PINA MD PCP: NO PRIMARY CARE PHYSICIAN REPORT IS CONFIDENTIAL AND NOT TO BE RELEASED WITHOUT AUTHORIZATION
== END 2019-03-04 13:05 | disposition home or self-care (01) | DRG 331 ==
LOC: MS 03-01 09:00
PROVIDERS: ADMIT Surgery
PROC: 0DBB0ZZ Excision of Ileum, Open Approach (ICD-10-PCS; principal; 2019-03-01 10:15)
DX: Z43.2 Encounter for attention to ileostomy (principal); Z85.048 Personal history of other malignant neoplasm of rectum, rectosigmoid junction, and anus; Z88.0 Allergy status to penicillin; Z79.899 Other long term (current) drug therapy; Z87.891 Personal history of nicotine dependence
CPT/HCPCS: 00790; 36415; 80048; 85025; 87493; 88304; 88307; 94760; 94762; A9270; J0131; J0330; J0694; J1100; J1644; J1885; J2250; J2405; J2704; J2795; J3475; J7060; J7121

== ENCOUNTER 2019-06-09 13:26 | Inpatient (IN) | payer MEDICARE, OTHER ==
[~2019-06-09] VITALS: Ht 172.7 cm; Wt 84.6 kg
[~2019-06-09 13:26] MED LIST changes: +CAPECITABINE500 MG PO
--- NOTE | 2019-06-09 14:43 | NUR ---
73YR OLD MAN ADMITTED DIRECT ADMIT FOR DR PINA TO ROOM 107, PT WAS BROUGHT TO ROOM BY WC, HE IS ALERT, ORIENTED, ABLE TO STAND AND TRANSFER TO BED UNASSISTED, C/O FEELING WEAK AND TIRED, C/O NAUSEA AND DIARRHEA. ADMITTING DX OF DEHYDRATION. WRITTEN ORDERS NOTED. ORIENTED TO ROOM AND CALL LIGHT.
[2019-06-09] MEDS ORDERED: LOPERAMIDE2 MG PO (15:32)
--- NOTE | 2019-06-09 15:47 | NUR ---
MED REC COMPLETE
--- NOTE | 2019-06-09 18:24 | NUR ---
PT HAS COMPLETED 2 L BOLUS OF LR, D5LR INFUSING NOW AT 125HR, PT DENIES NAUSEA AND IS TOLERATING CLEAR LIQUID DIET WELL, MULTIPLE LOOSE WATERY YELLOW DIARRHEA. LOMOTIL GIVEN. DENIES PAIN. WORKING ON PAPERWORK FROM OFFICE NOW. CALL LIGHT IN EASY REACH. DECLINES FURTHER NEEDS.
--- NOTE | 2019-06-09 19:25 | NUR ---
PT RESTING, EYES CLOSED, RESP EVEN AND NON LABORED. PT HAS NO S/S OF DISTRESS AT THIS TIME. PERSONAL SUPPLIES AND CALL LIGHT WITHIN REACH.
--- NOTE | 2019-06-09 21:10 | NUR ---
PT CALLED FOR ME TO EMPTY HIS HAT OF URINE. I DID. PT NEEDS NOTHING ORE AT THIS TIME. CALL LIGHT IN REACH.
--- NOTE | 2019-06-09 22:05 | NUR ---
VITALS AND I&OS DONE AND CHARTED. FRESH WATER GIVEN. BEDSIDE TABLE AND CALL LIGHT IN REACH. PT NEEDS NOTHING MORE AT THIS TIME.
--- NOTE | 2019-06-10 00:35 | NUR ---
IMMODIUM 4MG PO ADMIN FOR COMPLAINTS OF DIARRHEA.
--- NOTE | 2019-06-10 04:54 | NUR ---
PT RESTING, EYES CLOSED, RESP EVEN AND NON LABORED. PERSONAL SUPPLIES AND CALL LIGHT WITHIN REACH.
--- NOTE | 2019-06-10 05:28 | NUR ---
VITALS AND I&OS DONE AND CHARTED. BEDSIDE TABLE AND CALL LIGHT IN REACH. PT NEEDS NOTHING MORE AT THIS TIME.
--- NOTE | 2019-06-10 07:24 | NUR ---
0655: Bedside report recieved from Trixie BRIGGS. Pt resting in his bed and he denies any change in his condition. Call pham within reach.
--- NOTE | 2019-06-10 07:45 | NUR ---
A message was left for Dr Villalobos to notify him of the pt's K+ level.
--- NOTE | 2019-06-10 08:02 | NUR ---
PT RESTING IN HIS BED AND HE STATES HE HAS SOME ABD CRAMPING AT A 3/10 WHICH HE DECLINES THE NEED OF ANYTHING FOR IT AT THIS TIME. HE STATES HE LAST BM WHICH WAS LOOSE WAS AT MIDNIGHT AND NONE SINCE. CALL RUTH WITHIN REACH, IV FLUID CONTINUES ORDERED.
--- NOTE | 2019-06-10 09:28 | NUR ---
PATIENT NOT TOLERATING IV MAG INFUSION, REPORTS LEFT ARM PAIN FROM WRIST TO SHOULDER. LEFT A/C IV SITE INTACT, DOES NOT APPEAR TO BE INFILTRATED. IV MAG STOPPED, IVF AT TKO. WILL REASSESS IN 10 MINUTES AND SEE IF ABLE TO RESTART IV MAG.
--- NOTE | 2019-06-10 10:20 | NUR ---
PT RESTING IN HIS BED READING WITH NO NEW COMPLAINTS. PT ORDERING SOME FOOD AT THIS TIME. HIS IV SITE APPEARS INTACT AND IS RECIEVING IV MAGNESIUM ORDERED. WILL CONTINUE TO MONITOR.
--- NOTE | 2019-06-10 10:46 | NUR ---
PATIENT SITTING UP IN BED. PATIENT WASHED FACE AND HANDS. PATIENT STATED THAT HE WOULD LIKE TO BRUSH HIS TEETH NEXT TIME HE GETS UP TO THE BATHROOM. FRESH WATER GIVEN. CALL BUTTON IN REACH. NO OTHER NEEDS AT THIS TIME.
--- NOTE | 2019-06-10 11:56 | NUR ---
PT FEELS LIKE HE IS IMPROVING. HE IS ALERT AND ORIENTED AND FEELS LIKE HIS DIAHREA IS STOPPED FOR NOW. TRYING TO ORDER LUNCH, GAVE BLESSING AND PT REQUESTED PRAYER. WILL FOLLOW NEEDED
--- NOTE | 2019-06-10 12:06 | NUR ---
Pt ate a small amount of jello for a late breakfast which he states he tolerated well. Pt ordering lunch at this time.
--- NOTE | 2019-06-10 12:41 | NUR ---
SPOKE WITH PATIENT IN ROOM. PATIENT DENIES NEEDS TO GO HOME SAFELY. IS NOT SURE IF HE IS BEING DISCHARGED TODAY, BUT THINKS IT MIGHT BE TOMORROW. HE WILL LET DR PINA OR STAFF KNOW IF HE THINKS OF ANYTHING NEEDED TO BE HOME SAFELY.
--- NOTE | 2019-06-10 13:34 | NUR ---
PT RESTING IN HIS CHAIR EATING HIS LUNCH. HE DENIES ANY PAIN OR NAUSEA AT THIS TIME. k+ CONTINUES INFUSING ORDERED, SEE EMAR. PT'S ONLY COMPALINT IS THAT HE HAS HICUPS. SEE ASSESSMENT.
--- NOTE | 2019-06-10 13:44 | NUR ---
DR PINA TO THE BEDSIDE SPEAKING WITH THE PT AT THIS TIME.
--- NOTE | 2019-06-10 15:00 | NUR ---
PT STILL HAS SOME HICCUPS BUT STATES THEY ARE MUCH BETTER AFTER THE MEDICATION. WILL CONTINUE TO MONITOR.
--- NOTE | 2019-06-10 16:10 | NUR ---
Pt sleeping, iv remains cdi.
--- NOTE | 2019-06-10 17:11 | NUR ---
PT CONTINUES TO HAVE HICCUPS. DR PINA CALLED AND NOTIFIED, NEW ORDERS RECEIVED. SEE EMAR.
--- NOTE | 2019-06-10 17:22 | NUR ---
PT MEDICATED FOR HICCUPS, SEE EMAR.
--- NOTE | 2019-06-10 17:41 | NUR ---
PT HAD SOME NAUSEA AND VOMITING FOR 200 ML AND NOW STATES HE FEELS FINE. HE STATES IT CAME ON QUICK AND WENT AWAY QUICKLY. DR PINA CALLED AND NOTIFIED, NEW ORDERS RECEIVED, SEE EMAR.
--- NOTE | 2019-06-10 17:53 | NUR ---
PT STATES HE NO LONGER HAS ANY NAUSEA AND HIS HICCUPS ARE GONE.
--- NOTE | 2019-06-10 18:13 | NUR ---
PT HAD A SMALL SOFT SMEAR BM THIS SHIFT AND SOME EMESIS THIS EVENING FOR WHICH HE WAS TREATED. HE NOW STATES HIS NAUSEA IS GONE. HE DID HAVE HICCUPS WHICH HAVE ALSO STOPPED AT THIS TIME. VITAL SIGNS REMAINS STABLE AND HE DENIES ANY PAIN. HIS MAG AND K+ WERE REPLACED VIA IV TODAY. PT REMAINS ON D5LR AT 125. HE ATE VERY LITTLE TODAY AND IS RELUCTANT TO DUE SO AND DID NOT ORDER ANY DINNER TONIGHT. HE DID PUT IN AN ORDER FOR BREAKFAST.
--- NOTE | 2019-06-10 20:51 | NUR ---
Up to br, voided and had a large soft bm. No c/o pain. Independent in room. IVF infusing w/o problems. Goes back to sleep easily, fresh water at bedside
--- NOTE | 2019-06-10 21:15 | NUR ---
GREENHOUSE MANAGER ROUNDING NOTE. PT'S IV ALARMING, FIXED. PT RESTING IN BED, UP TO USE THE BATHROOM. PT INCONTINENT OF STOOL. PT PROVIED WITH WIPES. NEW ATTENDS PRESENT IN THE BATHROOM. PT DECLINES ASSISTANCE. DRAWSHEET CHANGED. PT BACK TO BED. DECLINES FURTHER NEEDS AT THIS TIME. DENIES QUESTIONS OR CONCERNS. CALL LIGHT IN REACH. WHITE BOARD UPDATED.
--- NOTE | 2019-06-11 00:28 | NUR ---
RESTING, EYES CLOSED, NO RESP DISTRESS, CALL LIGHT AND FLUIDS AT BEDSIDE
--- NOTE | 2019-06-11 01:59 | NUR ---
AWAKES EASILY, INDEPENDENT IN ROOM, TOLERATING CLEARS WELL, NO HICCUPS OR N/V THIS SHIFT. CALL LIGHT AT BEDSIDE, FRESH APPLEJUICE GIVEN, CALL LIGHT AT BEDSIDE
--- NOTE | 2019-06-11 03:20 | NUR ---
AWAKE, NO C/O PAIN. TOLERATING SMALL SIPS OF LIQUIDS, CALL LIGHT AT BEDSIDE, NO N/V
--- NOTE | 2019-06-11 05:17 | NUR ---
PT HAS SLEPT OFF AND ON THIS SHIFT. WAS MEDICATED X1 WITH IMODIUM 4MG PO PER ABD PAIN, LOOSE BM. TOLERATING SIPS OF FLUIDS. NO C/O N/V. INDEPENDENT IN ROMM. IVF INFUSING W/O PROBLEMS. CALL LIGHT AT BEDSIDE
--- NOTE | 2019-06-11 07:27 | NUR ---
Pt resting in his bed and he states he is "just resting". His call pham is within reach and he was instructed to call with any problems or concerns.
[2019-06-11] MEDS ORDERED: PROTONIX IV40 MG IV (09:01)
[2019-06-11] MEDS ORDERED: LOPERAMIDE2 MG PO (09:03)
[2019-06-11] MEDS ORDERED: POTASSIUM CHLO20 ME1 PO (09:04)
--- NOTE | 2019-06-11 09:09 | HP ---
[facility] [address] [place], [place] [address] Signed ADMISSION DATE: 06/09/2019 REASON FOR ADMISSION: Persistent diarrhea, dehydration, general malaise and fatigue, poor oral intake. HISTORY: A 73-year-old white man has undergone neoadjuvant chemoradiation therapy for a low rectal cancer. He had undergone definitive low anterior resection with coloproctostomy and ultimately later takedown of the loop ileostomy that was a protective measure for operation. He re-initiated postoperative chemotherapy under the direction of Dr. Ro. In the past week or so following chemotherapy, he has had intractable diarrhea poorly controlled with diphenoxylate and atropine, poor oral intake and generalized fatigue and being run down. He was seen by me yesterday in the Day Surgery Area, undergoing outpatient intravenous fluid administration as well as electrolyte repletion with magnesium and potassium. 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 I asked him to come back to the Day Surgery Area today and assess his progress. He continues to have problems, though he is improved somewhat with loperamide for his diarrhea problem. He has poor oral intake, clinical dehydration, and is admitted for further evaluation and care. PERTINENT PHYSICAL EXAMINATION: GENERAL: Somewhat weak-appearing white man. HEENT: His mucous membranes are dry. NECK: Trachea is midline. CHEST: Shows normal respiratory excursion. There is no tachypnea. HEART: Regular. ABDOMEN: Nondistended. He has no ascites. EXTREMITIES: Show no clubbing, cyanosis, or edema. LABORATORY DATA: Lab studies from yesterday, June 08, showed white count 3.7, hematocrit 39.3, platelets of 195,000. Band forms 24%. Electrolytes showed a sodium of 131, potassium of 3.3, chloride of 94, creatinine of 0.69, phosphorus 3.2, uric acid 2.7 (low), albumin 3.3, lipase 7, amylase 23, magnesium 1.8. ASSESSMENT: The patient has had significant dehydration related to persistent diarrhea in relation to side effects from chemotherapy. He was anticipated to have another go round of chemotherapy tomorrow, but he has conferred with his oncologist and that will be Electronically Signed By: SUAD PINA MD 06/11/19 0909 PATIENT NAME: CLAUDIO PAZ HISTORY AND PHYSICAL DATE OF : 43 REPORT #: [id number] PHYSICIAN: SUAD PINA MD PCP: NO PRIMARY CARE PHYSICIAN REPORT IS CONFIDENTIAL AND NOT TO BE RELEASED WITHOUT AUTHORIZATION [address] [address] Signed deferred at the present time. He is admitted at this time from additional fluid resuscitation and improvement of his overall medical status due to dehydration, persistent diarrhea and inability to tolerate oral intake. MD CLYDE Britt/MODL /[id number] cc: Kylie Ro MD Copies: KYLIE RO MD ~ Electronically Signed By: SUAD PINA MD 06/11/19 0909 PATIENT NAME: CLAUDIO PAZ HISTORY AND PHYSICAL DATE OF : 43 REPORT #: [id number] PHYSICIAN: SUAD PINA MD PCP: NO PRIMARY CARE PHYSICIAN REPORT IS CONFIDENTIAL AND NOT TO BE RELEASED WITHOUT AUTHORIZATION
--- NOTE | 2019-06-11 09:25 | NUR ---
NEW ORDERS RECIEVED, SEE EMAR.
--- NOTE | 2019-06-11 09:26 | NUR ---
PT RESTING IN HIS BED AND HE DENIES ANY PAIN AT THIS TIME. HE DID STATE HE HAD SOME NAUSEA BUT THAT IT WAS VERY SHORT LIVED AND WAS GONE BEFORE IT WAS TREATED. PT DENIES ANY OTHER PROBLEMS AT THIS TIME. SEE ASSESSMENT.
--- NOTE | 2019-06-11 10:30 | NUR ---
DC INSTRUCTIONS GIVEN TO THE PT WHICH HE STATES UNDERSTANDING. HE DENIES ANY NEW PROBLEMS AT THIS TIME. IV K+ INFUSING ORDERED.
== END 2019-06-11 12:08 | disposition home or self-care (01) | DRG 641 ==
LOC: MS 13:26
PROVIDERS: ADMIT Surgery
DX: E86.0 Dehydration (principal); K52.1 Toxic gastroenteritis and colitis; T45.1X5A Adverse effect of antineoplastic and immunosuppressive drugs, initial encounter; R63.0 Anorexia; R06.6 Hiccough; Z88.0 Allergy status to penicillin
CPT/HCPCS: 36415; 80048; 80053; 82247; 82465; 83615; 83735; 84100; 84134; 84478; 84550; 85025; C9113; J2765; J3475; J3480; J7060; J7121; Q0161

== ENCOUNTER 2019-10-31 06:35 | Day surgery (SDC) | payer MEDICARE, OTHER ==
[~2019-10-31] VITALS: Ht 172.7 cm; Wt 86.2 kg
[~2019-10-31 06:35] MED LIST changes: +LOPERAMIDE2 MG PO; +POTASSIUM CHLO20 ME1 PO; +PROTONIX IV40 MG IV; +PROTONIX20 MG PO
[2019-10-31] MEDS ORDERED: BENEFIBER1 EAC1 PO (06:56)
--- NOTE | 2019-10-31 08:20 | NUR ---
10/31/19 0820 Luisa Ahumada 0816 PT ARRIVED TO PACU ON 2L VIA NC, RESP EVEN AND UNLABORED. VSS. PT WAKES EASILY AND IS REORIENTED TO PACU. ABD SOFT AND PT ENCOURAGED TO PASS GAS. PT FALLS EASILY BACK TO SLEEP.
--- NOTE | 2019-10-31 09:46 | NUR ---
Visited with PT before his procedure. 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 I let him know that we care about our PTs and are praying for him and thanked him for choosing [facility]
--- NOTE | 2019-11-01 09:12 | OR ---
[facility] [address] [place], [place] [address] Signed DATE OF OPERATION: 10/31/2019 SURGEON: Suad Pina MD PREOPERATIVE DIAGNOSES: History of rectal cancer, status post low anterior resection with neoadjuvant chemotherapy and radiation therapy in 2019. POSTOPERATIVE DIAGNOSES: 1. Widely patent anastomosis. 2. Hyperplastic appearing mucosa distal to anastomosis (multiply biopsied). 3. Small polyp of transverse colon (excised). 4. Questionable polyp proximal to the anastomosis (excised). PROCEDURE: Total colonoscopy to cecum with cold morcellation polypectomy x3 and cold snare polypectomy x1. ANESTHESIA: Intravenous sedation, fentanyl 100 mcg and Versed 3 mg. 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 Carlos, subsequently Dr. Ro and Dr. oDnna Cross. He presented with colonic obstruction a year ago requiring diverting loop sigmoid colostomy and found to have a completely obstructing low-to-mid rectal cancer. He underwent neoadjuvant chemotherapy and radiation therapy and subsequent low anterior resection with protective loop ileostomy (December 2018). He subsequently underwent takedown of the loop ileostomy. He was intolerant of completion of his chemotherapeutic regimen postoperatively suffering rather severe dehydration and other issues and he has had fully recovered now and is doing quite well. He has no symptoms of bleeding diarrhea or constipation and overall, he is doing well. The plan for surveillance colonoscopy was anticipated in July; however due to the COVID-19 pandemic, deferral of his surveillance colonoscopy has been undertaken till now. He understands the risks of colonoscopy including, but not limited to bleeding, infection, and perforation and wished to proceed. FINDINGS: The prep was adequate. Complete colonoscopy was undertaken to the cecum. There were few scattered diverticula noted. The anastomosis was widely patent. There was diminutive polyp of the transverse colon, which was excised and what appeared to be Electronically Signed By: SUAD PINA MD 11/01/19 0912 PATIENT NAME: CLAUDIO PAZ OPERATIVE REPORT DATE OF : 43 REPORT #: [id number] PHYSICIAN: SUAD PINA MD PCP: KYLIE GODFREY MD REPORT IS CONFIDENTIAL AND NOT TO BE RELEASED WITHOUT AUTHORIZATION [facility] [address] [place], [place] [address] Signed possibly an adenomatous polyp just proximal to the anastomosis, which was excised with cold snare technique. There were several mucosal findings distal to the anastomosis, which were multiply excised and likely represent hyperplastic mucosa. There were no other findings of concern. DESCRIPTION OF PROCEDURE: The patient was brought to the endoscopy suite and placed in lateral decubitus position, given intravenous sedation to the point of slurred speech and nystagmus. Digital rectal examination was normal. Full cardiopulmonary monitoring was maintained. The Olympus video colonoscope was passed in the rectum and then inflated throughout the colon ultimately intubating the cecum. Irrigation was undertaken as necessary. The scope was withdrawn from that point. Examination showed no sign of abnormality until the mid transverse colon where multiple or a single endometrial polyp was noted, this was excised with cold morcellation technique. The scope was further withdrawn and just proximal to the anastomosis, which was widely patent, was an area that was suggestive of an adenomatous polyp. This was excised with cold snare technique. Bleeding was minimal. The scope was then withdrawn just distal to the stapled anastomosis as designated by anatomic features and staple and there was no evidence of anastomotic stricture in any way. Distal to the anastomosis where several small benign-appearing hyperplastic polypoid changes, these were multiply biopsied and passed for pathology. Further withdrawal of scope showed no other abnormality. Anastomosis was rather low, I would say 2-3 cm above the dentate line. CONCLUDING DIAGNOSIS: Possible hyperplastic polyps, distal anastomosis and possible adenomatous polyp proximal to it, diminutive polyp in transverse colon. PLAN: We will recommend a repeat colonoscopy in 1 year, sooner if any of his polyps proven to be adenomatous. MD CLYDE Britt/LLUVIAL /[id number] Electronically Signed By: SUAD PINA MD 11/01/19911 PATIENT NAME: CLAUDIO PAZ OPERATIVE REPORT DATE OF : 43 REPORT #: [id number] PHYSICIAN: SUAD PINA MD PCP: KYLIE GODFREY MD REPORT IS CONFIDENTIAL AND NOT TO BE RELEASED WITHOUT AUTHORIZATION [facility] [address] [place], [place] [address] Signed cc: MD Donna Terry MD Copies: KYLIE RO MD, MALCOLM MD ~ Electronically Signed By: SUAD PINA MD 11/01/19 0912 PATIENT NAME: JACKSONCLAUDIO SUAD OPERATIVE REPORT DATE OF : 43 REPORT #: [id number] PHYSICIAN: SUAD PINA MD PCP: KYLIE GODFREY MD REPORT IS CONFIDENTIAL AND NOT TO BE RELEASED WITHOUT AUTHORIZATION
--- NOTE | 2019-11-01 14:57 | PATH ---
[facility] [address] [place], [place] [address] Signed SPECIMEN(S): A TRANSVERSE COLON POLYP SPECIMEN(S): B COLON POLYP SPECIMEN(S): C COLON POLYP SPECIMEN SOURCE: A. TRANSVERSE COLON POLYP B. COLON POLYP C. COLON POLYP CLINICAL HISTORY: Pre: S/p takedown loop for rectal CA. Post: Possible polyp(s). MICROSCOPIC DESCRIPTION: Histologic sections of all submitted blocks are examined by light microscopy. These findings, together with the gross examination, support the pathologic diagnosis. FINAL PATHOLOGIC DIAGNOSIS: A. Mucosa, transverse colon, biopsy: - Features suggestive but not diagnostic of hyperplastic polyp (See comment). B. Mucosa, colon at 15 cm, biopsy: - Features suggestive but not diagnostic of hyperplastic polyp (See comment). C. Mucosa, colon, site not further specified, biopsy: - Features suggestive but not diagnostic of hyperplastic polyp (See comment). COMMENT: A, B and C: Multiple levels over three slides are examined. No adenomatous change or full thickness hyperplastic change is seen. RODGER:vlg:C NR GROSS DESCRIPTION: Three specimens are received in three containers, labeled "MF." A. The specimen, labeled "MF, transverse colon polyp," is received in formalin and consists of one mclaughlin soft tissue fragment that measures 0.2 cm in greatest dimension. The specimen is entirely submitted in cassette (A1). B. The specimen, labeled "MF, colon polyp at 15 cm," is received in formalin and consists of multiple mclaughlin soft tissue fragments that measure 1.3 x 1.2 x 0.2 cm aggregate. The specimen is entirely submitted in cassette (B1). C. The specimen, labeled "MF, colon polyp," is received in formalin and consists of five mclaughlin soft tissue fragments that measure 0.2 cm in greatest PATIENT NAME: CLAUDIO PAZ PATHOLOGY DATE OF : 43 REPORT #: [id number] PHYSICIAN: SOBIA PATHOLOGY PCP: KYLIE GODFREY MD REPORT IS CONFIDENTIAL AND NOT TO BE RELEASED WITHOUT AUTHORIZATION [facility] [address] [place], [place] [address] Signed dimension. The specimen is entirely submitted in cassette (C1). JS (under the direct supervision of a pathologist) The Gross Description was prepared using a voice recognition system. The report was reviewed for accuracy; however, sound-alike word errors, addition and/or deletions may occur. If there is any question about this report, please contact Client Services. PERFORMING LABORATORY: The technical component was performed by [facility], [address] [place] [id number] (Doctor Of Naturopathic Medicine: Jany Roy MD; CLIA# [id number]). Professional interpretation was performed by [facility], Former[facility], [address], [place] [address] (CLIA# [id number]). Diagnostician: Gaudencio Null MD Pathologist Electronically Signed 11/01/2019 Copies: ~ PATIENT NAME: CLAUDIO PAZ PATHOLOGY DATE OF : 43 REPORT #: [id number] PHYSICIAN: SOBIA SUMNER PCP: KYLIE GODFREY MD REPORT IS CONFIDENTIAL AND NOT TO BE RELEASED WITHOUT AUTHORIZATION
== END 2019-10-31 09:00 | disposition home or self-care (01) ==
LOC: DS 06:35 → OPS 06:35 → DS 06:45 → OPS 09:00
PROVIDERS: Surgery
PROC: 0DBE8ZX Excision of Large Intestine, Via Natural or Artificial Opening Endoscopic, Diagnostic (ICD-10-PCS; 2019-10-31)
PROC: 0DBL8ZZ Excision of Transverse Colon, Via Natural or Artificial Opening Endoscopic (ICD-10-PCS; principal; 2019-10-31 06:45)
DX: Z12.11 Encounter for screening for malignant neoplasm of colon (principal); K63.5 Polyp of colon; K57.30 Diverticulosis of large intestine without perforation or abscess without bleeding; Z88.0 Allergy status to penicillin; Z79.899 Other long term (current) drug therapy; Z87.891 Personal history of nicotine dependence; Z85.038 Personal history of other malignant neoplasm of large intestine
CPT/HCPCS: 99153; G0500; J2250; J3010; J7121

== ENCOUNTER 2020-11-08 08:26 | Day surgery (SDC) | payer MEDICARE, OTHER ==
[~2020-11-08] VITALS: Ht 172.7 cm; Wt 88.6 kg
--- NOTE | 2020-11-08 10:33 | NUR ---
11/08/20 1033 Federica Garza 1024- PT TO PACU IN LL POSITION. EYES OPEN, ASKING QUESTIONS ABOUT PROCEDURE. BREATHING EASY AND UNLABORED. SPO2 >90% ON 2 L O2 VIA NC. PT REPORTS ABDOMINAL DISCOMFORT. 07/04. PT ENCOURAGED TO PASS GAS.
--- NOTE | 2020-11-08 14:02 | NUR ---
PT WAS LATE-SAID IT WAS "ANOTHER"SCHEDULING MISHAP. GAVE ENCOURAGEMENT, STAFF ACCOMODATING. WILL FOLLOW
--- NOTE | 2020-11-12 18:29 | OR ---
[facility] [address] [place], [place] [address] Signed DATE OF OPERATION: 11/08/2020 SURGEON: Suad Pina MD PREOPERATIVE DIAGNOSES: History of obstructing rectal carcinoma, status post neoadjuvant radiation therapy and subsequent very low anterior resection with primary anastomosis. POSTOPERATIVE DIAGNOSIS: Normal colon to cecum, anastomosis widely patent. PROCEDURE: Total colonoscopy. ANESTHESIA: Intravenous sedation, fentanyl 100 mcg and Versed 4 mg. 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 Kylie Godfrey. He presented to me with an obstructing rectal cancer requiring diverting loop colostomy emergently, subsequent neoadjuvant radiation therapy and ultimately a very low anterior resection with diverting loop ileostomy (protective) with ultimate takedown of the ileostomy. The patient is currently symptom-free so far as can be told. He has no blood per rectum, diarrhea, or constipation. In general, he is getting along well. He is admitted for surveillance colonoscopy and understand the risks of bleeding, infection, perforation, and so on. FINDINGS: The prep was adequate. Complete colonoscopy was undertaken of the cecum. He did require a fair amount of irrigation as there were seeds and so forth noted in the course of his colonoscopy. There was no evidence of polyps or colitis. The anastomotic area was widely patent without sign of stricture or other abnormality. DESCRIPTION OF PROCEDURE: The patient was brought to the surgical endoscopy suite and placed in lateral decubitus position. He was given intravenous sedation to the point of slurred speech and nystagmus with full cardiopulmonary monitoring. Digital rectal examination was normal. An Olympus video colonoscope was passed in the rectum and manipulated throughout the colon ultimately intubating the cecum itself. The ileocecal valve and appendiceal Electronically Signed By: SUAD PINA MD 11/12/20 1829 PATIENT NAME: CLAUDIO PAZ OPERATIVE REPORT DATE OF : 43 REPORT #: [id number] PHYSICIAN: SUAD PINA MD PCP: KYLIE GODFREY MD REPORT IS CONFIDENTIAL AND NOT TO BE RELEASED WITHOUT AUTHORIZATION [facility] [address] [place], [place] [address] Signed orifice were normal. The scope was withdrawn from that point and examination throughout showed no sign of abnormality specifically no polyps or neoplasm, but did show few diverticula actually in the left colon. The anastomosis itself was widely patent. There is no sign of stricture. The rectum was normal. The scope was removed and the patient was taken to the recovery room in good condition. CONCLUDING DIAGNOSIS: Normal colon to cecum; diverticulosis of left colon, no evidence of anastomotic stricture. PLAN: Recommend a repeat colonoscopy in 1-2 years, sooner if symptoms should occur. MD CLYDE Britt/ANJUM /[id number] cc: MD Kylie Terry MD Copies: KYLIE RO MD, ROBERT D DMD ~ Electronically Signed By: SUAD PINA MD 11/12/20 1829 PATIENT NAME: CLAUDIO PAZ OPERATIVE REPORT DATE OF : 43 REPORT #: [id number] PHYSICIAN: SUAD PINA MD PCP: KYLIE GODFREY MD REPORT IS CONFIDENTIAL AND NOT TO BE RELEASED WITHOUT AUTHORIZATION
== END 2020-11-08 11:24 | disposition home or self-care (01) ==
LOC: OPS 08:26 → DS 08:38 → OPS 11:24 → DS 13:00 → OPS 13:00
PROVIDERS: ATTEND Surgery
PROC: 0DJD8ZZ Inspection of Lower Intestinal Tract, Via Natural or Artificial Opening Endoscopic (ICD-10-PCS; principal; 2020-11-08 07:30)
DX: Z12.11 Encounter for screening for malignant neoplasm of colon (principal); K57.30 Diverticulosis of large intestine without perforation or abscess without bleeding; Z85.038 Personal history of other malignant neoplasm of large intestine; Z92.3 Personal history of irradiation; Z93.3 Colostomy status; Z20.822 Contact with and (suspected) exposure to COVID-19; Z88.0 Allergy status to penicillin; Z87.891 Personal history of nicotine dependence
CPT/HCPCS: 99153; G0500; J2250; J7121

== ENCOUNTER 2022-01-23 10:43 | Day surgery (SDC) | payer MEDICARE, OTHER ==
[~2022-01-23] VITALS: Ht 172.7 cm; Wt 88.6 kg
[2022-01-23] MEDS ORDERED: [UNRECOGNIZED DRUG - OTHER] (11:19)
--- NOTE | 2022-01-23 13:20 | NUR ---
01/23/22 1320 Jina Stroud 1306-PATIENT ARRIVED TO PACU ON 3L NC RR EVEN LAYING LEFT LATERAL ABDOMEN SOFT. IVF INFUSING. PATIENT REACTIVE TO VERBAL STIMULI DENIES PAIN OR NAUSEA. PASSING GAS. 1320-DR. PINA AT BEDSIDE PATIENT DROWSY AWAKENS TO VERBAL STIMULI PLACED ON RA RR EVEN 96%
--- NOTE | 2022-01-24 17:32 | OR ---
[facility] [address] [place], [place] [address] Signed DATE OF OPERATION: 01/23/2022 SURGEON: Suad Pina MD PREOPERATIVE DIAGNOSIS: History of locally advanced rectal cancer, status post neoadjuvant chemotherapy and low anterior resection in 2019. POSTOPERATIVE DIAGNOSIS: Hyperplasia in region of ascending colon (biopsied; coloanal anastomosis widely patent). PROCEDURE: Total colonoscopy to cecum with biopsies. ANESTHESIA: Intravenous sedation fentanyl 100 mcg and Versed 4 mg. 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 He underwent a diverting loop ileostomy, decompression and subsequent neoadjuvant chemoradiation therapy. Subsequently, he underwent takedown of the colostomy, low anterior resection with coloanal anastomosis and diverting loop ileostomy. He ultimately underwent takedown of loop ileostomy and has been doing well ever since. He is admitted for surveillance colonoscopy, understand the risks of bleeding, infection, and perforation. FINDINGS: The prep was adequate. Complete colonoscopy was undertaken to the cecum. There was an area of mild hyperplasia of the proximal ascending colon which was biopsied. The remaining colon was essentially normal. There were few scattered diverticula. Anastomosis was widely patent. The anastomosis is affirmed to be rather low, certainly within 2 cm of the dentate line. PROCEDURE IN DETAIL: The patient was brought to the endoscopy suite and placed in lateral decubitus position given intravenous sedation with full cardiopulmonary monitoring. Digital rectal examination was normal. Olympus video colonoscope was passed in the rectum and manipulated throughout the colon ultimately intubating the cecal area. Biopsy forcep Electronically Signed By: SUAD PINA MD 01/24/22 1732 PATIENT NAME: CLAUDIO PAZ OPERATIVE REPORT DATE OF : 43 REPORT #: [id number] PHYSICIAN: SUAD PINA MD PCP: KYLIE GODFREY MD REPORT IS CONFIDENTIAL AND NOT TO BE RELEASED WITHOUT AUTHORIZATION [facility] [address] [place], [place] [address] Signed was used to elevate the mucosa and the ileocecal valve, which was normal. Scope was also noted to allow for visualization of an area of hyperplasia of the proximal ascending colon, this was biopsied. The scope was withdrawn from that point. Examination throughout showed no sign of abnormality other than a few scattered diverticula in the left colon. The anastomosis was widely patent. There is a submucosal tattoo dye noted. The scope was removed. The patient was taken to the recovery room in good condition. CONCLUDING DIAGNOSIS: Essentially normal. PLAN: Recommend repeat colonoscopy in one year, sooner if clinically indicated. He will return to the ongoing care of Dr. Godfrey as well as Dr. Ro, his oncologist. MD CLYDE Britt/ANJUM /[id number] cc: Dr. Dc Ro MD Copies: KYLIE RO MD ~ Electronically Signed By: SUAD PINA MD 01/24/22 1732 PATIENT NAME: CLAUDIO PAZ OPERATIVE REPORT DATE OF : 43 REPORT #: [id number] PHYSICIAN: SUAD PINA MD PCP: KYLIE GODFREY MD REPORT IS CONFIDENTIAL AND NOT TO BE RELEASED WITHOUT AUTHORIZATION
--- NOTE | 2022-01-27 17:44 | PATH ---
[facility] [address] [place], [place] [address] Signed SPECIMEN(S): A ASCENDING/RIGHT COLON BIOPSY SPECIMEN SOURCE: A. ASCENDING/RIGHT COLON BIOPSY CLINICAL HISTORY: 2019 rectal cancer with low anterior resection with anastomosis. FINAL PATHOLOGIC DIAGNOSIS: Ascending/right colon, biopsy: - Polypoid colonic mucosa negative for pathologic inflammation, epithelial dysplasia or malignancy (two fragments). JVR:reneec:[id number] MICROSCOPIC EXAMINATION: Histologic sections of all submitted blocks are examined by light microscopy. These findings, together with the gross examination, support the pathologic diagnosis. GROSS DESCRIPTION: The specimen, labeled "MF, per the requisition, ascending/right colon biopsy," is received in formalin and consists of three mclaughlin soft tissue fragments that measure 0.2 cm in greatest dimension. The specimen is entirely submitted in cassette (A1). CA (under the direct supervision of a pathologist) The Gross Description was prepared using a voice recognition system. The report was reviewed for accuracy; however, sound-alike word errors, addition and/or deletions may occur. If there is any question about this report, please contact Client Services. PERFORMING LABORATORY: The technical component was performed by [facility], [address] [place] [id number] (CLIA# [id number]). Professional interpretation was performed by [facility] - [facility], [address] [place] [id number] (CLIA#: [id number]). Diagnostician: Americo Hanley MD Pathologist Electronically Signed 01/27/2022 PATIENT NAME: CLAUDIO PAZ PATHOLOGY DATE OF : 43 REPORT #: [id number] PHYSICIAN: [facility] PCP: KYLIE GODFREY MD REPORT IS CONFIDENTIAL AND NOT TO BE RELEASED WITHOUT AUTHORIZATION [address] [address] Signed Copies: ~ PATIENT NAME: CLAUDIO PAZ PATHOLOGY DATE OF : 43 REPORT #: [id number] PHYSICIAN: [facility] PCP: KYLIE GODFREY MD REPORT IS CONFIDENTIAL AND NOT TO BE RELEASED WITHOUT AUTHORIZATION
== END 2022-01-23 14:10 | disposition home or self-care (01) ==
LOC: OPS 10:43 → DS 10:49 → OPS 14:10
PROVIDERS: ATTEND Surgery
PROC: 0DBK8ZX Excision of Ascending Colon, Via Natural or Artificial Opening Endoscopic, Diagnostic (ICD-10-PCS; principal; 2022-01-23 12:00)
DX: Z12.11 Encounter for screening for malignant neoplasm of colon (principal); Z85.038 Personal history of other malignant neoplasm of large intestine; K57.30 Diverticulosis of large intestine without perforation or abscess without bleeding; Z87.891 Personal history of nicotine dependence; K63.89 Other specified diseases of intestine
CPT/HCPCS: 88305; 99153; G0500; J2250; J3010; J7121

== ENCOUNTER 2024-06-28 11:17 | Day surgery (SDC) | payer MEDICARE, OTHER ==
[~2024-06-28] VITALS: Ht 172.7 cm; Wt 90.9 kg
[~2024-06-28 11:17] MED LIST changes: +IBLOOD GLUCOSE TEST STRIP 1 EA TEST VI PRN; +LACTATED RINGER'S 1,000 ML IV SCH; +LIDOCAINE HCL 1% 5 ML SDV INJ ONE; +MIDAZOLAM HCL 5 MG/5 ML VIAL IV PRN; +MIDAZOLAM HCL 5 MG/5 ML VIAL ONE; +[UNRECOGNIZED DRUG - OTHER]; +fentaNYL citrate 100 MCG/2 ML VIAL IV PRN; +fentaNYL citrate 100 MCG/2 ML VIAL ONE
[2024-06-28 11:38] VITALS: BP 140/71
[2024-06-28] MEDS ORDERED: PRESERVISION A1 EAC3 PO (11:42)
--- NOTE | 2024-06-28 12:58 | NUR ---
06/28/24 Moni Azul PATIENT'S OXYGEN SATURATION REMAINS 98% ON 3L VIA NC. O2 IS DECREASED TO 1L VIA NC.
[2024-06-28 13:31] VITALS: BP 128/69
--- NOTE | 2024-06-28 17:24 | OR ---
[facility] [address] [place], [place] [address] Signed DATE OF OPERATION: 06/28/2024 SURGEON: Suad Pina MD PREOPERATIVE DIAGNOSIS: History of low rectal cancer, status post neoadjuvant chemoradiation therapy and subsequent very low anterior resection in 2019. POSTOPERATIVE DIAGNOSIS: Widely patent anastomosis, minimal edema, rectal remnant and possible small polyp. PROCEDURE: Total colonoscopy to cecum with cold morcellation polypectomy x1 and biopsy of rectum x1. ANESTHESIA: Intravenous sedation fentanyl 100 mcg and Versed 4 mg. INDICATION: This 78-year-old white man is a patient of Dr. Kylie Godfrey and additionally Dr. Kylie Ferraro. He underwent neoadjuvant chemoradiation therapy following diagnosis of an obstructing rectal cancer requiring diverting colostomy. Following his neoadjuvant chemoradiation therapy underwent very low anterior resection in 2019. He has had no evidence of recurrence and continues to do well. He is here for surveillance colonoscopy, understand the risk of bleeding, infection, and perforation. FINDINGS: The prep was adequate. Complete colonoscopy was undertaken of the cecum. The anastomosis was widely patent. There was mucosal edema of the rectal remnant (which was minimal) and a small polyp in the area as well, which was excised. There were no other findings of note. DESCRIPTION OF PROCEDURE: The patient was brought to the endoscopy suite and placed in lateral decubitus position, given intravenous sedation to the point of slurred speech and nystagmus. Digital rectal examination was normal. Sphincter tone was normal. An Olympus video colonoscope was passed in the rectum and manipulated throughout the colon ultimately intubating the cecum itself. A fair amount of irrigation was required on the basis of his bowel prep quality. Ileocecal valve and appendiceal orifice were normal. Scope was withdrawn from that point and examination undertaken throughout showing no sign of abnormality. The low coloproctostomy (anastomosis) was widely patent. There was a small polyp in the Electronically Signed By: SUAD PINA MD 06/28/24 1724 PATIENT NAME: CLAUDIO PAZ OPERATIVE REPORT DATE OF : 43 REPORT #: [id number] PHYSICIAN: SUAD PINA MD PCP: KYLIE GODFREY MD REPORT IS CONFIDENTIAL AND NOT TO BE RELEASED WITHOUT AUTHORIZATION [facility] [address] [place], [place] [address] Signed area which was excised with cold morcellation technique. Additionally, there was edema of the mucosa for which biopsy was obtained though this most likely represents distant effect of radiation therapy in the past. Scope was removed. The patient was taken to recovery room in good condition. CONCLUDING DIAGNOSIS: No evidence of recurrent disease. PLAN: Would recommend repeat colonoscopy in one year, particularly if the biopsy did confirm polyp. He will return to the ongoing care of Dr. Kylie Godfrey and Dr. Kylie Ferraro. MD CLYDE Britt/LLUVIAL /[id number] cc: MD Kylie Magaña MD Copies: KYLIE GODFREY DMD, ROBERT C MD ~ Electronically Signed By: SUAD PINA MD 06/28/24 1724 PATIENT NAME: CLAUDIO PAZ OPERATIVE REPORT DATE OF : 43 REPORT #: [id number] PHYSICIAN: SUAD PINA MD PCP: KYLIE GODFREY MD REPORT IS CONFIDENTIAL AND NOT TO BE RELEASED WITHOUT AUTHORIZATION
--- NOTE | 2024-06-30 11:15 | PATH ---
[facility] [address] [place] [place], [place] [address] Signed SPECIMEN(S): A RECTUM SPECIMEN(S): B RECTAL POLYP SPECIMEN SOURCE: A. RECTUM B. RECTAL POLYP CLINICAL HISTORY: History of colon polyps, history of rectal CA 2019 and history of radiation therapy. Postop: Radiation proctitis, rectal polyp FINAL PATHOLOGIC DIAGNOSIS: A. Rectum, biopsy: - Colonic mucosa with no significant pathologic changes B. Rectum, polypectomy: - Hyperplastic polyp BRP MICROSCOPIC EXAMINATION: Histologic sections of all submitted blocks are examined by light microscopy. These findings, together with the gross examination, support the pathologic diagnosis. GROSS DESCRIPTION: A. The specimen, labeled and designated "Nanette, Dwain, rectum," is received in formalin and consists of two mclaughlin soft tissue fragments, ranging from 0.3-0.4 cm. Entirely submitted in (A1). B. The specimen, labeled and designated "Nanette, Dwain, rectal polyp," is received in formalin and consists of one mclaughlin soft tissue fragment, 0.4 cm. Entirely submitted in (B1). AB (under the direct supervision of a pathologist) The Gross Description was prepared using a voice recognition system. The report was reviewed for accuracy; however, sound-alike word errors, addition and/or deletions may occur. If there is any question about this report, please contact Client Services. ADDITIONAL NOTES: Immunohistochemical and/or in situ hybridization studies if performed in this case included appropriate positive controls that reacted as expected. This test was developed and its performance characteristics determined by [facility]. It has not been cleared or PATIENT NAME: CLAUDIO PAZ PATHOLOGY DATE OF : 43 REPORT #: [id number] PHYSICIAN: SOBIA SUMNER PCP: KYLIE GODFREY MD REPORT IS CONFIDENTIAL AND NOT TO BE RELEASED WITHOUT AUTHORIZATION [facility] [address] [place] [address] Signed approved by the U.S. Food and Drug Administration. The FDA has determined that such clearance or approval is not necessary. This test is used for clinical purposes. It should not be regarded as investigational or for research. [facility] is certified under the Clinical Laboratory Improvement Amendments of 1988 (CLIA) as qualified to perform high complexity clinical laboratory testing. PERFORMING LABORATORY: Technical component was performed by [facility], [address] [place] [address] (CLIA# [id number]). Professional interpretation was performed by [facility] - [facility], [address] [place] [address] (CLIA#: [id number]). Diagnostician: López Dominguez MD Pathologist Electronically Signed 06/30/2024 Copies: ~ PATIENT NAME: CLAUDIO PAZ PATHOLOGY DATE OF : 43 REPORT #: [id number] PHYSICIAN: [facility] PCP: KYLIE GODFREY MD REPORT IS CONFIDENTIAL AND NOT TO BE RELEASED WITHOUT AUTHORIZATION
== END 2024-06-28 13:40 | disposition home or self-care (01) ==
LOC: OPS 11:17 → DS 12:15 → OPS 12:15
PROVIDERS: ATTEND Surgery
PROC: 0DBP8ZX Excision of Rectum, Via Natural or Artificial Opening Endoscopic, Diagnostic (ICD-10-PCS; principal; 2024-06-28 12:15)
DX: Z12.11 Encounter for screening for malignant neoplasm of colon (principal); K62.1 Rectal polyp; Z85.048 Personal history of other malignant neoplasm of rectum, rectosigmoid junction, and anus; Z86.0101 Personal history of adenomatous and serrated colon polyps; Z87.891 Personal history of nicotine dependence; Z90.49 Acquired absence of other specified parts of digestive tract; Z88.0 Allergy status to penicillin
CPT/HCPCS: J2250; J3010; J7121